=== PATIENT | female | born 1940 | race Caucasian/White ===

== ENCOUNTER 2023-11-16 10:59 | Inpatient (IN) | payer MEDICARE, SELFPAY ==
[2023-11-16] VITALS (19 sets, daily range): BP systolic 133–179; BP diastolic 65–97; PULSE 106–125; RESP 16–29; TEMP 36.2–36.6; O2SAT 97–100; BMI 19.8
--- NOTE | ~2023-11-16 | CT_ITS ---
EXAMINATION: CT brain wo con DATE: 11/16/2023 13:44 INDICATION: Altered mental status TECHNIQUE: Computed tomography (CT) of the head was performed without intravenous contrast. The dose- length product was 605.33 mGy-cm. Automated exposure control and iterative reconstruction technique w ere employed. COMPARISON: None FINDINGS: No acute intracranial hemorrhage, infarction, mass or mass effect. Paranasal sinuses and ma stoids are pneumatized. No ventriculomegaly or midline shift. Generalized atrophy. There are scattere d mild periventricular and subcortical white matter changes, most likely related to small vessel isch emic disease (microangiopathy). No depressed skull fractures. Mild intracranial atherosclerosis. IMPRESSION: 1. . No acute intracranial abnormality. Reviewed, dictated and finalized at location B.
--- NOTE | ~2023-11-16 | XR_ITS ---
EXAMINATION: XR chest 1V portable 11/16/2023 11:53 INDICATION: Chest pain and weakness PROCEDURE: AP portable chest COMPARISON: No prior studies for comparison. FINDINGS: The lungs are clear. There is mild cardiomegaly.. There are no pleural effusions. There i s no pneumothorax suspected. Prominent left nipple shadow. IMPRESSION: 1: NO ACUTE CARDIOPULMONARY DISEASE. Reviewed, dictated and finalized at location B.
--- NOTE | ~2023-11-16 | CT_ITS ---
CT chest abdomen pelvis w con Ordering provider: Kostas Rajan MD History: 83 years Female with . Cough congestion abdominal pain . Comparison: None. Technique: CT chest with IV contrast. CT abdomen and pelvis CT abdomen and pelvis with IV and with or al contrast. Radiation reduction technique utilized. The dose-length product was 770.63 mGy-cm. FINDINGS: CHEST: Dilatation of the esophagus is noted with air-fluid level which may indicate reflux or narrowing of t he gastroesophageal junction. Further evaluation advised. --VISUALIZED THORACIC INLET: Normal. --MEDIASTINUM: Aorta/coronary arteries: Mild atheromatous disease. Heart/other: The heart is moderately enlarged. Lymph nodes: No mediastinal or hilar adenopathy. --LUNGS: Atelectasis with minimal effusion seen on the right side. Minimal atelectatic changes in the left side. No pulmonary nodules or masses. No infiltrates. No pneumothorax. --MUSCULOSKELETAL: Soft tissues: The superficial soft tissues are normal. Bones: Moderate degenerative changes of the spine. No suspicious bony lytic or sclerotic lesions. Dex troscoliosis. ABDOMEN/PELVIS: --MUSCULOSKELETAL: Bones: Age appropriate degenerative changes of the spine. No suspicious bony lytic or sclerotic lesio ns. Superficial soft tissues: The superficial soft tissues are normal. --UPPER ABDOMINAL ORGANS: Liver: Normal. Gallbladder: Status post cholecystectomy. Spleen: Normal. Stomach/duodenum: Dilated esophagus with slightly thickened wall of the stomach. Further evaluation a dvised. Pancreas: Normal. Adrenals: Slightly prominent adrenal glands. Kidneys: Possible hypodensity in the left upper pole area. --PELVIC ORGANS: The bladder is normal. No bladder stones. --BOWEL AND MESENTERY: Colon: No evidence of diverticulitis.. Appendix is normal.. Fecal material is impacted in the rectum. Small Bowel: Normal. No obstruction. Peritoneum/mesentery: No free air or free fluid. No mesenteric lymphadenopathy. --RETROPERITONEUM: Mild atheromatous disease of the abdominal aorta. Stents are seen in the common f emoral arteries. No retroperitoneal lymphadenopathy. IMPRESSION: CHEST: 1. Bilateral basal atelectasis with minimal right pleural effusion. 2. Dilated esophagus with air-fluid level and food content. ABDOMEN/PELVIS: 1. No evidence of appendicitis, diverticulitis or intestinal obstruction. 2. Thickened wall of the stomach with Dilated esophagus. Further evaluation advised. 3. Possible hypodensity in the left kidney upper pole. Artifacts are seen in the area. 4. Impacted fecal material in the rectum. Reviewed, dictated and finalized at location A. IMPRESSION: CHEST: 1. Bilateral basal atelectasis with minimal right pleural effusion. 2. Dilated esophagus with air-fluid level and food content. ABDOMEN/PELVIS: 1. No evidence of appendicitis, diverticulitis or intestinal obstruction. 2. Thickened wall of the stomach with Dilated esophagus. Further evaluation ad vised. 3. Possible hypodensity in the left kidney upper pole. Artifacts are seen in t he area. 4. Impacted fecal material in the rectum.
--- NOTE | 2023-11-16 11:16 | ECG_ITS ---
Test Date: 2023-11-16 11:13:08 Measurements Intervals [place] Rate: 117 P: 0 MT: 0 QRS: -74 QRSD: 101 T: 6 QT: 336 QTc: 470 Interpretive Statements ATRIAL FIBRILLATION WITH RAPID VENTRICULAR RESPONSE LOW QRS VOLTAGE IN LIMB LEADS INCOMPLETE RIGHT BUNDLE BRANCH BLOCK LEFT ANTERIOR FASCICULAR BLOCK BASELINE ARTIFACT- I, II, III, AVR, AVL, AVF, V1-V6 ABNORMAL ECG No previous ECG available for comparison Electronically Signed On 11-16-2023 15:40:47 CDT by Chalino Madden D.O.
[2023-11-16 11:31] LABS: Basophils Percent Auto 0.4 % (0.2-1.2); Eosinophils Absolute Auto 0.1 K/mm3 (0-0.3); Eosinophils Percent Auto 0.5 % (0-4.4); Hematocrit 35.2 % (37.0-47.0); Hemoglobin 10.8 g/dL (12.0-15.0); Immature Granulocyte Absolute 0.09 K/mm3 (0.00-0.031); Immature Granulocyte Percent A 0.8 % (0-0.5); Lymphocytes Absolute Auto 0.93 K/mm3 (0.9-3.2); Lymphocytes Percent Auto 8.2 % (18.3-44.2); Mean Corpuscular HGB Conc 30.7 g/dl (32-36); Mean Corpuscular Hemoglobin 27.1 pg (26-34); Mean Corpuscular Volume 88.4 fl (80-100); Monocytes Absolute Auto 1.1 K/mm3 (0.1-0.6); Monocytes Percent Auto 10.1 % (2.6-8.5); Platelet Count Result 457 k/mm3 (150-375); Red Blood Count 3.98 M/mm3 (4.2-5.4); Red Cell Distribution Width 22.6 % (11.5-14.5); White Blood Count 11.3 K/mm3 (4.5-10.0)
[2023-11-16] MEDS: ONDANSETRON INJ 4 MG/2 ML VIAL IV PUSH (11:38)
[2023-11-16] MEDS: SODIUM CHLORIDE 0.9% IV 1,000 ML 999 ML IV CONT (11:38)
[2023-11-16] MEDS: FAMOTIDINE 20 MG/2 ML VIAL IV PUSH (11:38)
[2023-11-16] MEDS: PANTOPRAZOLE SODIUM IV 40 MG VIAL IV PUSH (11:39)
[2023-11-16 11:43] LABS: INR 2.3; Prothrombin Time 25.6 Seconds (11.1-14.7)
[2023-11-16 11:44] LABS: Partial Thromboplastin Time 31.7 Seconds (22.3-36.8)
[2023-11-16 11:55] LABS: Hypochromasia 1+; Platelet Estimate Adequate (Adequate); Schistocytes None Seen
[2023-11-16 11:56] LABS: Add Urine Microscopic? YES; Appearance Urine Cloudy (Clear); Bacteria Urine None Seen /hpf; Bilirubin Urine Negative (Negative); Blood Urine Negative (Negative); Color Urine Yellow (Yellow); Glucose Urine UA Negative (Negative); Ketones Urine Negative (Negative); Leukocyte Esterase Ur Negative LEU/UL (Negative); Nitrate Urine Negative (Negative); Non Pathogenic Casts 0-2; Protein Urine 1+ mg/dL (Negative); RBC Urine 0-2 /hpf (0-2); Specific Grav Ur 1.016 (1.001-1.035); Squamous Epithelial Cell Urine None Seen /hpf (Few); WBC Urine 0-5 /hpf (0-3); pH Urine 7.5 (5.0-9.0)
[2023-11-16 11:57] LABS: Anisocytosis 1+; Crenated RBC 1+
[2023-11-16 13:14] LABS: Alanine Aminotransferase 12 U/L (6-35); Albumin Level 3.6 g/dL (3.5-5.1); Alkaline Phosphatase 80 U/L (38-126); Anion Gap 7 mmol/L (4-12); Aspartate Amino Transferase 19 U/L (14-36); Bilirubin,Total 1.1 mg/dL (0.2-1.3); Blood Urea Nitrogen 14 mg/dL (7-17); Calcium 8.5 mg/dL (8.4-10.2); Carbon Dioxide 22 mmol/L (22-30); Chloride 109 mmol/L (98-107); Estimated CRCL calculation 59 ml/min; Estimated Glomerular Filt Rate > 60; Glucose 98 mg/dL (65-110); Sodium 138 mmol/L (137-145)
[2023-11-16 13:21] LABS: Troponin I < 0.012 ng/mL (0.000-0.034)
--- NOTE | 2023-11-16 13:31 | ED_ITS ---
HPI - Altered Mental Status General Chief Complaint: Altered Mental Status Stated Complaint: mult complaints Time Seen by Provider: 11/16/23 11:14 History of Present Illness HPI narrative: 83-year-old female presented to the emergency department for evaluation for increased generalized weakness, increased congestion with increased nausea and vomiting. Patient is currently residing in [facility] due to increased generalized weakness. Does have a chronic wound on her left lower extremity that is improving per family and is being followed by wound care. Family feels the patient has been having cognitive decline over the last few days. Related Data Home Medications Medication Instructions Recorded Confirmed multivitamin 1 tablet PO DAILY 02/05/19 11/03/23 Allergies Allergy/AdvReac Type Severity Reaction Status Date / Time Sulfa (Sulfonamide Allergy Itching Verified 02/05/19 21:38 Antibiotics) Review of Systems Review of Systems: All systems reviewed & are unremarkable except as noted in HPI and below PMFSH Past Medical History Medical History (Updated 11/16/23 @ 19:52 by Kostas Rajan MD) Atrial fibrillation Dyslipidemia Glaucoma Hypertension Parkinsonian syndrome Patient's son states they were told she did not have this. Peripheral arterial disease Surgical History Surgical History (Updated 11/16/23 @ 18:13 by Leidy oRse PA-C) History of cardiac catheterization History of cataract extraction History of cholecystectomy History of lumbar laminectomy Family History Family History Father Acute myocardial infarction Cerebrovascular accident Other Hypertension Social History Social History (Updated 11/16/23 @ 18:43 by Leidy Rose PA-C) Social History: Surrogate medical decision maker: Jaime Meier, son. Code status: Full code. Smoking packs per day: 0.5 Smoking cigarettes per day: 10.0 Years smoked: 20 Smoking pack-years: 10.00 Smoking status: Former smoker Tobacco type: cigarettes Second hand tobacco smoke exposure: Yes Alcohol intake: former Substance use: never Do You Feel Safe in your Home?: Yes Lack of Transportation: No Lack of Food: Never True Current Housing: I Have Housing Concerned About Future Housing: No Difficulty Paying Gas/Electric Bills: No Difficulty Paying for Meds: No Currently Unemployed: No Education: High School Diploma/GED Difficulty w/ Childcare or Family Care: No Spiritual care concerns: No Agree to blood products: Yes Exam Narrative: APPEARANCE: Ill-appearing HEAD: normocephalic, atraumatic. EYES: PERRLA/EOMI, conjunctivae clear. NOSE: Normal no drainage EARS:TMS clear with good light reflex. THROAT: Pharynx clear, no exudate. NECK: Supple. No adenopathy, no masses. RESPIRATORY: Rhonchi bilaterally CARDIOVASCULAR: Regular rate and rhythm without murmurs rubs or gallops. ABDOMINAL: Soft, nontender, nondistended, normal bowel sounds MUSCULOSKELETAL: Moves all extremities. Strength/ROM intact, No edema, No calf tenderness. NEURO: Alert. Cranial nerves II through XII intact. Grossly intact SKIN: Warm, dry. Normal Color Course Course Emergency Course: Patient was admitted for AFib with RVR and further evaluation for suspected aspi ration Vital Signs Vital signs: Vital Signs Temperature 97.1 F L 11/16/23 11:08 Pulse Rate 119 H 11/16/23 11:08 Respiratory Rate 22 H 11/16/23 11:08 Blood Pressure 164/87 H 11/16/23 11:08 Pulse Oximetry 100 11/16/23 11:08 Oxygen Delivery Room Air 11/16/23 11:08 Temperature 97.2 F L 11/16/23 19:14 Pulse Rate 117 H 11/16/23 19:14 Respiratory Rate 16 11/16/23 19:14 Blood Pressure 133/77 11/16/23 19:14 Pulse Oximetry 98 11/16/23 19:14 Oxygen Delivery Room Air 11/16/23 11:08 MDM - Altered Mental Status MDM Narrative Medical decision making narrative: 83-year-old female presenting to the emergency department for evaluation for cognitive decline increased congestion with associated nausea vomiting. Patient was afebrile but does have a leukocytosis of 11.3 patient's hemoglobin is 10.8 which is similar to her baseline. Elevated INR at 2.3. Patient's CMP is similar to her baseline. UA was negative for infection. Chest x-ray showed no acute cardiopulmonary abnormality. Head CT was ordered due to the patient's co gnitive decline to evaluate for CVA, subdural hematoma or subarachnoid hemorrhage and no acute abnormalities were identified. CT chest abdomen pelvis was ordered due to the patient having chest congestion and complaining of intermittent abdominal discomfort with associated nausea and vomiting. CT did show dilated esophagus with air-fluid level. No evidence of pneumonia. Patient does have history of atrial fibrillation and is on Cardizem. Patient has been unable to tolerate her p.o. medications. Patient was started on Cardizem bolus and infusion patient's heart rate was improved. I discussed the case with the hospitalist patient was accepted for admission to IMU for rate control and GI was consulted. Patient and family were comfortable the plan for admission. All questions concerns were addressed. Differential Diagnosis Differential diagnosis: Likely altered mental status, delirium, dementia and subarachnoid hemorrhage Lab Data Attestation: I reviewed the patient's lab results. 11/16/23 11:21 11/16/23 12:47 Labs: Lab Results 11/16/23 11/16/23 11/16/23 Range/Units 11:21 11:41 12:47 WBC 11.3 H (4.5-10.0) K/mm3 RBC 3.98 L (4.2-5.4) M/mm3 Hgb 10.8 L (12.0-15.0) g/dL Hct 35.2 L (37.0-47.0) % MCV 88.4 (80-100) fl MCH 27.1 (26-34) pg MCHC 30.7 L (32-36) g/dl RDW 22.6 H (11.5-14.5) % Plt Count 457 H (150-375) k/mm3 MPV 9.0 (7.4-10.4) fl Immature Gran % (Auto) 0.8 H (0-0.5) % Neut % (Auto) 80.0 H (45.5-73.1) % Lymph % (Auto) 8.2 L (18.3-44.2) % [place] % (Auto) 10.1 H (2.6-8.5) % Eos % (Auto) 0.5 (0-4.4) % Baso % (Auto) 0.4 (0.2-1.2) % Lymph # (Auto) 0.93 (0.9-3.2) K/mm3 [place] # (Auto) 1.1 H (0.1-0.6) K/mm3 Eos # (Auto) 0.1 (0-0.3) K/mm3 Baso # (Auto) 0.0 (0.0-0.1) K/mm3 Abs Immat Gran (auto) 0.09 H (0.00-0.031) K/mm3 Absolute Neuts (auto) 9.0 H (1.3-6.7) K/mm3 Absolute Nucleated RBC 0.000 (0.0-0.012) K/mm3 Nucleated RBC % 0.0 (0.0-0.2) % Platelet Estimate Adequate (Adequate) Hypochromasia 1+ Anisocytosis 1+ Crenated Cell 1+ Schistocytes None seen PT 25.6 H (11.1-14.7) Seconds INR 2.3 APTT 31.7 (22.3-36.8) Seconds Sodium Cancelled Potassium Chloride Carbon Dioxide Anion Gap BUN Creatinine Estim Creat Clear Calc Estimated GFR Glucose Calcium Total Bilirubin AST ALT Alkaline Phosphatase Troponin I (0.000-0.034) ng/mL Total Protein Albumin Urine Color Yellow (Yellow) Urine Appearance Cloudy H (Clear) Urine pH 7.5 (5.0-9.0) Ur Specific [place] 1.016 (1.001-1.035) Urine Protein 1+ H (Negative) mg/dL Urine Glucose (UA) Negative (Negative) mg/dL Urine Ketones Negative (Negative) mg/dL Ur Blood (Man) Negative (Negative) Urine Nitrate Negative (Negative) Urine Bilirubin Negative (Negative) Urine Urobilinogen 1.0 (<2.0) mg/dL Leukocyte Esterase Rfl Negative (Negative) JORGE LUIS/UL Urine RBC 0-2 (0-2) /hpf Urine WBC 0-5 (0-3) /hpf Ur Squamous Epith Cells None seen (Few) /hpf Urine Bacteria None seen /hpf Urine Casts 0-2 11/16/23 11/16/23 11/16/23 Range/Units 12:47 12:47 12:47 WBC (4.5-10.0) K/mm3 RBC (4.2-5.4) M/mm3 Hgb (12.0-15.0) g/dL Hct (37.0-47.0) % MCV (80-100) fl MCH (26-34) pg MCHC (32-36) g/dl RDW (11.5-14.5) % Plt Count (150-375) k/mm3 MPV (7.4-10.4) fl Immature Gran % (Auto) (0-0.5) % Neut % (Auto) (45.5-73.1) % Lymph % (Auto) (18.3-44.2) % [place] % (Auto) (2.6-8.5) % Eos % (Auto) (0-4.4) % Baso % (Auto) (0.2-1.2) % Lymph # (Auto) (0.9-3.2) K/mm3 [place] # (Auto) (0.1-0.6) K/mm3 Eos # (Auto) (0-0.3) K/mm3 Baso # (Auto) (0.0-0.1) K/mm3 Abs Immat Gran (auto) (0.00-0.031) K/mm3 Absolute Neuts (auto) (1.3-6.7) K/mm3 Absolute Nucleated RBC (0.0-0.012) K/mm3 Nucleated RBC % (0.0-0.2) % Platelet Estimate (Adequate) Hypochromasia Anisocytosis Crenated Cell Schistocytes PT (11.1-14.7) Seconds INR APTT (22.3-36.8) Seconds Sodium 138 Potassium Cancelled 4.0 Chloride Cancelled 109 H Carbon Dioxide Cancelled Anion Gap BUN Creatinine Estim Creat Clear Calc Estimated GFR Glucose Calcium Total Bilirubin AST ALT Alkaline Phosphatase Troponin I (0.000-0.034) ng/mL Total Protein Albumin Urine Color (Yellow) Urine Appearance (Clear) Urine pH (5.0-9.0) Ur Specific [place] (1.001-1.035) Urine Protein (Negative) mg/dL Urine Glucose (UA) (Negative) mg/dL Urine Ketones (Negative) mg/dL Ur Blood (Man) (Negative) Urine Nitrate (Negative) Urine Bilirubin (Negative) Urine Urobilinogen (<2.0) mg/dL Leukocyte Esterase Rfl (Negative) JORGE LUIS/UL Urine RBC (0-2) /hpf Urine WBC (0-3) /hpf Ur Squamous Epith Cells (Few) /hpf Urine Bacteria /hpf Urine Casts 11/16/23 11/16/23 11/16/23 Range/Units 12:47 12:47 12:47 WBC (4.5-10.0) K/mm3 RBC (4.2-5.4) M/mm3 Hgb (12.0-15.0) g/dL Hct (37.0-47.0) % MCV (80-100) fl MCH (26-34) pg MCHC (32-36) g/dl RDW (11.5-14.5) % Plt Count (150-375) k/mm3 MPV (7.4-10.4) fl Immature Gran % (Auto) (0-0.5) % Neut % (Auto) (45.5-73.1) % Lymph % (Auto) (18.3-44.2) % [place] % (Auto) (2.6-8.5) % Eos % (Auto) (0-4.4) % Baso % (Auto) (0.2-1.2) % Lymph # (Auto) (0.9-3.2) K/mm3 [place] # (Auto) (0.1-0.6) K/mm3 Eos # (Auto) (0-0.3) K/mm3 Baso # (Auto) (0.0-0.1) K/mm3 Abs Immat Gran (auto) (0.00-0.031) K/mm3 Absolute Neuts (auto) (1.3-6.7) K/mm3 Absolute Nucleated RBC (0.0-0.012) K/mm3 Nucleated RBC % (0.0-0.2) % Platelet Estimate (Adequate) Hypochromasia Anisocytosis Crenated Cell Schistocytes PT (11.1-14.7) Seconds INR APTT (22.3-36.8) Seconds Sodium Potassium Chloride Carbon Dioxide 22 Anion Gap Cancelled 7 BUN Cancelled 14 Creatinine Cancelled Estim Creat Clear Calc Estimated GFR Glucose Calcium Total Bilirubin AST ALT Alkaline Phosphatase Troponin I (0.000-0.034) ng/mL Total Protein Albumin Urine Color (Yellow) Urine Appearance (Clear) Urine pH (5.0-9.0) Ur Specific [place] (1.001-1.035) Urine Protein (Negative) mg/dL Urine Glucose (UA) (Negative) mg/dL Urine Ketones (Negative) mg/dL Ur Blood (Man) (Negative) Urine Nitrate (Negative) Urine Bilirubin (Negative) Urine Urobilinogen (<2.0) mg/dL Leukocyte Esterase Rfl (Negative) JORGE LUIS/UL Urine RBC (0-2) /hpf Urine WBC (0-3) /hpf Ur Squamous Epith Cells (Few) /hpf Urine Bacteria /hpf Urine Casts 11/16/23 11/16/23 11/16/23 Range/Units 12:47 12:47 12:47 WBC (4.5-10.0) K/mm3 RBC (4.2-5.4) M/mm3 Hgb (12.0-15.0) g/dL Hct (37.0-47.0) % MCV (80-100) fl MCH (26-34) pg MCHC (32-36) g/dl RDW (11.5-14.5) % Plt Count (150-375) k/mm3 MPV (7.4-10.4) fl Immature Gran % (Auto) (0-0.5) % Neut % (Auto) (45.5-73.1) % Lymph % (Auto) (18.3-44.2) % [place] % (Auto) (2.6-8.5) % Eos % (Auto) (0-4.4) % Baso % (Auto) (0.2-1.2) % Lymph # (Auto) (0.9-3.2) K/mm3 [place] # (Auto) (0.1-0.6) K/mm3 Eos # (Auto) (0-0.3) K/mm3 Baso # (Auto) (0.0-0.1) K/mm3 Abs Immat Gran (auto) (0.00-0.031) K/mm3 Absolute Neuts (auto) (1.3-6.7) K/mm3 Absolute Nucleated RBC (0.0-0.012) K/mm3 Nucleated RBC % (0.0-0.2) % Platelet Estimate (Adequate) Hypochromasia Anisocytosis Crenated Cell Schistocytes PT (11.1-14.7) Seconds INR APTT (22.3-36.8) Seconds Sodium Potassium Chloride Carbon Dioxide Anion Gap BUN Creatinine 0.60 L Estim Creat Clear Calc Cancelled 59 Estimated GFR Cancelled > 60 Glucose Cancelled Calcium Total Bilirubin AST ALT Alkaline Phosphatase Troponin I (0.000-0.034) ng/mL Total Protein Albumin Urine Color (Yellow) Urine Appearance (Clear) Urine pH (5.0-9.0) Ur Specific [place] (1.001-1.035) Urine Protein (Negative) mg/dL Urine Glucose (UA) (Negative) mg/dL Urine Ketones (Negative) mg/dL Ur Blood (Man) (Negative) Urine Nitrate (Negative) Urine Bilirubin (Negative) Urine Urobilinogen (<2.0) mg/dL Leukocyte Esterase Rfl (Negative) JORGE LUIS/UL Urine RBC (0-2) /hpf Urine WBC (0-3) /hpf Ur Squamous Epith Cells (Few) /hpf Urine Bacteria /hpf Urine Casts 11/16/23 11/16/23 11/16/23 Range/Units 12:47 12:47 12:47 WBC (4.5-10.0) K/mm3 RBC (4.2-5.4) M/mm3 Hgb (12.0-15.0) g/dL Hct (37.0-47.0) % MCV (80-100) fl MCH (26-34) pg MCHC (32-36) g/dl RDW (11.5-14.5) % Plt Count (150-375) k/mm3 MPV (7.4-10.4) fl Immature Gran % (Auto) (0-0.5) % Neut % (Auto) (45.5-73.1) % Lymph % (Auto) (18.3-44.2) % [place] % (Auto) (2.6-8.5) % Eos % (Auto) (0-4.4) % Baso % (Auto) (0.2-1.2) % Lymph # (Auto) (0.9-3.2) K/mm3 [place] # (Auto) (0.1-0.6) K/mm3 Eos # (Auto) (0-0.3) K/mm3 Baso # (Auto) (0.0-0.1) K/mm3 Abs Immat Gran (auto) (0.00-0.031) K/mm3 Absolute Neuts (auto) (1.3-6.7) K/mm3 Absolute Nucleated RBC (0.0-0.012) K/mm3 Nucleated RBC % (0.0-0.2) % Platelet Estimate (Adequate) Hypochromasia Anisocytosis Crenated Cell Schistocytes PT (11.1-14.7) Seconds INR APTT (22.3-36.8) Seconds Sodium Potassium Chloride Carbon Dioxide Anion Gap BUN Creatinine Estim Creat Clear Calc Estimated GFR Glucose 98 Calcium Cancelled 8.5 Total Bilirubin Cancelled 1.1 AST Cancelled ALT Alkaline Phosphatase Troponin I (0.000-0.034) ng/mL Total Protein Albumin Urine Color (Yellow) Urine Appearance (Clear) Urine pH (5.0-9.0) Ur Specific [place] (1.001-1.035) Urine Protein (Negative) mg/dL Urine Glucose (UA) (Negative) mg/dL Urine Ketones (Negative) mg/dL Ur Blood (Man) (Negative) Urine Nitrate (Negative) Urine Bilirubin (Negative) Urine Urobilinogen (<2.0) mg/dL Leukocyte Esterase Rfl (Negative) JORGE LUIS/UL Urine RBC (0-2) /hpf Urine WBC (0-3) /hpf Ur Squamous Epith Cells (Few) /hpf Urine Bacteria /hpf Urine Casts 11/16/23 11/16/23 11/16/23 Range/Units 12:47 12:47 12:47 WBC (4.5-10.0) K/mm3 RBC (4.2-5.4) M/mm3 Hgb (12.0-15.0) g/dL Hct (37.0-47.0) % MCV (80-100) fl MCH (26-34) pg MCHC (32-36) g/dl RDW (11.5-14.5) % Plt Count (150-375) k/mm3 MPV (7.4-10.4) fl Immature Gran % (Auto) (0-0.5) % Neut % (Auto) (45.5-73.1) % Lymph % (Auto) (18.3-44.2) % [place] % (Auto) (2.6-8.5) % Eos % (Auto) (0-4.4) % Baso % (Auto) (0.2-1.2) % Lymph # (Auto) (0.9-3.2) K/mm3 [place] # (Auto) (0.1-0.6) K/mm3 Eos # (Auto) (0-0.3) K/mm3 Baso # (Auto) (0.0-0.1) K/mm3 Abs Immat Gran (auto) (0.00-0.031) K/mm3 Absolute Neuts (auto) (1.3-6.7) K/mm3 Absolute Nucleated RBC (0.0-0.012) K/mm3 Nucleated RBC % (0.0-0.2) % Platelet Estimate (Adequate) Hypochromasia Anisocytosis Crenated Cell Schistocytes PT (11.1-14.7) Seconds INR APTT (22.3-36.8) Seconds Sodium Potassium Chloride Carbon Dioxide Anion Gap BUN Creatinine Estim Creat Clear Calc Estimated GFR Glucose Calcium Total Bilirubin AST 19 ALT Cancelled 12 Alkaline Phosphatase Cancelled 80 Troponin I < 0.012 (0.000-0.034) ng/mL Total Protein Cancelled Albumin Urine Color (Yellow) Urine Appearance (Clear) Urine pH (5.0-9.0) Ur Specific [place] (1.001-1.035) Urine Protein (Negative) mg/dL Urine Glucose (UA) (Negative) mg/dL Urine Ketones (Negative) mg/dL Ur Blood (Man) (Negative) Urine Nitrate (Negative) Urine Bilirubin (Negative) Urine Urobilinogen (<2.0) mg/dL Leukocyte Esterase Rfl (Negative) JORGE LUIS/UL Urine RBC (0-2) /hpf Urine WBC (0-3) /hpf Ur Squamous Epith Cells (Few) /hpf Urine Bacteria /hpf Urine Casts 11/16/23 11/16/23 11/16/23 Range/Units 12:47 12:47 13:59 WBC (4.5-10.0) K/mm3 RBC (4.2-5.4) M/mm3 Hgb (12.0-15.0) g/dL Hct (37.0-47.0) % MCV (80-100) fl MCH (26-34) pg MCHC (32-36) g/dl RDW (11.5-14.5) % Plt Count (150-375) k/mm3 MPV (7.4-10.4) fl Immature Gran % (Auto) (0-0.5) % Neut % (Auto) (45.5-73.1) % Lymph % (Auto) (18.3-44.2) % [place] % (Auto) (2.6-8.5) % Eos % (Auto) (0-4.4) % Baso % (Auto) (0.2-1.2) % Lymph # (Auto) (0.9-3.2) K/mm3 [place] # (Auto) (0.1-0.6) K/mm3 Eos # (Auto) (0-0.3) K/mm3 Baso # (Auto) (0.0-0.1) K/mm3 Abs Immat Gran (auto) (0.00-0.031) K/mm3 Absolute Neuts (auto) (1.3-6.7) K/mm3 Absolute Nucleated RBC (0.0-0.012) K/mm3 Nucleated RBC % (0.0-0.2) % Platelet Estimate (Adequate) Hypochromasia Anisocytosis Crenated Cell Schistocytes PT (11.1-14.7) Seconds INR APTT (22.3-36.8) Seconds Sodium Potassium Chloride Carbon Dioxide Anion Gap BUN Creatinine Estim Creat Clear Calc Estimated GFR Glucose Calcium Total Bilirubin AST ALT Alkaline Phosphatase Troponin I < 0.012 (0.000-0.034) ng/mL Total Protein 7.0 Albumin Cancelled 3.6 Urine Color (Yellow) Urine Appearance (Clear) Urine pH (5.0-9.0) Ur Specific [place] (1.001-1.035) Urine Protein (Negative) mg/dL Urine Glucose (UA) (Negative) mg/dL Urine Ketones (Negative) mg/dL Ur Blood (Man) (Negative) Urine Nitrate (Negative) Urine Bilirubin (Negative) Urine Urobilinogen (<2.0) mg/dL Leukocyte Esterase Rfl (Negative) JORGE LUIS/UL Urine RBC (0-2) /hpf Urine WBC (0-3) /hpf Ur Squamous Epith Cells (Few) /hpf Urine Bacteria /hpf Urine Casts Imaging Data Radiologist's impression: Impressions Chest X-Ray 11/16/23 12:03 IMPRESSION: 1: NO ACUTE CARDIOPULMONARY DISEASE. Head CT 11/16/23 13:52 IMPRESSION: 1. . No acute intracranial abnormality. Chest/Abdomen/Pelvis CT 11/16/23 14:17 IMPRESSION: CHEST: 1. Bilateral basal atelectasis with minimal right pleural effusion. 2. Dilated esophagus with air-fluid level and food content. ABDOMEN/PELVIS: 1. No evidence of appendicitis, diverticulitis or intestinal obstruction. 2. Thickened wall of the stomach with Dilated esophagus. Further evaluation advised. 3. Possible hypodensity in the left kidney upper pole. Artifacts are seen in the area. 4. Impacted fecal material in the rectum. Critical Care Time Critical Care Time Critical Care Time: Yes Total Critical Care Time: 35 Discharge Plan Discharge Clinical Impression: Atrial fibrillation with rapid ventricular response, AMS (altered mental status), Dilatation of esophagus Patient Disposition: Still a Patient Condition: Stable
[2023-11-16] MEDS: dilTIAZem HCl INJ 25 MG/5 ML VIAL 10 MG IV PUSH (14:24)
[2023-11-16] MEDS: dilTIAZem 100 MG/100 ML 100 MG/100 ML BAG IV CONT (14:24)
[2023-11-16 14:25] LABS: Troponin I < 0.012 ng/mL (0.000-0.034)
--- NOTE | 2023-11-16 15:20 | PM.IMHP ---
H&P: HPI History of Present Illness Date/Time: 11/16/23 17:00 Chief Complaint: Confusion, vomiting, and weakness. Narrative: This is an 83-year-old female with history of atrial fibrillation on chronic anticoagulation, peripheral vascular disease status post carotid endarterectomy and bilateral lower extremity angioplasty and stents, hypertension, dyslipidemia, gastroesophageal reflux disease, anemia, and spinal stenosis who presented to the emergency department via [facility] for evaluation of confusion, vomiting, and weakness. The patient can not provide some history however her son Jaime provides the majority of the following. The patient has had multiple surgeries this year including carotid endarterectomy, bilateral lower extremity PTCA, and EGD for evaluation of dark stools found to have benign gastric polyp. Over the last couple of months family members have noticed that she has been getting confused and that has worsened quite dramatically since she was admitted to [facility] 3 weeks ago for rehab. She has become increasingly weak and is now to the point where she is being transferred with a lift. Family members had dinner with her last night and she seemed to be doing okay. This morning they received a phone call that the patient seemed to be more confused and was actively vomiting. She told her son that she was having some pain in her back as well. There are no reports of fever, cold or flu symptoms, falls, hematemesis, or diarrhea. At the time my evaluation she does not have active complaints and denies chest pain, shortness of breath, abdominal pain, and nausea. She has chronic lower extremity wound which always causes her a bit of pain but not more so than usual at this time. In the ED: Vital signs on arrival include a temperature of 97.1?, blood pressure 164/87, pulse 119, respiratory rate 22, SpO2 100% on room air. EKG showed atrial fibrillation with rapid ventricular response, incomplete right bundle-branch block, low QRS voltage in limb leads, left anterior fascicular block. Labs were significant for WBC count of 11.3, hemoglobin 10.8, INR 2.3, troponin < 0.012. Head CT and chest x-ray were without acute findings. CT of the chest, abdomen, and pelvis showed dilated esophagus with air-fluid level in food content and thickened wall of the stomach as well as impacted fecal material in the rectum. She has been started on a diltiazem drip and she is being admitted in this setting for further treatment and evaluation including GI consultation. Review of Systems Review of Systems: 12 systems were reviewed and are negative except for as per HPI. [facility] Past Medical History Medical History (Updated 11/16/23 @ 22:21 by Leidy Rose PA-C) Atrial fibrillation Chronic anticoagulation Dyslipidemia Glaucoma Hypertension Parkinsonian syndrome Patient has tremors of the arms and jaw but has not had a diagnosis of Parkinson's. Peripheral vascular disease Surgical History Surgical History (Updated 11/16/23 @ 22:15 by Leidy Rose PA-C) History of angioplasty of peripheral vessel Bilateral lower extremity angioplasty and stents. History of cardiac catheterization History of carotid endarterectomy History of cataract extraction History of cholecystectomy History of lumbar laminectomy Family History Family History Father Acute myocardial infarction Cerebrovascular accident Other Hypertension Social History Social History (Updated 11/16/23 @ 22:24 by Leidy Rose PA-C) Social History: Healthcare power of sports attorney: Jaime Meier, shira ([phone]). Code status: Full code. Smoking packs per day: 0.5 Smoking cigarettes per day: 10.0 Years smoked: 20 Smoking pack-years: 10.00 Smoking status: Former smoker Tobacco type: cigarettes Second hand tobacco smoke exposure: Yes Alcohol intake: former Substance use: never Do You Feel Safe in your Home?: Yes Lack of Transportation: No Lack of Food: Never True Current Housing: I Have Housing Concerned About Future Housing: No Difficulty Paying Gas/Electric Bills: No Difficulty Paying for Meds: No Currently Unemployed: No Education: High School Diploma/GED Difficulty w/ Childcare or Family Care: No Spiritual care concerns: No Agree to blood products: Yes Meds Home Medications and Allergies Home Medications Medication Instructions Recorded Confirmed Type multivitamin 1 tablet PO DAILY 02/05/19 11/16/23 History brimonidine 0.2 % eye drops 1 drp LEFT EYE BID #1 mL 02/19/19 11/16/23 Rx brinzolamide 1 %-brimonidine 0.2 % 1 drp ophthalmic (eye) BID #1 mL 02/19/19 11/16/23 Rx eye drops,suspension (Simbrinza) candesartan 32 1 tablet PO DAILY #30 tabs 02/19/19 11/16/23 Rx mg-hydrochlorothiazide 12.5 mg tablet diltiazem HCl 360 mg capsule,24 360 mg PO DAILY #30 caps 02/19/19 11/16/23 Rx hr,extended release gabapentin 300 mg capsule 300 mg PO BID #60 caps 02/19/19 11/16/23 Rx garlic 1,000 mg capsule 1,000 mg PO DAILY #30 caps 02/19/19 11/16/23 Rx latanoprost 0.005 % eye drops 1 drp ophthalmic (eye) HS #1 mL 02/19/19 11/16/23 Rx omeprazole magnesium 20 mg 20 mg PO DAILY #30 caps 02/19/19 11/16/23 Rx capsule,delayed release (Acid Revenue [employer]ant (omeprazole)) potassium chloride 20 mEq 20 meq PO DAILY@0800 #30 tabs 02/19/19 11/16/23 Rx tablet,extended release (K-Tab) pravastatin 20 mg tablet 20 mg PO HS #30 tabs 02/19/19 11/16/23 Rx propranolol 60 mg tablet 60 mg PO Q12H #60 tabs 02/19/19 11/16/23 Rx tizanidine 4 mg tablet 4 mg PO Q8H PRN Muscle Spasm #90 02/19/19 11/16/23 Rx tabs Allergies Allergy/AdvReac Type Severity Reaction Status Date / Time Sulfa (Sulfonamide Allergy Itching Verified 02/05/19 21:38 Antibiotics) Vital Signs Vital Signs - 24 hr 11/16/23 11:08 11/16/23 11:16 11/16/23 11:40 Temperature 97.1 F L Pulse Rate 119 H 123 H 117 H Respiratory Rate 22 H 29 H Blood Pressure 164/87 H Pulse Oximetry 100 100 Oxygen Delivery Room Air 11/16/23 11:46 11/16/23 12:45 11/16/23 14:24 Temperature Pulse Rate 119 H 124 H 115 H Respiratory Rate 26 H 18 Blood Pressure 176/96 H 179/95 H 153/97 H Pulse Oximetry 98 100 Oxygen Delivery 11/16/23 14:27 11/16/23 15:07 11/16/23 15:08 Temperature Pulse Rate 109 H 116 H 115 H Respiratory Rate 20 21 H Blood Pressure 153/97 H 156/77 H 156/77 H Pulse Oximetry 100 100 Oxygen Delivery Exam Narrative: General: Chronically ill, frail elderly female in the semi-Salvador position in bed. Weight: 57.4 kg. BMI: 19.8. HEENT: PERRL, EOMI. Sclera anicteric. Tacky mucous membranes. Neck: Supple. No JVD. Respiratory: Respirations are nonlabored. Lungs are clear a little coarse at the bases but otherwise clear to auscultation. Cardiovascular: Irregularly irregular rate and rhythm. Gastrointestinal: Abdomen is soft, nontender, and nondistended with positive bowel sounds. Occasional belching. Skin: Warm and dry. Feet are cool. Chronic hyperpigmentation of both lower legs consistent with vascular disease. There are scattered ulcerated areas on the toes on both feet. There is an irregularly-shaped ulcer on the left anterior king with pink wound bed and scattered sloughing without evidence of nonviable tissue. A similar smaller ulcer is noted on the right anterior king. Extremities: No cyanosis or clubbing. Chronic [place] edema of the lower legs. Neurological: Alert and oriented x2. Cranial nerves 2-12 are grossly intact. Speech is clear. Generalized weakness without obvious focal deficits. Psychiatric: Pleasantly confused and cooperative. Appropriate mood and flat affect. Repetitive. H&P: Results Labs Labs: Short CBC 11/16/23 Range/Units 11:21 WBC 11.3 H (4.5-10.0) K/mm3 Hgb 10.8 L (12.0-15.0) g/dL Hct 35.2 L (37.0-47.0) % Plt Count 457 H (150-375) k/mm3 BMP 11/16/23 11/16/23 11/16/23 12:47 12:47 12:47 Sodium Cancelled 138 Potassium Cancelled 4.0 Chloride Cancelled Carbon Dioxide BUN Creatinine Glucose Calcium 11/16/23 11/16/23 11/16/23 12:47 12:47 12:47 Sodium Potassium Chloride 109 H Carbon Dioxide Cancelled 22 BUN Cancelled 14 Creatinine Cancelled Glucose Calcium 11/16/23 11/16/23 11/16/23 12:47 12:47 12:47 Sodium Potassium Chloride Carbon Dioxide BUN Creatinine 0.60 L Glucose Cancelled 98 Calcium Cancelled 8.5 Cardiac Enzymes 11/16/23 11/16/23 Range/Units 12:47 13:59 Troponin I < 0.012 < 0.012 (0.000-0.034) ng/mL Liver Function 11/16/23 11/16/23 11/16/23 Range/Units 12:47 12:47 12:47 Total Bilirubin Cancelled 1.1 AST Cancelled 19 ALT Cancelled Alkaline Phosphatase Albumin 11/16/23 11/16/23 11/16/23 Range/Units 12:47 12:47 12:47 Total Bilirubin AST ALT 12 Alkaline Phosphatase Cancelled 80 Albumin Cancelled 3.6 Urine 11/16/23 Range/Units 11:41 Urine Color Yellow (Yellow) Urine Appearance Cloudy H (Clear) Urine pH 7.5 (5.0-9.0) Ur Specific [place] 1.016 (1.001-1.035) Urine Protein 1+ H (Negative) mg/dL Urine Glucose (UA) Negative (Negative) mg/dL Impressions Chest X-Ray 11/16/23 12:03 IMPRESSION: 1: NO ACUTE CARDIOPULMONARY DISEASE. Head CT 11/16/23 13:52 IMPRESSION: 1. .No acute intracranial abnormality. Chest/Abdomen/Pelvis CT 11/16/23 14:17 IMPRESSION: CHEST: 1. Bilateral basal atelectasis with minimal right pleural effusion. 2. Dilated esophagus with air-fluid level and food content. ABDOMEN/PELVIS: 1. No evidence of appendicitis, diverticulitis or intestinal obstruction. 2. Thickened wall of the stomach with Dilated esophagus. Further evaluation advised. 3. Possible hypodensity in the left kidney upper pole. Artifacts are seen in the area. 4. Impacted fecal material in the rectum. 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 Labs, imaging, EKG, and all reports were personally reviewed. The confusion seems to have been developing over last couple of months though has been worse over the last 3 weeks. She has had numerous procedures, hospitalizations, and same-day surgery this year and now she is at [facility] for rehab and the changes in environments are probably a contributing factor. I will ask the nurses to promote a good sleep-wake cycle and minimize interruptions. She is in rapid atrial fibrillation, likely due to the fact that she has not been able to hold down her diltiazem. Continue diltiazem drip at 15 mg/hr which is her typical daily dose. CT scan shows a dilated esophagus with food particles and thickening of the stomach for which Dr. Herman has been consulted. Xarelto is on hold as she may need EGD tomorrow. If she is NPO for longer than 24 hours a heparin drip may be appropriate. Fecal impaction was also noted on CT scan and can be addressed once she is able to lie flat. Chronic anemia stable on review of previous labs. Her chronic wounds look better according to the son. Wound nurse has been consulted. Her home medications will be reviewed and transitioned to IV form if appropriate. Findings and treatment plan were discussed with the patient. Questions were solicited and answered to satisfaction. The patient's medical management will be taken over by the hospitalist team in a.m. Quality VTE Prophylaxis VTE prophylaxis: mechanical ordered If No VTE Prophylaxis Answer both mechanical and pharmacologic: Reason no pharmacologic proph: medical contraindication (possible procedure tomorrow) The patient has been admitted under observation status. Hospitalist MIPS Advance Care Plan I have confirmed that the patient's Advanced Care Plan is present, code status is documented, or surrogate decision maker is listed in patient medical record.: Yes Medication Reconciliation I have utilized all available resources to obtain, update and review the patients current medications (includes all prescriptions, OTC, herbals, cannabis, and nutritional supplements).: Yes
[2023-11-16] MEDS: METOPROLOL TARTRATE INJ 5 MG/5 ML VIAL IV PUSH (18:40)
[2023-11-16] MEDS: LATANOPROST 0.005% OP SOLN 2.5 ML BTL 1 DROP EACH EYE (21:26)
[2023-11-16] MEDS: dilTIAZem 100 MG/100 ML 100 MG/100 ML BAG 15 MG IV CONT (22:59)
[2023-11-17] VITALS (32 sets, daily range): BP systolic 119–150; BP diastolic 68–104; PULSE 82–139; RESP 16–20; TEMP 36.2–37.1; O2SAT 96–100
[2023-11-17 00:27] LABS: Folic Acid 8.8 ng/mL (2.76->20)
[2023-11-17 05:01] LABS: Hematocrit 34.1 % (37.0-47.0); Hemoglobin 10.4 g/dL (12.0-15.0); Mean Corpuscular HGB Conc 30.5 g/dl (32-36); Mean Corpuscular Hemoglobin 26.5 pg (26-34); Mean Corpuscular Volume 86.8 fl (80-100); Mean Platelet Volume 8.9 fl (7.4-10.4); Platelet Count Result 422 k/mm3 (150-375); Red Blood Count 3.93 M/mm3 (4.2-5.4); Red Cell Distribution Width 21.9 % (11.5-14.5); White Blood Count 9.5 K/mm3 (4.5-10.0)
[2023-11-17 05:18] LABS: Anion Gap 12 mmol/L (4-12); Blood Urea Nitrogen 10 mg/dL (7-17); Calcium 8.8 mg/dL (8.4-10.2); Carbon Dioxide 17 mmol/L (22-30); Chloride 108 mmol/L (98-107); Estimated CRCL calculation 55 ml/min; Estimated Glomerular Filt Rate > 60; Glucose 90 mg/dL (65-110); Potassium 3.8 mmol/L (3.4-5.0); Sodium 137 mmol/L (137-145)
[2023-11-17] MEDS: dilTIAZem 100 MG/100 ML 100 MG/100 ML BAG 15 MG IV CONT ×2 (05:35→12:41)
[2023-11-17] MEDS: BRIMONIDINE TARTRATE 0.2% OP SOLN 5 ML BTL 1 DROP LEFT EYE ×2 (09:13→18:34)
[2023-11-17] MEDS: BRINZOLAMIDE 1% OPHTH SUSP 10 ML 1 DROP LEFT EYE ×2 (09:14→18:34)
[2023-11-17] MEDS: PANTOPRAZOLE SODIUM IV 40 MG VIAL IV PUSH ×2 (09:15→20:45)
[2023-11-17] MEDS: ONDANSETRON INJ 4 MG/2 ML VIAL IV PUSH (13:42)
--- NOTE | 2023-11-17 14:22 | P.CONGI_ITS ---
I, Nehemias Tolentino MD, have provided a substantive portion of the care of this patient and discussed the patient with my Nurse Practitioner. I have reviewed any new relevant radiographic and laboratory results including medications. I agree with her documentation as noted below.?I personally performed the medical decision making and much of the history and exam for this encounter. Assessment and Plan Assessment and plan (1) Dilatation of esophagus: Code(s): K22.89 - Other specified disease of esophagus Status: Acute Assessment and Plan: Patient had one vomiting episode after breakfast day of admission 11/16/23. CT chest /abd/pelvis noted dilation of the esophagus with air-fluid levels which may indicate reflux or narrowing at the gastroesophageal junction and slightly thickened wall the stomach. Chronic GERD history and has been maintained on Omeprazole 20 mg daily. She is not on NSAIDs but is on alendronate which can cause esophagitis. She could have underlying stricture at GE junction vs. esophagitis vs. malignancy although less likely or underlying achalasia, although less likely as this is not chronic problem with vomiting or even trouble swallowing. Had EGD 12/2022 due to GI bleed secondary to bleeding gastric polyp on anticoagulation at [facility]. -Will give her clear liquids and advance as tolerated, NPO at midnight for possible EGD tomorrow with Dr. Torrez. She will need to be cleared by cardiology and HR will be need to be better controlled although. -Last dose of Xarelto 11/15/23 evening. Continue to hold for anticipatory EGD tomorrow if cleared by cardiology. -Increase pantoprazole 40 mg IV BID -Monitor for vomiting. (2) Gastric wall thickening: Code(s): K31.89 - Other diseases of stomach and duodenum Status: Acute Assessment and Plan: EGD to be arranged (3) Atrial fibrillation with rapid ventricular response: Code(s): I48.91 - Unspecified atrial fibrillation Status: Acute Assessment and Plan: On cardizem drip HR 130s Cardiology consult pending, appreciate recs. Will need clearance for EGD once stable (4) GERD (gastroesophageal reflux disease): Code(s): K21.9 - Gastro-esophageal reflux disease without esophagitis Status: Acute (5) Hypertension: Code(s): I10 - Essential (primary) hypertension Status: Acute (6) Chronic anemia: Code(s): D64.9 - Anemia, unspecified Status: Acute Assessment and Plan: Stable (7) Chronic anticoagulation: Code(s): Z79.01 - alf (current) use of anticoagulants Status: Acute (8) Peripheral vascular disease: Code(s): I73.9 - Peripheral vascular disease, unspecified Status: Acute GI Consult Note Consult date/time: 11/17/23 14:00 Reason for consult: Reflux HPI: Farnaz Meier is a 83 year old female asked to be seen for request of the hospitalist for reflux. She has a past medical history of AFib on chronic anticoagulation (Eliquis-last dose friday), GI bleed (bleeding gastric polyp 12/2022), peripheral vascular disease status post carotid endarterectomy and bilateral lower extremity angioplasty and stents, hypertension, dyslipidemia, GERD, anemia, and spinal stenosis who presented to the emergency department via EMS from [facility] for evaluation of confusion, vomiting, and weakness. She resides at [facility] for rehab where she has been becoming more confused. Two family members at bedside. Most of history obtained from family at bedside. Family reports that they got a call yesterday morning as patient shortly after breakfast vomited up her food a nd her medications. They were unable to get any further medications or food. She was not having issues with vomiting the night prior with dinner per family. Patient denies any nausea, vomiting, dysphagia odynophagia leading up to yesterday morning she denies any postprandial epigastric pain, constipation, diarrhea, melena or hematochezia. She has been on omeprazole 20 mg daily for many years per family. Patient states that she would occasionally have reflux despite Omeprazole 20 mg daily. Her family states since she has been here in the hospital she has had increased belching and a cough. No known family history of any GI malignancies. Her appetite has been somewhat diminished at her new facility. Denies any NSAIDs. She is on alendronate. Last dose of Elqiuis Friday evening. Today, she has no GI complaints. She is currently NPO. She does state she does not feel well but can't tell me why. She is irregular and tachycardiac on exam. Currently on Cardizem drip and HR 130s on monitor. CT Chest/Abd/Pelvis with Contrast: FINDINGS: CHEST: Dilatation of the esophagus is noted with air-fluid level which may indicate reflux or narrowing of the gastroesophageal junction. Further evaluation advised. --VISUALIZED THORACIC INLET: Normal. --MEDIASTINUM: Aorta/coronary arteries: Mild atheromatous disease. Heart/other: The heart is moderately enlarged. Lymph nodes: No mediastinal or hilar adenopathy. --LUNGS: Atelectasis with minimal effusion seen on the right side. Minimal atelectatic changes in the left side. No pulmonary nodules or masses. No infiltrates. No pneumothorax. --MUSCULOSKELETAL: Soft tissues: The superficial soft tissues are normal. Bones: Moderate degenerative changes of the spine. No suspicious bony lytic or sclerotic lesions. Dextroscoliosis. ABDOMEN/PELVIS: --MUSCULOSKELETAL: Bones: Age appropriate degenerative changes of the spine. No suspicious bony lytic or sclerotic lesions. Superficial soft tissues: The superficial soft tissues are normal. --UPPER ABDOMINAL ORGANS: Liver: Normal. Gallbladder: Status post cholecystectomy. Spleen: Normal. Stomach/duodenum: Dilated esophagus with slightly thickened wall of the stomach. Further evaluation advised. Pancreas: Normal. Adrenals: Slightly prominent adrenal glands. Kidneys: Possible hypodensity in the left upper pole area. --PELVIC ORGANS: The bladder is normal. No bladder stones. --BOWEL AND MESENTERY: Colon: No evidence of diverticulitis.. Appendix is normal.. Fecal material is impacted in the rectum. Small Bowel: Normal. No obstruction. Peritoneum/mesentery: No free air or free fluid. No mesenteric lymphadenopathy. --RETROPERITONEUM: Mild atheromatous disease of the abdominal aorta. Stents are seen in the common femoral arteries. No retroperitoneal lymphadenopathy. IMPRESSION: CHEST: 1. Bilateral basal atelectasis with minimal right pleural effusion. 2. Dilated esophagus with air-fluid level and food content. ABDOMEN/PELVIS: 1. No evidence of appendicitis, diverticulitis or intestinal obstruction. 2. Thickened wall of the stomach with Dilated esophagus. Further evaluation advised. 3. Possible hypodensity in the left kidney upper pole. Artifacts are seen in the area. 4. Impacted fecal material in the rectum. [facility] Past Medical History Medical History (Updated 11/17/23 @ 14:36 by Alice Hernandez APRN) Atrial fibrillation Chronic anticoagulation Dyslipidemia Glaucoma Hypertension Parkinsonian syndrome Patient has tremors of the arms and jaw but has not had a diagnosis of Parkinson's. Peripheral vascular disease Surgical History Surgical History (Updated 11/16/23 @ 22:15 by Leidy Rose PA-C) History of angioplasty of peripheral vessel Bilateral lower extremity angioplasty and stents. History of cardiac catheterization History of carotid endarterectomy History of cataract extraction History of cholecystectomy History of lumbar laminectomy Family History Family History Father Acute myocardial infarction Cerebrovascular accident Other Hypertension Social History Social History (Updated 11/16/23 @ 22:24 by Leidy Rose PA-C) Social History: Healthcare power of estate attorney: Jaime Meier, shira ([phone]). Code status: Full code. Smoking packs per day: 0.5 Smoking cigarettes per day: 10.0 Years smoked: 20 Smoking pack-years: 10.00 Smoking status: Former smoker Tobacco type: cigarettes Second hand tobacco smoke exposure: Yes Alcohol intake: former Substance use: never Do You Feel Safe in your Home?: Yes Lack of Transportation: No Lack of Food: Never True Current Housing: I Have Housing Concerned About Future Housing: No Difficulty Paying Gas/Electric Bills: No Difficulty Paying for Meds: No Currently Unemployed: No Education: High School Diploma/GED Difficulty w/ Childcare or Family Care: No Spiritual care concerns: No Agree to blood products: Yes Meds Home Medications and Allergies Home Medications Medication Instructions Recorded Confirmed Type multivitamin 1 tablet PO DAILY 02/05/19 11/16/23 History brinzolamide 1 %-brimonidine 0.2 % 1 drp ophthalmic (eye) BID #1 mL 02/19/19 11/16/23 Rx eye drops,suspension (Simbrinza) candesartan 32 1 tablet PO DAILY #30 tabs 02/19/19 11/16/23 Rx mg-hydrochlorothiazide 12.5 mg tablet diltiazem HCl 360 mg capsule,24 360 mg PO DAILY #30 caps 02/19/19 11/16/23 Rx hr,extended release latanoprost 0.005 % eye drops 1 drp ophthalmic (eye) HS #1 mL 02/19/19 11/16/23 Rx omeprazole magnesium 20 mg 20 mg PO DAILY #30 caps 02/19/19 11/16/23 Rx capsule,delayed release (Acid [employer] (omeprazole)) potassium chloride 20 mEq 20 meq PO DAILY@0800 #30 tabs 02/19/19 11/16/23 Rx tablet,extended release (K-Tab) pravastatin 20 mg tablet 20 mg PO HS #30 tabs 02/19/19 11/16/23 Rx propranolol 60 mg tablet 60 mg PO Q12H #60 tabs 02/19/19 11/16/23 Rx alendronate 70 mg tablet 70 mg PO WEEKLY 11/17/23 11/17/23 History aspirin 81 mg chewable tablet 81 mg PO QPM 11/17/23 11/17/23 History calcium carbonate 600 mg-vitamin 1 tablet PO QPM 11/17/23 11/17/23 History D3 10 mcg (400 unit) tablet (Calcium with Vitamin D) cyanocobalamin (vitamin B-12) 1,000 mcg IM [id number] 11/17/23 11/17/23 History 1,000 mcg/mL injection solution docusate sodium 100 mg capsule 100 mg PO BID PRN Constipation 11/17/23 11/17/23 History gabapentin 100 mg capsule 100 mg PO TID 11/17/23 11/17/23 History iron,carbonyl 30 mg-vitamin C 10 1 tablet PO BID 11/17/23 11/17/23 History mg-FOS 25 mg chewable tablet light mineral oil 1 %-mineral oil 1 drp ophthalmic (eye) TID PRN Dry 11/17/23 11/17/23 History 4.5 % eye drops (Soothe XP) Eyes megestrol 625 mg/5 mL (125 mg/mL) 5 ml PO DAILY 11/17/23 11/17/23 History oral suspension rivaroxaban 20 mg tablet (Xarelto) 20 mg PO QPM 11/17/23 11/17/23 History sodium chloride 1,000 mg soluble 1,000 mg PO BID 11/17/23 11/17/23 History tablet timolol 0.5 % eye drops 1 drp EACH EYE DAILY 11/17/23 11/17/23 History urea 20 % topical cream 1 applic topical DAILY 11/17/23 11/17/23 History (Ureacin-20) Allergies Allergy/AdvReac Type Severity Reaction Status Date / Time Sulfa (Sulfonamide Allergy Itching Verified 02/05/19 21:38 Antibiotics) Vital Signs Vital Signs - 24 hr 11/16/23 14:24 11/16/23 14:27 11/16/23 15:07 Temperature Pulse Rate 115 H 109 H 116 H Respiratory Rate 20 Blood Pressure 153/97 H 153/97 H 156/77 H Pulse Oximetry 100 Oxygen Delivery 11/16/23 15:08 11/16/23 16:31 11/16/23 17:48 Temperature 97.8 F 97.7 F Pulse Rate 115 H 108 H 125 H Respiratory Rate 21 H 19 16 Blood Pressure 156/77 H 149/70 H 151/81 H Pulse Oximetry 100 97 100 Oxygen Delivery 11/16/23 18:40 11/16/23 19:14 11/16/23 18:00 Temperature 97.2 F L Pulse Rate 123 H 117 H 113 H Respiratory Rate 16 Blood Pressure 133/77 Pulse Oximetry 98 Oxygen Delivery 11/16/23 20:00 11/16/23 22:04 11/16/23 22:00 Temperature Pulse Rate 117 H 117 H 106 H Respiratory Rate Blood Pressure 133/77 147/65 H Pulse Oximetry Oxygen Delivery 11/16/23 20:00 11/16/23 22:00 11/16/23 20:00 Temperature Pulse Rate 115 H 115 H Respiratory Rate Blood Pressure Pulse Oximetry Oxygen Delivery Room Air 11/16/23 22:59 11/16/23 22:58 11/17/23 00:00 Temperature 97.1 F L Pulse Rate 118 H 118 H 119 H Respiratory Rate 16 Blood Pressure 140/92 H Pulse Oximetry 98 Oxygen Delivery 11/17/23 00:00 11/17/23 00:00 11/17/23 00:00 Temperature Pulse Rate 113 H 113 H Respiratory Rate Blood Pressure Pulse Oximetry Oxygen Delivery Room Air 11/17/23 01:49 11/17/23 02:00 11/17/23 04:00 Temperature 97.8 F Pulse Rate 120 H 96 137 H Respiratory Rate 16 Blood Pressure 149/78 H 150/70 H Pulse Oximetry 98 Oxygen Delivery 11/17/23 04:00 11/17/23 04:00 11/17/23 04:00 Temperature Pulse Rate 121 H 121 H Respiratory Rate Blood Pressure Pulse Oximetry Oxygen Delivery Room Air 11/17/23 05:35 11/17/23 05:35 11/17/23 06:00 Temperature Pulse Rate 120 H 120 H 82 Respiratory Rate Blood Pressure 149/78 H Pulse Oximetry Oxygen Delivery 11/17/23 06:00 11/17/23 07:47 11/17/23 10:00 Temperature 98.8 F 97.6 F Pulse Rate 82 127 H 115 H Respiratory Rate 20 20 Blood Pressure 142/78 H 131/71 Pulse Oximetry 99 100 Oxygen Delivery 11/17/23 11:50 11/17/23 12:15 11/17/23 12:41 Temperature 98.0 F Pulse Rate 120 H 118 H 118 H Respiratory Rate 18 Blood Pressure 126/68 126/68 126/68 Pulse Oximetry 99 Oxygen Delivery 11/17/23 08:00 11/17/23 10:00 11/17/23 14:21 Temperature 98.1 F Pulse Rate 115 H 127 H 115 H Respiratory Rate 20 Blood Pressure 131/78 142/78 H 119/69 Pulse Oximetry 100 Oxygen Delivery 11/17/23 12:18 Temperature 98.0 F Pulse Rate 120 H Respiratory Rate 18 Blood Pressure 126/68 Pulse Oximetry 99 Oxygen Delivery Exam Resp: Auscultation: clear to auscultation bilaterally Cardio: Rate: tachycardic Rhythm: abnormal rhythm GI: GI Palp: Yes Soft to palpation, No Tenderness to palpation present (GI) and No Guarding due to palpation present (GI) Auscultation: normal bowel sounds Skin: General skin exam: normal color Neuro: Speech: normal speech Other: tremors noted to upper extremities Results Labs 11/17/23 04:30 11/17/23 04:30 Labs: Short CBC 11/17/23 Range/Units 04:30 WBC 9.5 (4.5-10.0) K/mm3 Hgb 10.4 L (12.0-15.0) g/dL Hct 34.1 L (37.0-47.0) % Plt Count 422 H (150-375) k/mm3 BMP 11/17/23 04:30 Sodium 137 Potassium 3.8 Chloride 108 H Carbon Dioxide 17 L BUN 10 Creatinine 0.60 L Glucose 90 Calcium 8.8 Cardiac Enzymes 11/16/23 Range/Units 13:59 Troponin I < 0.012 (0.000-0.034) ng/mL
--- NOTE | 2023-11-17 14:54 | PM.IMPN ---
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(s): Z79.01 - correction (current) use of anticoagulants Status: Acute (8) Peripheral vascular disease: Code(s): I73.9 - Peripheral vascular disease, unspecified Status: Acute (9) Confusion: Code(s): R41.0 - Disorientation, unspecified Status: Acute Plan The patient presented to the emergency department for evaluation of weakness, increasing confusion, and vomiting as detailed in HPI. Labs, imaging, EKG, and all reports were personally reviewed. The confusion seems to have been developing over last couple of months though has been worse over the last 3 weeks. She has had numerous procedures, hospitalizations, and same-day surgery this year and now she is at [facility] for rehab and the changes in environments are probably a contributing factor. I will ask the nurses to promote a good sleep-wake cycle and minimize interruptions. She is in rapid atrial fibrillation, likely due to the fact that she has not been able to hold down her diltiazem. Continue diltiazem drip at 15 mg/hr which is her typical daily dose. CT scan shows a dilated esophagus with food particles and thickening of the stomach for which Dr. Herman has been consulted. Xarelto is on hold as she may need EGD tomorrow. If she is NPO for longer than 24 hours a heparin drip may be appropriate. Fecal impaction was also noted on CT scan and can be addressed once she is able to lie flat. Chronic anemia stable on review of previous labs. Her chronic wounds look better according to the son. Wound nurse has been consulted. Her home medications will be reviewed and transitioned to IV form if appropriate. 11/16 : Continue cardizem drip Cardiology consulted NPO at midnight for possible EGD tomorrow to assess dilated esophagus with food particles and thickening of the stomach Neurology evaluated agrees with Parkinson's disease Subjective Date/time seen: 11/17/23 14:54 Interval history: Patient was evaluated at the bedside along with her son who is the POA. As mentioned in the HPI patient has multiple comorbid conditions. Patient heart rate has been in 120's in spite of Cardizem drip and it ahs increased from 10-15. Cardiology has been consulted . Currently she lives in [facility] but she has been deteriorating past 1 week rapidly. Lately she has some episodes of vomiting and back pain at the care home. Patient does also have evidence of pill rolling tremor evidence of Parkinson disease and the family wanted Neurology to be evaluated. During the conversation patient is an does not want any aggressive measures and wanted DNR. Review of Systems Review of Systems: 12 systems were reviewed and are negative except for as per HPI. Exam Narrative: General: Chronically ill, frail elderly female in the semi-Salvador position in bed. Weight: 57.4 kg. BMI: 19.8. HEENT: PERRL, EOMI. Sclera anicteric. Tacky mucous membranes. Neck: Supple. No JVD. Respiratory: Respirations are nonlabored. Lungs are clear a little coarse at the bases but otherwise clear to auscultation. Cardiovascular: Irregularly irregular rate and rhythm. Gastrointestinal: Abdomen is soft, nontender, and nondistended with positive bowel sounds. Occasional belching. Skin: Warm and dry. Feet are cool. Chronic hyperpigmentation of both lower legs consistent with vascular disease. There are scattered ulcerated areas on the toes on both feet. There is an irregularly-shaped ulcer on the left anterior king with pink wound bed and scattered sloughing without evidence of nonviable tissue. A similar smaller ulcer is noted on the right anterior king. Extremities: No cyanosis or clubbing. Chronic [place] edema of the lower legs. Neurological: Alert and oriented x2. Cranial nerves 2-12 are grossly intact. Speech is clear. Generalized weakness without obvious focal deficits. Psychiatric: Pleasantly confused and cooperative. Appropriate mood and flat affect. Repetitive. Objective Data Vital Signs Vital Signs: Vital Signs - 24 hr 11/16/23 15:07 11/16/23 15:08 11/16/23 16:31 Temperature 97.8 F Pulse Rate 116 H 115 H 108 H Respiratory Rate 21 H 19 Blood Pressure 156/77 H 156/77 H 149/70 H Pulse Oximetry 100 97 Oxygen Delivery 11/16/23 17:48 11/16/23 18:40 11/16/23 19:14 Temperature 97.7 F 97.2 F L Pulse Rate 125 H 123 H 117 H Respiratory Rate 16 16 Blood Pressure 151/81 H 133/77 Pulse Oximetry 100 98 Oxygen Delivery 11/16/23 18:00 11/16/23 20:00 11/16/23 22:04 Temperature Pulse Rate 113 H 117 H 117 H Respiratory Rate Blood Pressure 133/77 Pulse Oximetry Oxygen Delivery 11/16/23 22:00 11/16/23 20:00 11/16/23 22:00 Temperature Pulse Rate 106 H 115 H 115 H Respiratory Rate Blood Pressure 147/65 H Pulse Oximetry Oxygen Delivery 11/16/23 20:00 11/16/23 22:59 11/16/23 22:58 Temperature Pulse Rate 118 H 118 H Respiratory Rate Blood Pressure Pulse Oximetry Oxygen Delivery Room Air 11/17/23 00:00 11/17/23 00:00 11/17/23 00:00 Temperature 97.1 F L Pulse Rate 119 H 113 H Respiratory Rate 16 Blood Pressure 140/92 H Pulse Oximetry 98 Oxygen Delivery Room Air 11/17/23 00:00 11/17/23 01:49 11/17/23 02:00 Temperature Pulse Rate 113 H 120 H 96 Respiratory Rate Blood Pressure 149/78 H Pulse Oximetry Oxygen Delivery 11/17/23 04:00 11/17/23 04:00 11/17/23 04:00 Temperature 97.8 F Pulse Rate 137 H 121 H Respiratory Rate 16 Blood Pressure 150/70 H Pulse Oximetry 98 Oxygen Delivery Room Air 11/17/23 04:00 11/17/23 05:35 11/17/23 05:35 Temperature Pulse Rate 121 H 120 H 120 H Respiratory Rate Blood Pressure 149/78 H Pulse Oximetry Oxygen Delivery 11/17/23 06:00 11/17/23 06:00 11/17/23 07:47 Temperature 98.8 F Pulse Rate 82 82 127 H Respiratory Rate 20 Blood Pressure 142/78 H Pulse Oximetry 99 Oxygen Delivery 11/17/23 10:00 11/17/23 11:50 11/17/23 12:15 Temperature 97.6 F 98.0 F Pulse Rate 115 H 120 H 118 H Respiratory Rate 20 18 Blood Pressure 131/71 126/68 126/68 Pulse Oximetry 100 99 Oxygen Delivery 11/17/23 12:41 11/17/23 08:00 11/17/23 10:00 Temperature Pulse Rate 118 H 115 H 127 H Respiratory Rate Blood Pressure 126/68 131/78 142/78 H Pulse Oximetry Oxygen Delivery 11/17/23 14:21 11/17/23 12:18 Temperature 98.1 F 98.0 F Pulse Rate 115 H 120 H Respiratory Rate 20 18 Blood Pressure 119/69 126/68 Pulse Oximetry 100 99 Oxygen Delivery Intake/Output Intake/Output: Intake & Output 11/14/23 11/15/23 11/16/23 11/17/23 23:59 23:59 23:59 23:59 Intake Total 1100.0 199.0 Balance 1100.0 199.0 Meds/Results Medications: Active Medications Generic Name Dose Route Start Last Admin Trade Name Freq PRN Reason Stop Dose Admin Brimonidine Tartrate 1 drop 11/17/23 09:00 11/17/23 09:13 Brimonidine Tartrate 0.2% Op Soln 5 Ml Btl LEFT EYE 1 drop BID RAHEEL Administration Brinzolamide 1 drop 11/17/23 09:00 11/17/23 09:14 Brinzolamide 1% Ophth Susp 10 Ml LEFT EYE 1 drop BID RAHEEL Administration Diltiazem HCl 100 mg in 100 mls @ 15 mls/hr 11/16/23 20:55 11/17/23 12:41 Cardizem 100 Mg/100 Ml IV CONT 15 mg/hr .Q6H40M RAHEEL 15 mls/hr Administration 15 MG/HR Latanoprost 1 drop 11/16/23 21:00 11/16/23 21:26 Latanoprost 0.005% Op Soln 2.5 Ml Btl EACH EYE 1 drop HS RAHEEL Administration Ondansetron HCl 4 mg 11/16/23 15:04 11/17/23 13:42 Ondansetron Inj 4 Mg/2 Ml Vial IV PUSH 4 mg Q4H PRN Administration Nausea Pantoprazole Sodium 40 mg 11/17/23 21:00 Pantoprazole Sodium Iv 40 Mg Vial IV PUSH Q12HR [facility] Radiology Results: ITS Impressions Chest X-Ray 11/16/23 12:03 IMPRESSION: 1: NO ACUTE CARDIOPULMONARY DISEASE. Head CT 11/16/23 13:52 IMPRESSION: 1. . No acute intracranial abnormality. Chest/Abdomen/Pelvis CT 11/16/23 14:17 IMPRESSION: CHEST: 1. Bilateral basal atelectasis with minimal right pleural effusion. 2. Dilated esophagus with air-fluid level and food content. ABDOMEN/PELVIS: 1. No evidence of appendicitis, diverticulitis or intestinal obstruction. 2. Thickened wall of the stomach with Dilated esophagus. Further evaluation advised. 3. Possible hypodensity in the left kidney upper pole. Artifacts are seen in the area. 4. Impacted fecal material in the rectum. Labs Labs: Laboratory Results - last 24 hr 11/16/23 11/17/23 12:47 04:30 WBC 9.5 RBC 3.93 L Hgb 10.4 L Hct 34.1 L MCV 86.8 MCH 26.5 MCHC 30.5 L RDW 21.9 H Plt Count 422 H MPV 8.9 Sodium 137 Potassium 3.8 Chloride 108 H Carbon Dioxide 17 L Anion Gap 12 BUN 10 Creatinine 0.60 L Estim Creat Clear Calc 55 Estimated GFR > 60 Glucose 90 Calcium 8.8 Magnesium 2.0 Vitamin B12 303.0 Folate 8.8 TSH (Reflex) 1.080 Quality VTE Prophylaxis VTE prophylaxis: mechanical ordered Hospitalist MIPS Advance Care Plan I have confirmed that the patient's Advanced Care Plan is present, code status is documented, or surrogate decision maker is listed in patient medical record.: Yes Medication Reconciliation I have utilized all available resources to obtain, update and review the patients current medications (includes all prescriptions, OTC, herbals, cannabis, and nutritional supplements).: Yes
--- NOTE | 2023-11-17 16:48 | P.CONCA_ITS ---
Assessment and Plan Assessment and plan (1) Atrial fibrillation: Code(s): I48.91 - Unspecified atrial fibrillation Status: Acute Assessment and Plan: Chronic. Rapid currently. [id number] 5. On Xarelto which is on hold since cannot take PO. Increase Diltiazem drip 20 mg/hr and start Metoprolol tartate 5 mg IV every 2 hours prn for tachycardia with parameters. Once able to take PO meds then will resume Diltiazem PO and she is on Propranolol. Hopefully will be able to get HR under control by morning so she may proceed to EGD safely. (2) Peripheral vascular disease: Code(s): I73.9 - Peripheral vascular disease, unspecified Status: Acute Assessment and Plan: On aspirin and Xarelto normally. (3) Hypertension: Code(s): I10 - Essential (primary) hypertension Status: Acute Assessment and Plan: High. Monitor as HR is being controlled. (4) Dyslipidemia: Code(s): E78.5 - Hyperlipidemia, unspecified Status: Acute Assessment and Plan: On Pravastatin. History of Present Illness History of Present Illness Consult date/time: 11/17/23 16:48 Reason For Visit: Nausea/Vomiting/Afib with RVR Narrative: 83 yr old woman admitted for weakness, confusion, vomiting. She has a history of chronic atrial fibrillation, hypertension, dyslipidemia, PAD with PTCA and stents to bilateral legs in September 2023, right CEA in Mar 2023. Her regular remodeler is Dr. Avendano at [place]. Her son is at bedside. Due to vomiting she has not been absorbing her medication she is taking. She is now NPO for plans to do EGD tomorrow if her HR is controlled. She is currently placed on Diltiazem drip. She reports feeling weak. Normally she cannot walk due to progressive weakness of legs which could be due to PAD. Denies chest pain, sob, orthopnea, PND, edema, dizziness. Review of Systems Review of Systems: All systems reviewed & are unremarkable except as noted in HPI and below Constitutional: Constitutional: Reports as per HPI, Denies chills, Reports fatigue, Denies fever(s) and Reports lethargy Cardiovascular: Cardiovascular: Reports as per HPI and Denies chest pain Respiratory: Respiratory: Reports as per HPI and Denies dyspnea Gastrointestinal: Gastrointestinal: Reports as per HPI and Reports vomiting Genitourinary: Genitourinary: Reports as per HPI and Denies dysuria Musculoskeletal: Musculoskeletal: Reports as per HPI Neurologic: Reports as per HPI, Denies dizziness and Denies syncope [facility] Past Medical History Medical History (Updated 11/17/23 @ 17:04 by Chalino Madden DO) Atrial fibrillation Chronic anticoagulation Dyslipidemia Glaucoma Hypertension Parkinsonian syndrome Patient has tremors of the arms and jaw but has not had a diagnosis of Parkinson's. Peripheral vascular disease Surgical History Surgical History (Updated 11/16/23 @ 22:15 by Leidy Rose PA-C) History of angioplasty of peripheral vessel Bilateral lower extremity angioplasty and stents. History of cardiac catheterization History of carotid endarterectomy History of cataract extraction History of cholecystectomy History of lumbar laminectomy Family History Family History Father Acute myocardial infarction Cerebrovascular accident Other Hypertension Social History Social History (Updated 11/16/23 @ 22:24 by Leidy Rose PA-C) Social History: Healthcare power of admitted attorneys: Jaime Meier, son ([phone]). Code status: Full code. Smoking packs per day: 0.5 Smoking cigarettes per day: 10.0 Years smoked: 20 Smoking pack-years: 10.00 Smoking status: Former smoker Tobacco type: cigarettes Second hand tobacco smoke exposure: Yes Alcohol intake: former Substance use: never Do You Feel Safe in your Home?: Yes Lack of Transportation: No Lack of Food: Never True Current Housing: I Have Housing Concerned About Future Housing: No Difficulty Paying Gas/Electric Bills: No Difficulty Paying for Meds: No Currently Unemployed: No Education: High School Diploma/GED Difficulty w/ Childcare or Family Care: No Spiritual care concerns: No Agree to blood products: Yes Meds Home Medications and Allergies Home Medications Medication Instructions Recorded Confirmed Type multivitamin 1 tablet PO DAILY 02/05/19 11/16/23 History brinzolamide 1 %-brimonidine 0.2 % 1 drp ophthalmic (eye) BID #1 mL 02/19/19 11/16/23 Rx eye drops,suspension (Simbrinza) candesartan 32 1 tablet PO DAILY #30 tabs 02/19/19 11/16/23 Rx mg-hydrochlorothiazide 12.5 mg tablet diltiazem HCl 360 mg capsule,24 360 mg PO DAILY #30 caps 02/19/19 11/16/23 Rx hr,extended release latanoprost 0.005 % eye drops 1 drp ophthalmic (eye) HS #1 mL 02/19/19 11/16/23 Rx omeprazole magnesium 20 mg 20 mg PO DAILY #30 caps 02/19/19 11/16/23 Rx capsule,delayed release (Acid Research Nurse Practitioner (omeprazole)) potassium chloride 20 mEq 20 meq PO DAILY@0800 #30 tabs 02/19/19 11/16/23 Rx tablet,extended release (K-Tab) pravastatin 20 mg tablet 20 mg PO HS #30 tabs 02/19/19 11/16/23 Rx propranolol 60 mg tablet 60 mg PO Q12H #60 tabs 02/19/19 11/16/23 Rx alendronate 70 mg tablet 70 mg PO WEEKLY 11/17/23 11/17/23 History aspirin 81 mg chewable tablet 81 mg PO QPM 11/17/23 11/17/23 History calcium 600 mg (as 1 tablet PO QPM 11/17/23 11/17/23 History carbonate)-vitamin D3 10 mcg (400 unit) tablet (Calcium with Vitamin D) cyanocobalamin (vitamin B-12) 1,000 mcg IM [id number] 11/17/23 11/17/23 History 1,000 mcg/mL injection solution docusate sodium 100 mg capsule 100 mg PO BID PRN Constipation 11/17/23 11/17/23 History gabapentin 100 mg capsule 100 mg PO TID 11/17/23 11/17/23 History iron,carbonyl 30 mg-vitamin C 10 1 tablet PO BID 11/17/23 11/17/23 History mg-FOS 25 mg chewable tablet light mineral oil 1 %-mineral oil 1 drp ophthalmic (eye) TID PRN Dry 11/17/23 11/17/23 History 4.5 % eye drops (Soothe XP) Eyes megestrol 625 mg/5 mL (125 mg/mL) 5 ml PO DAILY 11/17/23 11/17/23 History oral suspension rivaroxaban 20 mg tablet (Xarelto) 20 mg PO QPM 11/17/23 11/17/23 History sodium chloride 1,000 mg soluble 1,000 mg PO BID 11/17/23 11/17/23 History tablet timolol 0.5 % eye drops 1 drp EACH EYE DAILY 11/17/23 11/17/23 History urea 20 % topical cream 1 applic topical DAILY 11/17/23 11/17/23 History (Ureacin-20) Allergies Allergy/AdvReac Type Severity Reaction Status Date / Time Sulfa (Sulfonamide Allergy Itching Verified 02/05/19 21:38 Antibiotics) Vital Signs Vital Signs - 24 hr 11/16/23 17:48 11/16/23 18:40 11/16/23 19:14 Temperature 97.7 F 97.2 F L Pulse Rate 125 H 123 H 117 H Respiratory Rate 16 16 Blood Pressure 151/81 H 133/77 Pulse Oximetry 100 98 Oxygen Delivery 11/16/23 18:00 11/16/23 20:00 11/16/23 22:04 Temperature Pulse Rate 113 H 117 H 117 H Respiratory Rate Blood Pressure 133/77 Pulse Oximetry Oxygen Delivery 11/16/23 22:00 11/16/23 20:00 11/16/23 22:00 Temperature Pulse Rate 106 H 115 H 115 H Respiratory Rate Blood Pressure 147/65 H Pulse Oximetry Oxygen Delivery 11/16/23 20:00 11/16/23 22:59 11/16/23 22:58 Temperature Pulse Rate 118 H 118 H Respiratory Rate Blood Pressure Pulse Oximetry Oxygen Delivery Room Air 11/17/23 00:00 11/17/23 00:00 11/17/23 00:00 Temperature 97.1 F L Pulse Rate 119 H 113 H Respiratory Rate 16 Blood Pressure 140/92 H Pulse Oximetry 98 Oxygen Delivery Room Air 11/17/23 00:00 11/17/23 01:49 11/17/23 02:00 Temperature Pulse Rate 113 H 120 H 96 Respiratory Rate Blood Pressure 149/78 H Pulse Oximetry Oxygen Delivery 11/17/23 04:00 11/17/23 04:00 11/17/23 04:00 Temperature 97.8 F Pulse Rate 137 H 121 H Respiratory Rate 16 Blood Pressure 150/70 H Pulse Oximetry 98 Oxygen Delivery Room Air 11/17/23 04:00 11/17/23 05:35 11/17/23 05:35 Temperature Pulse Rate 121 H 120 H 120 H Respiratory Rate Blood Pressure 149/78 H Pulse Oximetry Oxygen Delivery 11/17/23 06:00 11/17/23 06:00 11/17/23 07:47 Temperature 98.8 F Pulse Rate 82 82 127 H Respiratory Rate 20 Blood Pressure 142/78 H Pulse Oximetry 99 Oxygen Delivery 11/17/23 10:00 11/17/23 11:50 11/17/23 12:15 Temperature 97.6 F 98.0 F Pulse Rate 115 H 120 H 118 H Respiratory Rate 20 18 Blood Pressure 131/71 126/68 126/68 Pulse Oximetry 100 99 Oxygen Delivery 11/17/23 12:41 11/17/23 08:00 11/17/23 10:00 Temperature Pulse Rate 118 H 115 H 127 H Respiratory Rate Blood Pressure 126/68 131/78 142/78 H Pulse Oximetry Oxygen Delivery 11/17/23 14:21 11/17/23 16:00 11/17/23 16:22 Temperature 98.1 F 98.3 F Pulse Rate 115 H 136 H Respiratory Rate 20 20 Blood Pressure 119/69 143/104 H 133/79 Pulse Oximetry 100 100 Oxygen Delivery 11/17/23 12:18 Temperature 98.0 F Pulse Rate 120 H Respiratory Rate 18 Blood Pressure 126/68 Pulse Oximetry 99 Oxygen Delivery Exam Const: General: cooperative, healthy appearing and comfortable Resp: Auscultation: clear to auscultation bilaterally, no crackles, no rales, no rhonchi and no wheezes Cardio: Rate: tachycardic Rhythm: abnormal rhythm Heart sounds: no murmurs Peripheral pulses: dorsalis pedis present GI: GI Palp: No abdominal tenderness and Yes Soft to palpation Neuro: General: oriented to person, oriented to place and oriented to time Extrem: Right lower extremity: no edema Left lower extremity: no edema Results Labs and Meds 11/17/23 04:30 11/17/23 04:30 Lab results: CBC 11/17/23 Range/Units 04:30 WBC 9.5 (4.5-10.0) K/mm3 RBC 3.93 L (4.2-5.4) M/mm3 Hgb 10.4 L (12.0-15.0) g/dL Hct 34.1 L (37.0-47.0) % Plt Count 422 H (150-375) k/mm3 Comprehensive Metabolic Panel 11/17/23 Range/Units 04:30 Sodium 137 (137-145) mmol/L Potassium 3.8 (3.4-5.0) mmol/L Chloride 108 H (98-107) mmol/L Carbon Dioxide 17 L (22-30) mmol/L BUN 10 (7-17) mg/dL Creatinine 0.60 L (0.7-1.0) mg/dL Glucose 90 (65-110) mg/dL Calcium 8.8 (8.4-10.2) mg/dL Intake and Output 11/17/23 11/17/23 11/17/23 07:59 15:59 23:59 Intake Total 105.3 93.7 Balance 105.3 93.7 Intake: IV 105.3 93.7 dilTIAZem 100 MG/100 ML 100 mg 105.3 93.7 In 100 ml @ 15 MG/HR 15 mls/hr IV CONT .[id number] [facility] Rx#: [id number] Other: # Urine Diapers 2 3 Patient Weight 11/17/23 23:59 Weight 57.5 kg
[2023-11-17] MEDS: METOPROLOL TARTRATE INJ 5 MG/5 ML VIAL IV PUSH ×2 (17:23→21:29)
[2023-11-17] MEDS: dilTIAZem 100 MG/100 ML 100 MG/100 ML BAG 20 MG IV CONT ×2 (17:32→19:31)
--- NOTE | 2023-11-17 18:04 | WPDNEURCNPN ---
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 Treatment of these may be beneficial however it may take some time. I spoke to her son about this in detail and he voices understanding. We can start on Sinemet 25/100.5 tablet 3 times a day and Aricept 5 mg a day the dose of these will be increased gradually while watching for side effect. After 3-7 days you may increase the dose of Sinemet to 1 tablet 3 times a day and continue the Aricept at 5 mg for now. Evaluation in 6-8 weeks time in the office would be helpful to make further continue adjustment from Neurology point of view. Consult date: 11/17/23 HPI: Farnaz Meier is a 83 year old female seen for initial evaluation. Patient has been noted to have tremulousness and some question regarding underlying memory problems. Patient's son was present the time of the evaluation in fact he had another son on phone throughout the evaluation. Patient has been noted to be tremulous for some time. She has difficulty with ambulation. She also tends to forgetful. She has been now in assisted living and thereafter in [facility] for rehab more recently. Two sons who are close to her and help her. Her memory has declined in the last few months. She also has lost about 10 15 lb of weight in the last 2 months. No history of passing out spell or stroke. No family history of tremor. Patient denies any pain issues. Review of Systems Review of Systems: All systems reviewed & are unremarkable except as noted in HPI and below PMFSH Past Medical History Medical History (Updated 11/17/23 @ 18:07 by Mateo Goff MD) Atrial fibrillation Chronic anticoagulation Dementia Dyslipidemia Glaucoma Hypertension Parkinsonian syndrome Patient has tremors of the arms and jaw but has not had a diagnosis of Parkinson's. Parkinsons disease Peripheral vascular disease Surgical History Surgical History History of angioplasty of peripheral vessel Bilateral lower extremity angioplasty and stents. History of cardiac catheterization History of carotid endarterectomy History of cataract extraction History of cholecystectomy History of lumbar laminectomy Family History Family History Father Acute myocardial infarction Cerebrovascular accident Other Hypertension Social History Social History Social History: Healthcare power of real estate attorney: Jaime Meier, son ([phone]). Code status: Full code. Smoking packs per day: 0.5 Smoking cigarettes per day: 10.0 Years smoked: 20 Smoking pack-years: 10.00 Smoking status: Former smoker Tobacco type: cigarettes Second hand tobacco smoke exposure: Yes Alcohol intake: former Substance use: never Do You Feel Safe in your Home?: Yes Lack of Transportation: No Lack of Food: Never True Current Housing: I Have Housing Concerned About Future Housing: No Difficulty Paying Gas/Electric Bills: No Difficulty Paying for Meds: No Currently Unemployed: No Education: High School Diploma/GED Difficulty w/ Childcare or Family Care: No Spiritual care concerns: No Agree to blood products: Yes Meds Home Medications and Allergies Home Medications Medication Instructions Recorded Confirmed Type multivitamin 1 tablet PO DAILY 02/05/19 11/16/23 History brinzolamide 1 %-brimonidine 0.2 % 1 drp ophthalmic (eye) BID #1 mL 02/19/19 11/16/23 Rx eye drops,suspension (Simbrinza) candesartan 32 1 tablet PO DAILY #30 tabs 02/19/19 11/16/23 Rx mg-hydrochlorothiazide 12.5 mg tablet diltiazem HCl 360 mg capsule,24 360 mg PO DAILY #30 caps 01/03/20 09/29/24 Rx hr,extended release latanoprost 0.005 % eye drops 1 drp ophthalmic (eye) HS #1 mL 02/19/19 11/16/23 Rx omeprazole magnesium 20 mg 20 mg PO DAILY #30 caps 02/19/19 11/16/23 Rx capsule,delayed release (Acid Brush And Broom Clipper (omeprazole)) potassium chloride 20 mEq 20 meq PO DAILY@0800 #30 tabs 02/19/19 11/16/23 Rx tablet,extended release (K-Tab) pravastatin 20 mg tablet 20 mg PO HS #30 tabs 02/19/19 11/16/23 Rx propranolol 60 mg tablet 60 mg PO Q12H #60 tabs 02/19/19 11/16/23 Rx alendronate 70 mg tablet 70 mg PO WEEKLY 11/17/23 11/17/23 History aspirin 81 mg chewable tablet 81 mg PO QPM 11/17/23 11/17/23 History calcium 600 mg (as 1 tablet PO QPM 11/17/23 11/17/23 History carbonate)-vitamin D3 10 mcg (400 unit) tablet (Calcium with Vitamin D) cyanocobalamin (vitamin B-12) 1,000 mcg IM [id number] 11/17/23 11/17/23 History 1,000 mcg/mL injection solution docusate sodium 100 mg capsule 100 mg PO BID PRN Constipation 11/17/23 11/17/23 History gabapentin 100 mg capsule 100 mg PO TID 11/17/23 11/17/23 History iron,carbonyl 30 mg-vitamin C 10 1 tablet PO BID 11/17/23 11/17/23 History mg-FOS 25 mg chewable tablet light mineral oil 1 %-mineral oil 1 drp ophthalmic (eye) TID PRN Dry 11/17/23 11/17/23 History 4.5 % eye drops (Soothe XP) Eyes megestrol 625 mg/5 mL (125 mg/mL) 5 ml PO DAILY 11/17/23 11/17/23 History oral suspension rivaroxaban 20 mg tablet (Xarelto) 20 mg PO QPM 11/17/23 11/17/23 History sodium chloride 1,000 mg soluble 1,000 mg PO BID 11/17/23 11/17/23 History tablet timolol 0.5 % eye drops 1 drp EACH EYE DAILY 11/17/23 11/17/23 History urea 20 % topical cream 1 applic topical DAILY 11/17/23 11/17/23 History (Ureacin-20) Allergies Allergy/AdvReac Type Severity Reaction Status Date / Time Sulfa (Sulfonamide Allergy Itching Verified 02/05/19 21:38 Antibiotics) Vital Signs Vital Signs - 24 hr 11/16/23 18:40 11/16/23 19:14 11/16/23 20:00 Temperature 97.2 F L Pulse Rate 123 H 117 H 117 H Respiratory Rate 16 Blood Pressure 133/77 133/77 Pulse Oximetry 98 Oxygen Delivery 11/16/23 22:04 11/16/23 22:00 11/16/23 20:00 Temperature Pulse Rate 117 H 106 H 115 H Respiratory Rate Blood Pressure 147/65 H Pulse Oximetry Oxygen Delivery 11/16/23 22:00 11/16/23 20:00 11/16/23 22:59 Temperature Pulse Rate 115 H 118 H Respiratory Rate Blood Pressure Pulse Oximetry Oxygen Delivery Room Air 11/16/23 22:58 11/17/23 00:00 11/17/23 00:00 Temperature 97.1 F L Pulse Rate 118 H 119 H 113 H Respiratory Rate 16 Blood Pressure 140/92 H Pulse Oximetry 98 Oxygen Delivery 11/17/23 00:00 11/17/23 00:00 11/17/23 01:49 Temperature Pulse Rate 113 H 120 H Respiratory Rate Blood Pressure 149/78 H Pulse Oximetry Oxygen Delivery Room Air 11/17/23 02:00 11/17/23 04:00 11/17/23 04:00 Temperature 97.8 F Pulse Rate 96 137 H 121 H Respiratory Rate 16 Blood Pressure 150/70 H Pulse Oximetry 98 Oxygen Delivery 11/17/23 04:00 11/17/23 04:00 11/17/23 05:35 Temperature Pulse Rate 121 H 120 H Respiratory Rate Blood Pressure Pulse Oximetry Oxygen Delivery Room Air 11/17/23 05:35 11/17/23 06:00 11/17/23 06:00 Temperature Pulse Rate 120 H 82 82 Respiratory Rate Blood Pressure 149/78 H Pulse Oximetry Oxygen Delivery 11/17/23 07:47 11/17/23 10:00 11/17/23 11:50 Temperature 98.8 F 97.6 F 98.0 F Pulse Rate 127 H 115 H 120 H Respiratory Rate 20 20 18 Blood Pressure 142/78 H 131/71 126/68 Pulse Oximetry 99 100 99 Oxygen Delivery 11/17/23 12:15 11/17/23 12:41 11/17/23 08:00 Temperature Pulse Rate 118 H 118 H 115 H Respiratory Rate Blood Pressure 126/68 126/68 131/78 Pulse Oximetry Oxygen Delivery 11/17/23 10:00 11/17/23 14:21 11/17/23 16:00 Temperature 98.1 F 98.3 F Pulse Rate 127 H 115 H 136 H Respiratory Rate 20 20 Blood Pressure 142/78 H 119/69 143/104 H Pulse Oximetry 100 100 Oxygen Delivery 11/17/23 16:22 11/17/23 17:23 11/17/23 17:30 Temperature Pulse Rate 139 H 138 H Respiratory Rate Blood Pressure 133/79 137/74 Pulse Oximetry Oxygen Delivery 11/17/23 17:32 11/17/23 12:18 Temperature 98.0 F Pulse Rate 138 H 120 H Respiratory Rate 18 Blood Pressure 137/74 126/68 Pulse Oximetry 99 Oxygen Delivery Exam Narrative: Fully conscious alert, no aphasia or dysarthria. Three of the recall was 1/3. She was able to name 2/5 colors she is able to name 3/5 foods. Exam head and neck shows no evidence of external injuries. No nuchal rigidity. Cranial nerves show no facial asymmetry. Pupils are equal reacting. Visual fraire by confrontation are normal. There is no tongue deviation. Face sensation intact. Other cranial nerves within normal limits. Motor system normal power in both upper and lower limbs with exception of left footdrop. There is also discoloration of the toes on both sides.. deep tendon reflexes were absent at both ankles 1. She does have resting pill-rolling type of tremor of both hands right more than left and mild cogwheeling. No dystonic posturing. Since he was in grossly intact. Gait could not be tested at this time. his left footdrop Results Labs 11/17/23 04:30 11/17/23 04:30 Labs: Short CBC 11/17/23 Range/Units 04:30 WBC 9.5 (4.5-10.0) K/mm3 Hgb 10.4 L (12.0-15.0) g/dL Hct 34.1 L (37.0-47.0) % Plt Count 422 H (150-375) k/mm3 [facility] 11/17/23 04:30 Sodium 137 Potassium 3.8 Chloride 108 H Carbon Dioxide 17 L BUN 10 Creatinine 0.60 L Glucose 90 Calcium 8.8
[2023-11-17] MEDS: LATANOPROST 0.005% OP SOLN 2.5 ML BTL 1 DROP EACH EYE (20:45)
[2023-11-17] MEDS: DIGOXIN INJ 250 MCG/ML 2 ML AMP (*BKC) 125 MCG IV PUSH (20:45)
--- NOTE | 2023-11-17 20:48 | PC.NURSE ---
1600- Dr. Madden into see pt-aware of HR /rhythmn- new orders to be ordered by
[2023-11-17 22:40] LABS: Vitamin D 25 Hydroxy 39.2 ng/mL
[2023-11-17] MEDS: CARBIDOPA/LEVODOPA 12.5/50 MG TABLET 1 TABLET PO (22:53)
[2023-11-18] VITALS (32 sets, daily range): BP systolic 128–151; BP diastolic 56–87; PULSE 63–133; RESP 16–20; TEMP 36.4–36.6; O2SAT 96–100; BMI 19.3
[2023-11-18] MEDS: MELATONIN 5 MG TABLET PO (00:28)
[2023-11-18] MEDS: dilTIAZem 100 MG/100 ML 100 MG/100 ML BAG 20 MG IV CONT ×5 (00:31→20:20)
[2023-11-18] MEDS: METOPROLOL TARTRATE INJ 5 MG/5 ML VIAL IV PUSH ×3 (03:38→21:37)
[2023-11-18 05:32] LABS: Mean Corpuscular HGB Conc 30.6 g/dl (32-36); Mean Corpuscular Hemoglobin 26.6 pg (26-34); Mean Platelet Volume 8.7 fl (7.4-10.4); Platelet Count Result 415 k/mm3 (150-375); Red Blood Count 4.14 M/mm3 (4.2-5.4); Red Cell Distribution Width 21.6 % (11.5-14.5); White Blood Count 8.9 K/mm3 (4.5-10.0)
[2023-11-18 05:47] LABS: Anion Gap 12 mmol/L (4-12); Bilirubin,Total 1.3 mg/dL (0.2-1.3); Blood Urea Nitrogen 10 mg/dL (7-17); Calcium 8.7 mg/dL (8.4-10.2); Carbon Dioxide 17 mmol/L (22-30); Chloride 109 mmol/L (98-107); Estimated CRCL calculation 53 ml/min; Estimated Glomerular Filt Rate > 60; Glucose 91 mg/dL (65-110); Potassium 3.8 mmol/L (3.4-5.0); Sodium 138 mmol/L (137-145)
[2023-11-18 05:48] LABS: Alanine Aminotransferase 6 U/L (6-35); Albumin Level 3.9 g/dL (3.5-5.1); Alkaline Phosphatase 84 U/L (38-126); Aspartate Amino Transferase 23 U/L (14-36)
[2023-11-18] MEDS: CARBIDOPA/LEVODOPA 12.5/50 MG TABLET 1 TABLET PO (06:17)
--- NOTE | 2023-11-18 08:09 | PM.PNCARD ---
Progress Note: A&P Assessment and Plan (1) Atrial fibrillation: Code(s): I48.91 - Unspecified atrial fibrillation Status: Acute Assessment and Plan: Chronic. HR fairly well controlled. [id number] 5. On Xarelto which is on hold since cannot take PO. On Diltiazem drip 20 mg/hr and Digoxin 125 mcg IV BID and on Metoprolol tartate 5 mg IV every 2 hours prn for tachycardia with parameters. Once able to take PO meds then will resume Diltiazem PO and she is on Propranolol. Will be giving her 2nd dose of Digoxin this morning. If HR stable may proceed to EGD. (2) Peripheral vascular disease: Code(s): I73.9 - Peripheral vascular disease, unspecified Status: Acute Assessment and Plan: On aspirin and Xarelto normally. (3) Hypertension: Code(s): I10 - Essential (primary) hypertension Status: Acute Assessment and Plan: Stable. Monitor as HR is being controlled. (4) Dyslipidemia: Code(s): E78.5 - Hyperlipidemia, unspecified Status: Acute Assessment and Plan: On Pravastatin. Subjective Date/time seen: 11/18/23 08:09 Interval history: States feels weak. No chest pain or sob. Exam Const: General: cooperative, healthy appearing and comfortable Orientation/consciousness: oriented to person, oriented to place and oriented to time Resp: Auscultation: clear to auscultation bilaterally, no crackles, no rales, no rhonchi and no wheezes Cardio: Rate: regular rate Rhythm: abnormal rhythm Heart sounds: no murmurs Peripheral pulses: dorsalis pedis present Neuro: General: oriented to person, oriented to place and oriented to time Extrem: Right lower extremity: no edema Left lower extremity: no edema Objective Data Vital Signs Vital Signs: Vital Signs - 24 hr 11/17/23 10:00 11/17/23 11:50 11/17/23 12:15 Temperature 97.6 F 98.0 F Pulse Rate 115 H 120 H 118 H Respiratory Rate 20 18 Blood Pressure 131/71 126/68 126/68 Pulse Oximetry 100 99 Oxygen Delivery 11/17/23 12:41 11/17/23 10:00 11/17/23 14:21 Temperature 98.1 F Pulse Rate 118 H 127 H 115 H Respiratory Rate 20 Blood Pressure 126/68 142/78 H 119/69 Pulse Oximetry 100 Oxygen Delivery 11/17/23 16:00 11/17/23 16:22 11/17/23 17:23 Temperature 98.3 F Pulse Rate 136 H 139 H Respiratory Rate 20 Blood Pressure 143/104 H 133/79 Pulse Oximetry 100 Oxygen Delivery 11/17/23 17:30 11/17/23 17:32 11/17/23 18:00 Temperature 98 F Pulse Rate 138 H 138 H 126 H Respiratory Rate 20 Blood Pressure 137/74 137/74 132/78 Pulse Oximetry 100 Oxygen Delivery 11/17/23 19:31 11/17/23 19:31 11/17/23 20:13 Temperature 98.7 F Pulse Rate 110 H 110 H 124 H Respiratory Rate 20 Blood Pressure 132/68 132/68 129/69 Pulse Oximetry 100 Oxygen Delivery 11/17/23 10:00 11/17/23 12:00 11/17/23 14:00 Temperature Pulse Rate 127 H 126 H 115 H Respiratory Rate Blood Pressure Pulse Oximetry Oxygen Delivery 11/17/23 16:00 11/17/23 18:00 11/17/23 14:15 Temperature Pulse Rate 138 H 119 H 115 H Respiratory Rate Blood Pressure 119/69 Pulse Oximetry Oxygen Delivery 11/17/23 16:10 11/17/23 18:10 11/17/23 20:45 Temperature Pulse Rate 135 H 126 H 125 H Respiratory Rate Blood Pressure 133/79 132/78 Pulse Oximetry Oxygen Delivery 11/17/23 21:29 11/17/23 22:00 11/17/23 20:00 Temperature Pulse Rate 133 H 112 H Respiratory Rate Blood Pressure 132/76 Pulse Oximetry Oxygen Delivery 11/17/23 20:00 11/17/23 22:00 11/17/23 20:00 Temperature Pulse Rate 111 H 133 H Respiratory Rate Blood Pressure Pulse Oximetry Oxygen Delivery Room Air 11/17/23 22:00 11/17/23 23:46 11/18/23 00:00 Temperature 98.7 F Pulse Rate 111 H 119 H 102 H Respiratory Rate 20 Blood Pressure 143/99 H Pulse Oximetry 96 Oxygen Delivery 11/18/23 00:27 11/18/23 02:04 11/18/23 00:00 Temperature Pulse Rate 123 H 104 H Respiratory Rate Blood Pressure 130/87 Pulse Oximetry Oxygen Delivery 11/18/23 00:00 11/18/23 02:00 11/18/23 00:31 Temperature Pulse Rate 121 H 123 H Respiratory Rate Blood Pressure Pulse Oximetry Oxygen Delivery Room Air 11/18/23 00:31 11/18/23 03:38 11/18/23 04:00 Temperature 97.6 F Pulse Rate 123 H 123 H 124 H Respiratory Rate 20 Blood Pressure 141/63 H Pulse Oximetry 96 Oxygen Delivery 11/18/23 05:19 11/18/23 05:20 11/18/23 04:00 Temperature Pulse Rate 111 H 110 H 92 Respiratory Rate Blood Pressure Pulse Oximetry Oxygen Delivery 11/18/23 04:00 11/18/23 06:00 11/18/23 06:00 Temperature Pulse Rate 98 Respiratory Rate Blood Pressure 128/85 Pulse Oximetry Oxygen Delivery Room Air 11/18/23 06:00 11/18/23 02:00 11/18/23 04:00 Temperature Pulse Rate 98 123 H 133 H Respiratory Rate Blood Pressure Pulse Oximetry Oxygen Delivery 11/18/23 08:00 11/17/23 12:18 Temperature 98 F 98.0 F Pulse Rate 63 120 H Respiratory Rate 20 18 Blood Pressure 140/60 126/68 Pulse Oximetry 100 99 Oxygen Delivery Intake/Output Intake/Output: Intake & Output 11/15/23 11/16/23 11/17/23 11/18/23 23:59 23:59 23:59 23:59 Intake Total 1100.0 480.7 159.6 Balance 1100.0 480.7 159.6 Meds/Results Medications: Active Medications Generic Name Dose Route Start Last Admin Trade Name Freq PRN Reason Stop Dose Admin Brimonidine Tartrate 1 drop 11/18/23 09:00 Brimonidine Tartrate 0.2% Op Soln 5 Ml Btl EACH EYE BID RAHEEL Brinzolamide 1 drop 11/18/23 09:00 Brinzolamide 1% Ophth Susp 10 Ml EACH EYE BID RAHEEL Carbidopa/Levodopa 1 tablet 11/24/23 22:00 Carbidopa/Levodopa 25/100 Mg Tablet PO Q8HR RAHEEL Carbidopa/Levodopa 1 tablet 11/17/23 22:00 11/18/23 06:17 Carbidopa/Levodopa 12.5/50 Mg Tablet PO 11/24/23 14:01 1 tablet Q8HR RAHEEL Administration Digoxin 125 mcg 11/17/23 20:25 11/17/23 20:45 Digoxin Inj 250 Mcg/Ml 2 Ml Amp (*Bkc) IV PUSH 125 mcg Q12HR RAHEEL Administration Donepezil HCl 5 mg 11/18/23 09:00 Donepezil Hcl 5 Mg Tablet PO QAM RAHEEL Diltiazem HCl 100 mg in 100 mls @ 20 mls/hr 11/16/23 20:55 11/18/23 06:00 Cardizem 100 Mg/100 Ml IV CONT 20 mg/hr .Q5H RAHEEL 20 mls/hr Infusion 20 MG/HR Latanoprost 1 drop 11/16/23 21:00 11/17/23 20:45 Latanoprost 0.005% Op Soln 2.5 Ml Btl EACH EYE 1 drop HS RAHEEL Administration Melatonin 5 mg 11/17/23 23:33 11/18/23 00:28 Melatonin 5 Mg Tablet PO 5 mg HS PRN Administration Sleep Metoprolol Tartrate 5 mg 11/17/23 16:46 11/18/23 03:38 Metoprolol Tartrate Inj 5 Mg/5 Ml Vial IV PUSH 5 mg Q2HR PRN Administration Tachycardia Ondansetron HCl 4 mg 11/16/23 15:04 11/17/23 13:42 Ondansetron Inj 4 Mg/2 Ml Vial IV PUSH 4 mg Q4H PRN Administration Nausea Pantoprazole Sodium 40 mg 11/17/23 21:00 11/17/23 20:45 Pantoprazole Sodium Iv 40 Mg Vial IV PUSH 40 mg Q12HR RAHEEL Administration Radiology Results: ITS Impressions Chest X-Ray 11/16/23 12:03 IMPRESSION: 1: NO ACUTE CARDIOPULMONARY DISEASE. Head CT 11/16/23 13:52 IMPRESSION: 1. . No acute intracranial abnormality. Chest/Abdomen/Pelvis CT 11/16/23 14:17 IMPRESSION: CHEST: 1. Bilateral basal atelectasis with minimal right pleural effusion. 2. Dilated esophagus with air-fluid level and food content. ABDOMEN/PELVIS: 1. No evidence of appendicitis, diverticulitis or intestinal obstruction. 2. Thickened wall of the stomach with Dilated esophagus. Further evaluation advised. 3. Possible hypodensity in the left kidney upper pole. Artifacts are seen in the area. 4. Impacted fecal material in the rectum. Labs Labs: Laboratory Results - last 24 hr 11/17/23 11/18/23 21:36 05:04 WBC 8.9 RBC 4.14 L Hgb 11.0 L Hct 36.0 L MCV 87.0 MCH 26.6 MCHC 30.6 L RDW 21.6 H Plt Count 415 H MPV 8.7 Sodium 138 Potassium 3.8 Chloride 109 H Carbon Dioxide 17 L Anion Gap 12 BUN 10 Creatinine 0.60 L Estim Creat Clear Calc 53 Estimated GFR > 60 Glucose 91 Calcium 8.7 Total Bilirubin 1.3 AST 23 ALT 6 Alkaline Phosphatase 84 Total Protein 8.0 Albumin 3.9 Vitamin D 25-Hydroxy 39.2
[2023-11-18] MEDS: DIGOXIN INJ 250 MCG/ML 2 ML AMP (*BKC) 125 MCG IV PUSH ×2 (08:14→20:10)
[2023-11-18] MEDS: PANTOPRAZOLE SODIUM IV 40 MG VIAL IV PUSH ×2 (08:14→20:10)
[2023-11-18] MEDS: BRINZOLAMIDE 1% OPHTH SUSP 10 ML 1 DROP EACH EYE ×2 (08:18→17:00)
[2023-11-18] MEDS: BRIMONIDINE TARTRATE 0.2% OP SOLN 5 ML BTL 1 DROP EACH EYE ×2 (08:18→17:01)
[2023-11-18] MEDS: SODIUM CHLORIDE 0.9% IV 250 ML IV CONT (10:29)
[2023-11-18] MEDS: SODIUM CHLORIDE 0.9% IV 1,000 ML 75 ML IV CONT (11:33)
--- NOTE | 2023-11-18 13:27 | P.CDI_ITS ---
CDI Query Clarification Request BMI: 19.3 Nutritional Diagnostic Statement: Please refer to the comprehensive nutrition assessment for further information. If you agree with diagnosis of Moderate protein calorie malnutrition related to inadequate energy intake as evidenced by family report of reduced po intake greater than 1 month, a reported -10% wt loss x 3 months, and NFPE findings for moderate subcutaneous fat loss (cheeks) and moderate muscle wasting (confucianism, clavicle). Please specify severity if known: * Mild * Moderate * Severe * Other/Unknown <Marielena Saeed RN - Last Filed: 11/18/23 13:27> Provider Comments * Moderate protein energy malnurition <Gabriel Ahmadi MD - Last Filed: 11/18/23 15:08>
--- NOTE | 2023-11-18 17:07 | P.PNGI_ITS ---
Progress Note: A&P Assessment and Plan (1) GERD (gastroesophageal reflux disease): Code(s): K21.9 - Gastro-esophageal reflux disease without esophagitis Status: Acute (2) Dilatation of esophagus: Code(s): K22.89 - Other specified disease of esophagus Status: Acute Assessment and Plan: noted by CT scan, here with nausea and vomiting, burping had EGD last year when had episode of gib, told that had gastric polyp and bleeding in setting of plavix (3) Nausea and vomiting in adult: Code(s): R11.2 - Nausea with vomiting, unspecified Status: Acute Assessment and Plan: liquid diet, egd tomorrow if afib better (4) Parkinsons disease: Code(s): G20.A1 - Parkinson's disease without dyskinesia, without mention of fluctuations Status: Acute (5) Dementia: Code(s): F03.90 - Unspecified dementia, unspecified severity, without behavioral d isturbance, psychotic disturbance, mood disturbance, and anxiety Status: Acute (6) Atrial fibrillation with rapid ventricular response: Code(s): I48.91 - Unspecified atrial fibrillation Status: Acute Assessment and Plan: egd postponed because afib wiht rvr, on diltiazem gtt Subjective Date/time seen: 11/18/23 17:07 Interval history: she is in afib with RVR, only liquid diet for now, still some nausea family at bedside Review of Systems Review of Systems: All systems reviewed & are unremarkable except as noted in HPI and below Exam Const: General: comfortable HENMT: Face/Nose/Sinus: Normal nares present Eyes: Sclera: sclerae normal Neck: Neck: supple Resp: Auscultation: clear to auscultation bilaterally Cardio: Rate: tachycardic Rhythm: abnormal rhythm GI: GI Palp: Yes Soft to palpation, No Tenderness to palpation present (GI) and No Guarding due to palpation present (GI) Auscultation: normal bowel sounds Skin: General skin exam: normal color Neuro: Speech: normal speech Other: tremors Extrem: General: normal to inspection Psych: Attitude: not belligerent Objective Data Vital Signs Vital Signs: Vital Signs - 24 hr 11/17/23 17:23 11/17/23 17:30 11/17/23 17:32 Temperature Pulse Rate 139 H 138 H 138 H Respiratory Rate Blood Pressure 137/74 137/74 Pulse Oximetry Oxygen Delivery Fraction of Inspired Oxygen 11/17/23 18:00 11/17/23 19:31 11/17/23 19:31 Temperature 98 F Pulse Rate 126 H 110 H 110 H Respiratory Rate 20 Blood Pressure 132/78 132/68 132/68 Pulse Oximetry 100 Oxygen Delivery Fraction of Inspired Oxygen 11/17/23 20:13 11/17/23 18:00 11/17/23 18:10 Temperature 98.7 F Pulse Rate 124 H 119 H 126 H Respiratory Rate 20 Blood Pressure 129/69 132/78 Pulse Oximetry 100 Oxygen Delivery Fraction of Inspired Oxygen 11/17/23 20:45 11/17/23 21:29 11/17/23 22:00 Temperature Pulse Rate 125 H 133 H Respiratory Rate Blood Pressure 132/76 Pulse Oximetry Oxygen Delivery Fraction of Inspired Oxygen 11/17/23 20:00 11/17/23 20:00 11/17/23 22:00 Temperature Pulse Rate 112 H 111 H Respiratory Rate Blood Pressure Pulse Oximetry Oxygen Delivery Room Air Fraction of Inspired Oxygen 11/17/23 20:00 11/17/23 22:00 11/17/23 23:46 Temperature 98.7 F Pulse Rate 133 H 111 H 119 H Respiratory Rate 20 Blood Pressure 143/99 H Pulse Oximetry 96 Oxygen Delivery Fraction of Inspired Oxygen 11/18/23 00:00 11/18/23 00:27 11/18/23 02:04 Temperature Pulse Rate 102 H 123 H Respiratory Rate Blood Pressure 130/87 Pulse Oximetry Oxygen Delivery Fraction of Inspired Oxygen 11/18/23 00:00 11/18/23 00:00 11/18/23 02:00 Temperature Pulse Rate 104 H 121 H Respiratory Rate Blood Pressure Pulse Oximetry Oxygen Delivery Room Air Fraction of Inspired Oxygen 11/18/23 00:31 11/18/23 00:31 11/18/23 03:38 Temperature Pulse Rate 123 H 123 H 123 H Respiratory Rate Blood Pressure Pulse Oximetry Oxygen Delivery Fraction of Inspired Oxygen 11/18/23 04:00 11/18/23 05:19 11/18/23 05:20 Temperature 97.6 F Pulse Rate 124 H 111 H 110 H Respiratory Rate 20 Blood Pressure 141/63 H Pulse Oximetry 96 Oxygen Delivery Fraction of Inspired Oxygen 11/18/23 04:00 11/18/23 04:00 11/18/23 06:00 Temperature Pulse Rate 92 Respiratory Rate Blood Pressure 128/85 Pulse Oximetry Oxygen Delivery Room Air Fraction of Inspired Oxygen 11/18/23 06:00 11/18/23 06:00 11/18/23 02:00 Temperature Pulse Rate 98 98 123 H Respiratory Rate Blood Pressure Pulse Oximetry Oxygen Delivery Fraction of Inspired Oxygen 11/18/23 04:00 11/18/23 08:00 11/18/23 08:14 Temperature 98 F Pulse Rate 133 H 63 112 H Respiratory Rate 20 Blood Pressure 140/60 Pulse Oximetry 100 Oxygen Delivery Fraction of Inspired Oxygen 11/18/23 08:25 11/18/23 10:11 11/18/23 10:11 Temperature Pulse Rate 103 H 108 H Respiratory Rate Blood Pressure 128/72 128/72 Pulse Oximetry 96 Oxygen Delivery Room Air Fraction of Inspired Oxygen 21 11/18/23 10:37 11/18/23 10:00 11/18/23 11:58 Temperature 97.9 F Pulse Rate 121 H 84 Respiratory Rate 17 Blood Pressure 128/72 131/60 Pulse Oximetry 100 Oxygen Delivery Fraction of Inspired Oxygen 11/18/23 08:00 11/18/23 10:00 11/18/23 13:58 Temperature Pulse Rate 115 H 101 H 109 H Respiratory Rate Blood Pressure 140/66 Pulse Oximetry Oxygen Delivery Fraction of Inspired Oxygen 11/18/23 13:59 11/18/23 14:00 11/18/23 15:15 Temperature Pulse Rate 109 H 109 H 105 H Respiratory Rate 20 Blood Pressure 140/70 Pulse Oximetry Oxygen Delivery Fraction of Inspired Oxygen 11/18/23 15:15 11/18/23 16:05 Temperature 97.7 F Pulse Rate 105 H 115 H Respiratory Rate 17 Blood Pressure 141/56 H Pulse Oximetry 100 Oxygen Delivery Fraction of Inspired Oxygen Intake/Output Intake/Output: Intake & Output 11/15/23 11/16/23 11/17/23 11/18/23 23:59 23:59 23:59 23:59 Intake Total 1100.0 480.7 343.3 Balance 1100.0 480.7 343.3 Meds/Results Medications: Active Medications Generic Name Dose Route Start Last Admin Trade Name Freq PRN Reason Stop Dose Admin Brimonidine Tartrate 1 drop 11/18/23 09:00 11/18/23 17:01 Brimonidine Tartrate 0.2% Op Soln 5 Ml Btl EACH EYE 1 drop BID RAHEEL Administration Brinzolamide 1 drop 11/18/23 09:00 11/18/23 17:00 Brinzolamide 1% Ophth Susp 10 Ml EACH EYE 1 drop BID RAHEEL Administration Carbidopa/Levodopa 1 tablet 11/24/23 22:00 Carbidopa/Levodopa 25/100 Mg Tablet PO Q8HR RAHEEL Carbidopa/Levodopa 1 tablet 11/17/23 22:00 11/18/23 13:59 Carbidopa/Levodopa 12.5/50 Mg Tablet PO 11/24/23 14:01 Not Given Q8HR RAHEEL Digoxin 125 mcg 11/17/23 20:25 11/18/23 08:14 Digoxin Inj 250 Mcg/Ml 2 Ml Amp (*Bkc) IV PUSH 125 mcg Q12HR RAHEEL Administration Donepezil HCl 5 mg 11/18/23 09:00 11/18/23 10:28 Donepezil Hcl 5 Mg Tablet PO Not Given QAM RAHEEL Diltiazem HCl 100 mg in 100 mls @ 20 mls/hr 11/16/23 20:55 11/18/23 15:15 Cardizem 100 Mg/100 Ml IV CONT 20 mg/hr .Q5H RAHEEL 20 mls/hr Administration 20 MG/HR Sodium Chloride 1,000 mls @ 75 mls/hr 11/18/23 11:20 11/18/23 11:33 Normal Saline Iv IV CONT 75 mls/hr .[id number] RAHEEL Administration Latanoprost 1 drop 11/16/23 21:00 11/17/23 20:45 Latanoprost 0.005% Op Soln 2.5 Ml Btl EACH EYE 1 drop HS RAHEEL Administration Melatonin 5 mg 11/17/23 23:33 11/18/23 00:28 Melatonin 5 Mg Tablet PO 5 mg HS PRN Administration Sleep Metoprolol Tartrate 5 mg 11/17/23 16:46 11/18/23 10:37 Metoprolol Tartrate Inj 5 Mg/5 Ml Vial IV PUSH 5 mg Q2HR PRN Administration Tachycardia Ondansetron HCl 4 mg 11/16/23 15:04 11/17/23 13:42 Ondansetron Inj 4 Mg/2 Ml Vial IV PUSH 4 mg Q4H PRN Administration Nausea Pantoprazole Sodium 40 mg 11/17/23 21:00 11/18/23 08:14 Pantoprazole Sodium Iv 40 Mg Vial IV PUSH 40 mg Q12HR RAHEEL Administration Radiology Results: ITS Impressions Chest X-Ray 11/16/23 12:03 IMPRESSION: 1: NO ACUTE CARDIOPULMONARY DISEASE. Head CT 11/16/23 13:52 IMPRESSION: 1. . No acute intracranial abnormality. Chest/Abdomen/Pelvis CT 11/16/23 14:17 IMPRESSION: CHEST: 1. Bilateral basal atelectasis with minimal right pleural effusion. 2. Dilated esophagus with air-fluid level and food content. ABDOMEN/PELVIS: 1. No evidence of appendicitis, diverticulitis or intestinal obstruction. 2. Thickened wall of the stomach with Dilated esophagus. Further evaluation advised. 3. Possible hypodensity in the left kidney upper pole. Artifacts are seen in the area. 4. Impacted fecal material in the rectum. Labs Labs: Laboratory Results - last 24 hr 11/17/23 11/18/23 21:36 05:04 WBC 8.9 RBC 4.14 L Hgb 11.0 L Hct 36.0 L MCV 87.0 MCH 26.6 MCHC 30.6 L RDW 21.6 H Plt Count 415 H MPV 8.7 Sodium 138 Potassium 3.8 Chloride 109 H Carbon Dioxide 17 L Anion Gap 12 BUN 10 Creatinine 0.60 L Estim Creat Clear Calc 53 Estimated GFR > 60 Glucose 91 Calcium 8.7 Total Bilirubin 1.3 AST 23 ALT 6 Alkaline Phosphatase 84 Total Protein 8.0 Albumin 3.9 Vitamin D 25-Hydroxy 39.2
--- NOTE | 2023-11-18 18:00 | P.PNIM_ITS ---
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(s): Z79.01 - care home (current) use of anticoagulants Status: Acute (8) Peripheral vascular disease: Code(s): I73.9 - Peripheral vascular disease, unspecified Status: Acute (9) Confusion: Code(s): R41.0 - Disorientation, unspecified Status: Acute Plan Patient unable to do EGD due to atrial fibrillation or ventricular response Continue Cardizem infusion, restart home Cardizem 360 mg daily and to continue propranolol. Cardiology evaluation noted. Monitor very closely. Cardiology and GI following NPO at midnight for possible EGD tomorrow to assess dilated esophagus with food particles and thickening of the stomach Neurology evaluated agrees with Parkinson's disease DVT prophylaxis hold anticoagulation until after EGD. Subjective Date/time seen: 11/18/23 18:00 Interval history: Unable to do EGD due to atrial fibrillation with rapid ventricular response. Restart home Cardizem p.o. and propranolol Review of Systems Review of Systems: 12 systems were reviewed and are negativ e except for as per HPI. Exam Narrative: General: Chronically ill, frail elderly female in the semi-Salvador position in bed. Weight: 57.4 kg. BMI: 19.8. HEENT: PERRL, EOMI. Sclera anicteric. Tacky mucous membranes. Neck: Supple. No JVD. Respiratory: Respirations are nonlabored. Lungs are clear a little coarse at the bases but otherwise clear to auscultation. Cardiovascular: Irregularly irregular rate and rhythm. Gastrointestinal: Abdomen is soft, nontender, and nondistended with positive bowel sounds. Occasional belching. Skin: Warm and dry. Feet are cool. Chronic hyperpigmentation of both lower legs consistent with vascular disease. There are scattered ulcerated areas on the toes on both feet. There is an irregularly-shaped ulcer on the left anterior king with pink wound bed and scattered sloughing without evidence of nonviable tissue. A similar smaller ulcer is noted on the right anterior king. Extremities: No cyanosis or clubbing. Chronic Dowell edema of the lower legs. Neurological: Alert and oriented x2. Cranial nerves 2-12 are grossly intact. Speech is clear. Generalized weakness without obvious focal deficits. Psychiatric: Pleasantly confused and cooperative. Appropriate mood and flat affect. Repetitive. Objective Data Vital Signs Vital Signs: Vital Signs - 24 hr 11/17/23 19:31 11/17/23 19:31 11/17/23 20:13 Temperature 98.7 F Pulse Rate 110 H 110 H 124 H Respiratory Rate 20 Blood Pressure 132/68 132/68 129/69 Pulse Oximetry 100 Oxygen Delivery Fraction of Inspired Oxygen 11/17/23 18:10 11/17/23 20:45 11/17/23 21:29 Temperature Pulse Rate 126 H 125 H 133 H Respiratory Rate Blood Pressure 132/78 Pulse Oximetry Oxygen Delivery Fraction of Inspired Oxygen 11/17/23 22:00 11/17/23 20:00 11/17/23 20:00 Temperature Pulse Rate 112 H Respiratory Rate Blood Pressure 132/76 Pulse Oximetry Oxygen Delivery Room Air Fraction of Inspired Oxygen 11/17/23 22:00 11/17/23 20:00 11/17/23 22:00 Temperature Pulse Rate 111 H 133 H 111 H Respiratory Rate Blood Pressure Pulse Oximetry Oxygen Delivery Fraction of Inspired Oxygen 11/17/23 23:46 11/18/23 00:00 11/18/23 00:27 Temperature 98.7 F Pulse Rate 119 H 102 H 123 H Respiratory Rate 20 Blood Pressure 143/99 H Pulse Oximetry 96 Oxygen Delivery Fraction of Inspired Oxygen 11/18/23 02:04 11/18/23 00:00 11/18/23 00:00 Temperature Pulse Rate 104 H Respiratory Rate Blood Pressure 130/87 Pulse Oximetry Oxygen Delivery Room Air Fraction of Inspired Oxygen 11/18/23 02:00 11/18/23 00:31 11/18/23 00:31 Temperature Pulse Rate 121 H 123 H 123 H Respiratory Rate Blood Pressure Pulse Oximetry Oxygen Delivery Fraction of Inspired Oxygen 11/18/23 03:38 11/18/23 04:00 11/18/23 05:19 Temperature 97.6 F Pulse Rate 123 H 124 H 111 H Respiratory Rate 20 Blood Pressure 141/63 H Pulse Oximetry 96 Oxygen Delivery Fraction of Inspired Oxygen 11/18/23 05:20 11/18/23 04:00 11/18/23 04:00 Temperature Pulse Rate 110 H 92 Respiratory Rate Blood Pressure Pulse Oximetry Oxygen Delivery Room Air Fraction of Inspired Oxygen 11/18/23 06:00 11/18/23 06:00 11/18/23 06:00 Temperature Pulse Rate 98 98 Respiratory Rate Blood Pressure 128/85 Pulse Oximetry Oxygen Delivery Fraction of Inspired Oxygen 11/18/23 02:00 11/18/23 04:00 11/18/23 08:00 Temperature 98 F Pulse Rate 123 H 133 H 63 Respiratory Rate 20 Blood Pressure 140/60 Pulse Oximetry 100 Oxygen Delivery Fraction of Inspired Oxygen 11/18/23 08:14 11/18/23 08:25 11/18/23 10:11 Temperature Pulse Rate 112 H 103 H Respiratory Rate Blood Pressure 128/72 Pulse Oximetry 96 Oxygen Delivery Room Air Fraction of Inspired Oxygen 21 11/18/23 10:11 11/18/23 10:37 11/18/23 10:00 Temperature Pulse Rate 108 H 121 H Respiratory Rate Blood Pressure 128/72 128/72 Pulse Oximetry Oxygen Delivery Fraction of Inspired Oxygen 11/18/23 11:58 11/18/23 08:00 11/18/23 10:00 Temperature 97.9 F Pulse Rate 84 115 H 101 H Respiratory Rate 17 Blood Pressure 131/60 Pulse Oximetry 100 Oxygen Delivery Fraction of Inspired Oxygen 11/18/23 13:58 11/18/23 13:59 11/18/23 14:00 Temperature Pulse Rate 109 H 109 H 109 H Respiratory Rate 20 Blood Pressure 140/66 140/70 Pulse Oximetry Oxygen Delivery Fraction of Inspired Oxygen 11/18/23 15:15 11/18/23 15:15 11/18/23 16:05 Temperature 97.7 F Pulse Rate 105 H 105 H 115 H Respiratory Rate 17 Blood Pressure 141/56 H Pulse Oximetry 100 Oxygen Delivery Fraction of Inspired Oxygen 11/18/23 16:15 Temperature Pulse Rate 115 H Respiratory Rate Blood Pressure Pulse Oximetry Oxygen Delivery Fraction of Inspired Oxygen Intake/Output Intake/Output: Intake & Output 11/15/23 11/16/23 11/17/23 11/18/23 23:59 23:59 23:59 23:59 Intake Total 1100.0 480.7 343.3 Balance 1100.0 480.7 343.3 Meds/Results Medications: Active Medications Generic Name Dose Route Start Last Admin Trade Name Emanuel PRN Reason Stop Dose Admin Brimonidine Tartrate 1 drop 11/18/23 09:00 11/18/23 17:01 Brimonidine Tartrate 0.2% Op Soln 5 Ml Btl EACH EYE 1 drop BID RAHEEL Administration Brinzolamide 1 drop 11/18/23 09:00 11/18/23 17:00 Brinzolamide 1% Ophth Susp 10 Ml EACH EYE 1 drop BID RAHEEL Administration Carbidopa/Levodopa 1 tablet 11/24/23 22:00 Carbidopa/Levodopa 25/100 Mg Tablet PO Q8HR RAHEEL Carbidopa/Levodopa 1 tablet 11/17/23 22:00 11/18/23 13:59 Carbidopa/Levodopa 12.5/50 Mg Tablet PO 11/24/23 14:01 Not Given Q8HR RAHEEL Digoxin 125 mcg 11/17/23 20:25 11/18/23 08:14 Digoxin Inj 250 Mcg/Ml 2 Ml Amp (*Bkc) IV PUSH 125 mcg Q12HR RAHEEL Administration Donepezil HCl 5 mg 11/18/23 09:00 11/18/23 10:28 Donepezil Hcl 5 Mg Tablet PO Not Given QAM RAHEEL Diltiazem HCl 100 mg in 100 mls @ 20 mls/hr 11/16/23 20:55 11/18/23 15:15 Cardizem 100 Mg/100 Ml IV CONT 20 mg/hr .Q5H RAHEEL 20 mls/hr Administration 20 MG/HR Sodium Chloride 1,000 mls @ 75 mls/hr 11/18/23 11:20 11/18/23 11:33 Normal Saline Iv IV CONT 75 mls/hr .[id number] RAHEEL Administration Latanoprost 1 drop 11/16/23 21:00 11/17/23 20:45 Latanoprost 0.005% Op Soln 2.5 Ml Btl EACH EYE 1 drop HS RAHEEL Administration Melatonin 5 mg 11/17/23 23:33 11/18/23 00:28 Melatonin 5 Mg Tablet PO 5 mg HS PRN Administration Sleep Metoprolol Tartrate 5 mg 11/17/23 16:46 11/18/23 10:37 Metoprolol Tartrate Inj 5 Mg/5 Ml Vial IV PUSH 5 mg Q2HR PRN Administration Tachycardia Ondansetron HCl 4 mg 11/16/23 15:04 11/17/23 13:42 Ondansetron Inj 4 Mg/2 Ml Vial IV PUSH 4 mg Q4H PRN Administration Nausea Pantoprazole Sodium 40 mg 11/17/23 21:00 11/18/23 08:14 Pantoprazole Sodium Iv 40 Mg Vial IV PUSH 40 mg Q12HR RAHEEL Administration Radiology Results: ITS Impressions Chest X-Ray 11/16/23 12:03 IMPRESSION: 1: NO ACUTE CARDIOPULMONARY DISEASE. Head CT 11/16/23 13:52 IMPRESSION: 1. . No acute intracranial abnormality. Chest/Abdomen/Pelvis CT 11/16/23 14:17 IMPRESSION: CHEST: 1. Bilateral basal atelectasis with minimal right pleural effusion. 2. Dilated esophagus with air-fluid level and food content. ABDOMEN/PELVIS: 1. No evidence of appendicitis, diverticulitis or intestinal obstruction. 2. Thickened wall of the stomach with Dilated esophagus. Further evaluation advised. 3. Possible hypodensity in the left kidney upper pole. Artifacts are seen in the area. 4. Impacted fecal material in the rectum. Labs Labs: Laboratory Results - last 24 hr 11/17/23 11/18/23 21:36 05:04 WBC 8.9 RBC 4.14 L Hgb 11.0 L Hct 36.0 L MCV 87.0 MCH 26.6 MCHC 30.6 L RDW 21.6 H Plt Count 415 H MPV 8.7 Sodium 138 Potassium 3.8 Chloride 109 H Carbon Dioxide 17 L Anion Gap 12 BUN 10 Creatinine 0.60 L Estim Creat Clear Calc 53 Estimated GFR > 60 Glucose 91 Calcium 8.7 Total Bilirubin 1.3 AST 23 ALT 6 Alkaline Phosphatase 84 Total Protein 8.0 Albumin 3.9 Vitamin D 25-Hydroxy 39.2 Quality VTE Prophylaxis VTE prophylaxis: mechanical ordered
--- NOTE | 2023-11-18 18:06 | PM.IMHP ---
H&P: HPI History of Present Illness Date/Time: 11/18/23 18:06 [facility] Past Medical History Medical History (Updated 11/18/23 @ 17:15 by Nehemias Tolentino MD) Atrial fibrillation Chronic anticoagulation Dementia Dyslipidemia Glaucoma Hypertension Nausea and vomiting in adult Parkinsonian syndrome Patient has tremors of the arms and jaw but has not had a diagnosis of Parkinson's. Parkinsons disease Peripheral vascular disease Surgical History Surgical History History of angioplasty of peripheral vessel Bilateral lower extremity angioplasty and stents. 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 Code status: Full code. Smoking packs per day: 0.5 Smoking cigarettes per day: 10.0 Years smoked: 20 Smoking pack-years: 10.00 Smoking status: Former smoker Tobacco type: cigarettes Second hand tobacco smoke exposure: Yes Alcohol intake: former Substance use: never Do You Feel Safe in your Home?: Yes Lack of Transportation: No Lack of Food: Never True Current Housing: I Have Housing Concerned About Future Housing: No Difficulty Paying Gas/Electric Bills: No Difficulty Paying for Meds: No Currently Unemployed: No Education: High School Diploma/GED Difficulty w/ Childcare or Family Care: No Spiritual care concerns: No Agree to blood products: Yes Meds Home Medications and Allergies Home Medications Medication Instructions Recorded Confirmed Type multivitamin 1 tablet PO DAILY 02/05/19 11/16/23 History brinzolamide 1 %-brimonidine 0.2 % 1 drp ophthalmic (eye) BID #1 mL 02/19/19 11/16/23 Rx eye drops,suspension (Simbrinza) candesartan 32 1 tablet PO DAILY #30 tabs 02/19/19 11/16/23 Rx mg-hydrochlorothiazide 12.5 mg tablet diltiazem HCl 360 mg capsule,24 360 mg PO DAILY #30 caps 02/19/19 11/16/23 Rx hr,extended release latanoprost 0.005 % eye drops 1 drp ophthalmic (eye) HS #1 mL 02/19/19 11/16/23 Rx omeprazole magnesium 20 mg 20 mg PO DAILY #30 caps 02/19/19 11/16/23 Rx capsule,delayed release (Acid Manager Of Housekeeping (omeprazole)) potassium chloride 20 mEq 20 meq PO DAILY@0800 #30 tabs 02/19/19 11/16/23 Rx tablet,extended release (K-Tab) pravastatin 20 mg tablet 20 mg PO HS #30 tabs 02/19/19 11/16/23 Rx propranolol 60 mg tablet 60 mg PO Q12H #60 tabs 02/19/19 11/16/23 Rx alendronate 70 mg tablet 70 mg PO WEEKLY 11/17/23 11/17/23 History aspirin 81 mg chewable tablet 81 mg PO QPM 11/17/23 11/17/23 History calcium 600 mg (as 1 tablet PO QPM 11/17/23 11/17/23 History carbonate)-vitamin D3 10 mcg (400 unit) tablet (Calcium with Vitamin D) cyanocobalamin (vitamin B-12) 1,000 mcg IM [id number] 11/17/23 11/17/23 History 1,000 mcg/mL injection solution docusate sodium 100 mg capsule 100 mg PO BID PRN Constipation 11/17/23 11/17/23 History gabapentin 100 mg capsule 100 mg PO TID 11/17/23 11/17/23 History iron,carbonyl 30 mg-vitamin C 10 1 tablet PO BID 11/17/23 11/17/23 History mg-FOS 25 mg chewable tablet light mineral oil 1 %-mineral oil 1 drp ophthalmic (eye) TID PRN Dry 11/17/23 11/17/23 History 4.5 % eye drops (Soothe XP) Eyes megestrol 625 mg/5 mL (125 mg/mL) 5 ml PO DAILY 11/17/23 11/17/23 History oral suspension rivaroxaban 20 mg tablet (Xarelto) 20 mg PO QPM 11/17/23 11/17/23 History sodium chloride 1,000 mg soluble 1,000 mg PO BID 11/17/23 11/17/23 History tablet timolol 0.5 % eye drops 1 drp EACH EYE DAILY 11/17/23 11/17/23 History urea 20 % topical cream 1 applic topical DAILY 11/17/23 11/17/23 History (Ureacin-20) Allergies Allergy/AdvReac Type Severity Reaction Status Date / Time Sulfa (Sulfonamide Allergy Itching Verified 02/05/19 21:38 Antibiotics) Vital Signs Vital Signs - 24 hr 11/17/23 19:31 11/17/23 19:31 11/17/23 20:13 Temperature 98.7 F Pulse Rate 110 H 110 H 124 H Respiratory Rate 20 Blood Pressure 132/68 132/68 129/69 Pulse Oximetry 100 Oxygen Delivery Fraction of Inspired Oxygen 11/17/23 18:10 11/17/23 20:45 11/17/23 21:29 Temperature Pulse Rate 126 H 125 H 133 H Respiratory Rate Blood Pressure 132/78 Pulse Oximetry Oxygen Delivery Fraction of Inspired Oxygen 11/17/23 22:00 11/17/23 20:00 11/17/23 20:00 Temperature Pulse Rate 112 H Respiratory Rate Blood Pressure 132/76 Pulse Oximetry Oxygen Delivery Room Air Fraction of Inspired Oxygen 11/17/23 22:00 11/17/23 20:00 11/17/23 22:00 Temperature Pulse Rate 111 H 133 H 111 H Respiratory Rate Blood Pressure Pulse Oximetry Oxygen Delivery Fraction of Inspired Oxygen 11/17/23 23:46 11/18/23 00:00 11/18/23 00:27 Temperature 98.7 F Pulse Rate 119 H 102 H 123 H Respiratory Rate 20 Blood Pressure 143/99 H Pulse Oximetry 96 Oxygen Delivery Fraction of Inspired Oxygen 11/18/23 02:04 11/18/23 00:00 11/18/23 00:00 Temperature Pulse Rate 104 H Respiratory Rate Blood Pressure 130/87 Pulse Oximetry Oxygen Delivery Room Air Fraction of Inspired Oxygen 11/18/23 02:00 11/18/23 00:31 11/18/23 00:31 Temperature Pulse Rate 121 H 123 H 123 H Respiratory Rate Blood Pressure Pulse Oximetry Oxygen Delivery Fraction of Inspired Oxygen 11/18/23 03:38 11/18/23 04:00 11/18/23 05:19 Temperature 97.6 F Pulse Rate 123 H 124 H 111 H Respiratory Rate 20 Blood Pressure 141/63 H Pulse Oximetry 96 Oxygen Delivery Fraction of Inspired Oxygen 11/18/23 05:20 11/18/23 04:00 11/18/23 04:00 Temperature Pulse Rate 110 H 92 Respiratory Rate Blood Pressure Pulse Oximetry Oxygen Delivery Room Air Fraction of Inspired Oxygen 11/18/23 06:00 11/18/23 06:00 11/18/23 06:00 Temperature Pulse Rate 98 98 Respiratory Rate Blood Pressure 128/85 Pulse Oximetry Oxygen Delivery Fraction of Inspired Oxygen 11/18/23 02:00 11/18/23 04:00 11/18/23 08:00 Temperature 98 F Pulse Rate 123 H 133 H 63 Respiratory Rate 20 Blood Pressure 140/60 Pulse Oximetry 100 Oxygen Delivery Fraction of Inspired Oxygen 11/18/23 08:14 11/18/23 08:25 11/18/23 10:11 Temperature Pulse Rate 112 H 103 H Respiratory Rate Blood Pressure 128/72 Pulse Oximetry 96 Oxygen Delivery Room Air Fraction of Inspired Oxygen 21 11/18/23 10:11 11/18/23 10:37 11/18/23 10:00 Temperature Pulse Rate 108 H 121 H Respiratory Rate Blood Pressure 128/72 128/72 Pulse Oximetry Oxygen Delivery Fraction of Inspired Oxygen 11/18/23 11:58 11/18/23 08:00 11/18/23 10:00 Temperature 97.9 F Pulse Rate 84 115 H 101 H Respiratory Rate 17 Blood Pressure 131/60 Pulse Oximetry 100 Oxygen Delivery Fraction of Inspired Oxygen 11/18/23 13:58 11/18/23 13:59 11/18/23 14:00 Temperature Pulse Rate 109 H 109 H 109 H Respiratory Rate 20 Blood Pressure 140/66 140/70 Pulse Oximetry Oxygen Delivery Fraction of Inspired Oxygen 11/18/23 15:15 11/18/23 15:15 11/18/23 16:05 Temperature 97.7 F Pulse Rate 105 H 105 H 115 H Respiratory Rate 17 Blood Pressure 141/56 H Pulse Oximetry 100 Oxygen Delivery Fraction of Inspired Oxygen 11/18/23 16:15 11/18/23 18:00 11/18/23 18:00 Temperature Pulse Rate 115 H 98 98 Respiratory Rate Blood Pressure 150/58 H Pulse Oximetry Oxygen Delivery Fraction of Inspired Oxygen H&P: Results Labs Labs: Short CBC 11/18/23 Range/Units 05:04 WBC 8.9 (4.5-10.0) K/mm3 Hgb 11.0 L (12.0-15.0) g/dL Hct 36.0 L (37.0-47.0) % Plt Count 415 H (150-375) k/mm3 BMP 11/18/23 05:04 Sodium 138 Potassium 3.8 Chloride 109 H Carbon Dioxide 17 L BUN 10 Creatinine 0.60 L Glucose 91 Calcium 8.7 Liver Function 11/18/23 Range/Units 05:04 Total Bilirubin 1.3 (0.2-1.3) mg/dL AST 23 (14-36) U/L ALT 6 (6-35) U/L Alkaline Phosphatase 84 (38-126) U/L Albumin 3.9 (3.5-5.1) g/dL Hospitalist MIPS Advance Care Plan I have confirmed that the patient's Advanced Care Plan is present, code status is documented, or surrogate decision maker is listed in patient medical record.: Yes Medication Reconciliation I have utilized all available resources to obtain, update and review the patients current medications (includes all prescriptions, OTC, herbals, cannabis, and nutritional supplements).: Yes
[2023-11-18] MEDS: LATANOPROST 0.005% OP SOLN 2.5 ML BTL 1 DROP EACH EYE (20:01)
[2023-11-19] VITALS (36 sets, daily range): BP systolic 107–147; BP diastolic 50–98; PULSE 79–133; RESP 18–32; TEMP 36.1–36.8; O2SAT 94–100
[2023-11-19] MEDS: SODIUM CHLORIDE 0.9% IV 1,000 ML 75 ML IV CONT ×2 (00:58→16:04)
[2023-11-19] MEDS: dilTIAZem 100 MG/100 ML 100 MG/100 ML BAG 20 MG IV CONT ×5 (01:17→20:38)
[2023-11-19] MEDS: METOPROLOL TARTRATE INJ 5 MG/5 ML VIAL IV PUSH ×2 (02:23→17:40)
[2023-11-19 05:05] LABS: Basophils Percent Auto 0.4 % (0.2-1.2); Eosinophils Absolute Auto 0.1 K/mm3 (0-0.3); Eosinophils Percent Auto 0.6 % (0-4.4); Hematocrit 37.9 % (37.0-47.0); Hemoglobin 11.8 g/dL (12.0-15.0); Immature Granulocyte Absolute 0.11 K/mm3 (0.00-0.031); Lymphocytes Absolute Auto 0.99 K/mm3 (0.9-3.2); Mean Corpuscular HGB Conc 31.1 g/dl (32-36); Mean Corpuscular Hemoglobin 27.3 pg (26-34); Mean Corpuscular Volume 87.7 fl (80-100); Mean Platelet Volume 8.7 fl (7.4-10.4); Monocytes Absolute Auto 1.1 K/mm3 (0.1-0.6); Monocytes Percent Auto 10.1 % (2.6-8.5); Neutrophils Absolute Auto 8.7 K/mm3 (1.3-6.7); Neutrophils Percent Auto 78.9 % (45.5-73.1); Platelet Count Result 425 k/mm3 (150-375); Red Blood Count 4.32 M/mm3 (4.2-5.4)
[2023-11-19 05:15] LABS: Alanine Aminotransferase 13 U/L (6-35); Albumin Level 3.8 g/dL (3.5-5.1); Alkaline Phosphatase 94 U/L (38-126); Anion Gap 13 mmol/L (4-12); Aspartate Amino Transferase 25 U/L (14-36); Bilirubin,Total 1.2 mg/dL (0.2-1.3); Blood Urea Nitrogen 9 mg/dL (7-17); Calcium 8.7 mg/dL (8.4-10.2); Carbon Dioxide 15 mmol/L (22-30); Chloride 110 mmol/L (98-107); Estimated CRCL calculation 53 ml/min; Estimated Glomerular Filt Rate > 60; Glucose 81 mg/dL (65-110); Lactic Acid Reflex 1.5 mmol/L (0.7-2.0); Magnesium 2.1 mg/dL (1.6-2.3); Sodium 138 mmol/L (137-145)
--- NOTE | 2023-11-19 08:12 | PM.PNCARD ---
Progress Note: A&P Assessment and Plan (1) Atrial fibrillation: Code(s): I48.91 - Unspecified atrial fibrillation Status: Acute Assessment and Plan: Chronic. HR fairly well controlled. [id number] 5. On Xarelto which is on hold since cannot take PO. On Diltiazem drip 20 mg/hr and Digoxin 125 mcg IV BID and on Metoprolol tartate 5 mg IV every 2 hours prn for tachycardia with parameters. Once able to take PO meds then will resume Diltiazem PO and she is on Propranolol. HR is stable on above IV medication. May proceed to EGD today from cardiology standpoint. If OK with GI, after EGD would resume Xarelto, PO Diltiazem PO Prapanolol, and stop IV Diltiazem and IV Digoxin. (2) Peripheral vascular disease: Code(s): I73.9 - Peripheral vascular disease, unspecified Status: Acute Assessment and Plan: On aspirin and Xarelto normally. Her regular fine arts model is Dr. Marcano at [place]. (3) Hypertension: Code(s): I10 - Essential (primary) hypertension Status: Acute Assessment and Plan: Stable. Monitor as HR is being controlled. (4) Dyslipidemia: Code(s): E78.5 - Hyperlipidemia, unspecified Status: Acute Assessment and Plan: On Pravastatin. Subjective Date/time seen: 11/19/23 08:12 Interval history: States feels weak. No chest pain or sob. Exam Const: General: cooperative, healthy appearing and comfortable Orientation/consciousness: oriented to person, oriented to place and oriented to time Resp: Auscultation: clear to auscultation bilaterally, no crackles, no rales, no rhonchi and no wheezes Cardio: Rate: regular rate Rhythm: abnormal rhythm Heart sounds: no murmurs Peripheral pulses: dorsalis pedis present Neuro: General: oriented to person, oriented to place and oriented to time Extrem: Right lower extremity: no edema Left lower extremity: no edema Objective Data Vital Signs Vital Signs: Vital Signs - 24 hr 11/18/23 08:14 11/18/23 08:25 11/18/23 10:11 Temperature Pulse Rate 112 H 103 H Respiratory Rate Blood Pressure 128/72 Pulse Oximetry 96 Oxygen Delivery Room Air Fraction of Inspired Oxygen 21 11/18/23 10:11 11/18/23 10:37 11/18/23 10:00 Temperature Pulse Rate 108 H 121 H Respiratory Rate Blood Pressure 128/72 128/72 Pulse Oximetry Oxygen Delivery Fraction of Inspired Oxygen 11/18/23 11:58 11/18/23 10:00 11/18/23 13:58 Temperature 97.9 F Pulse Rate 84 101 H 109 H Respiratory Rate 17 Blood Pressure 131/60 140/66 Pulse Oximetry 100 Oxygen Delivery Fraction of Inspired Oxygen 11/18/23 13:59 11/18/23 14:00 11/18/23 15:15 Temperature Pulse Rate 109 H 109 H 105 H Respiratory Rate 20 Blood Pressure 140/70 Pulse Oximetry Oxygen Delivery Fraction of Inspired Oxygen 11/18/23 15:15 11/18/23 16:05 11/18/23 16:15 Temperature 97.7 F Pulse Rate 105 H 115 H 115 H Respiratory Rate 17 Blood Pressure 141/56 H Pulse Oximetry 100 Oxygen Delivery Fraction of Inspired Oxygen 11/18/23 18:00 11/18/23 18:00 11/18/23 18:05 Temperature Pulse Rate 98 98 100 Respiratory Rate Blood Pressure 150/58 H 151/58 H Pulse Oximetry Oxygen Delivery Fraction of Inspired Oxygen 11/18/23 20:10 11/18/23 20:00 11/18/23 20:00 Temperature 97.6 F Pulse Rate 132 H 113 H 90 Respiratory Rate 16 Blood Pressure 129/62 Pulse Oximetry 98 Oxygen Delivery Fraction of Inspired Oxygen 11/18/23 20:19 11/18/23 20:20 11/18/23 20:00 Temperature Pulse Rate 105 H 111 H 106 H Respiratory Rate Blood Pressure Pulse Oximetry Oxygen Delivery Fraction of Inspired Oxygen 11/18/23 20:00 11/18/23 21:37 11/18/23 22:00 Temperature Pulse Rate 123 H 109 H Respiratory Rate Blood Pressure Pulse Oximetry Oxygen Delivery Room Air Fraction of Inspired Oxygen 11/18/23 22:00 11/18/23 22:00 11/18/23 23:58 Temperature 97.8 F 97.7 F Pulse Rate 101 H 103 H 114 H Respiratory Rate 20 18 Blood Pressure 139/75 134/72 Pulse Oximetry 97 99 Oxygen Delivery Fraction of Inspired Oxygen 11/19/23 00:00 11/19/23 00:00 11/19/23 00:00 Temperature Pulse Rate 123 H 120 H Respiratory Rate Blood Pressure Pulse Oximetry Oxygen Delivery Room Air Fraction of Inspired Oxygen 11/19/23 01:16 11/19/23 01:17 11/19/23 01:47 Temperature 98.2 F Pulse Rate 120 H 120 H 107 H Respiratory Rate 18 Blood Pressure 134/63 Pulse Oximetry 97 Oxygen Delivery Fraction of Inspired Oxygen 11/19/23 02:00 11/19/23 02:16 11/19/23 02:23 Temperature Pulse Rate 112 H 112 H 127 H Respiratory Rate Blood Pressure Pulse Oximetry Oxygen Delivery Fraction of Inspired Oxygen 11/19/23 04:00 11/19/23 04:00 11/19/23 06:00 Temperature 97.7 F Pulse Rate 107 H 111 H 123 H Respiratory Rate 20 Blood Pressure 141/64 H Pulse Oximetry 99 Oxygen Delivery Fraction of Inspired Oxygen 11/19/23 06:06 11/19/23 06:00 11/19/23 04:00 Temperature 98.2 F Pulse Rate 102 H 97 114 H Respiratory Rate 18 Blood Pressure 125/56 L Pulse Oximetry 100 Oxygen Delivery Fraction of Inspired Oxygen 11/19/23 04:00 11/19/23 06:00 Temperature Pulse Rate 94 Respiratory Rate Blood Pressure Pulse Oximetry Oxygen Delivery Room Air Fraction of Inspired Oxygen Intake/Output Intake/Output: Intake & Output 11/16/23 11/17/23 11/18/23 11/19/23 23:59 23:59 23:59 23:59 Intake Total 1100.0 480.7 726.6 1166.7 Balance 1100.0 480.7 726.6 1166.7 Meds/Results Medications: Active Medications Generic Name Dose Route Start Last Admin Trade Name Freq PRN Reason Stop Dose Admin Brimonidine Tartrate 1 drop 11/18/23 09:00 11/18/23 17:01 Brimonidine Tartrate 0.2% Op Soln 5 Ml Btl EACH EYE 1 drop BID RAHEEL Administration Brinzolamide 1 drop 11/18/23 09:00 11/18/23 17:00 Brinzolamide 1% Ophth Susp 10 Ml EACH EYE 1 drop BID RAHEEL Administration Carbidopa/Levodopa 1 tablet 11/24/23 22:00 Carbidopa/Levodopa 25/100 Mg Tablet PO Q8HR RAHEEL Carbidopa/Levodopa 1 tablet 11/17/23 22:00 11/19/23 06:04 Carbidopa/Levodopa 12.5/50 Mg Tablet PO 11/24/23 14:01 Not Given Q8HR RAHEEL Digoxin 125 mcg 11/17/23 20:25 11/18/23 20:10 Digoxin Inj 250 Mcg/Ml 2 Ml Amp (*Bkc) IV PUSH 125 mcg Q12HR RAHEEL Administration Diltiazem HCl 360 mg 11/19/23 09:00 Diltiazem Hcl Cd 180 Mg Cap.24hr PO QAM RAHEEL Donepezil HCl 5 mg 11/18/23 09:00 11/18/23 10:28 Donepezil Hcl 5 Mg Tablet PO Not Given QAM RAHEEL Diltiazem HCl 100 mg in 100 mls @ 20 mls/hr 11/16/23 20:55 11/19/23 06:06 Cardizem 100 Mg/100 Ml IV CONT 20 mg/hr .Q5H RAHEEL 20 mls/hr Administration 20 MG/HR Sodium Chloride 1,000 mls @ 75 mls/hr 11/18/23 11:20 11/19/23 00:58 Normal Saline Iv IV CONT 75 mls/hr .[id number] RAHEEL Administration Latanoprost 1 drop 11/16/23 21:00 11/18/23 20:01 Latanoprost 0.005% Op Soln 2.5 Ml Btl EACH EYE 1 drop HS RAHELE Administration Melatonin 5 mg 11/17/23 23:33 11/18/23 00:28 Melatonin 5 Mg Tablet PO 5 mg HS PRN Administration Sleep Metoprolol Tartrate 5 mg 11/17/23 16:46 11/19/23 02:23 Metoprolol Tartrate Inj 5 Mg/5 Ml Vial IV PUSH 5 mg Q2HR PRN Administration Tachycardia Ondansetron HCl 4 mg 11/16/23 15:04 11/17/23 13:42 Ondansetron Inj 4 Mg/2 Ml Vial IV PUSH 4 mg Q4H PRN Administration Nausea Pantoprazole Sodium 40 mg 11/17/23 21:00 11/18/23 20:10 Pantoprazole Sodium Iv 40 Mg Vial IV PUSH 40 mg Q12HR RAHEEL Administration Propranolol HCl 60 mg 11/18/23 18:00 11/19/23 06:04 Propranolol Hcl 60 Mg Capsule Cr PO Not Given Q12H [facility] Radiology Results: ITS Impressions Chest X-Ray 11/16/23 12:03 IMPRESSION: 1: NO ACUTE CARDIOPULMONARY DISEASE. Head CT 11/16/23 13:52 IMPRESSION: 1. . No acute intracranial abnormality. Chest/Abdomen/Pelvis CT 11/16/23 14:17 IMPRESSION: CHEST: 1. Bilateral basal atelectasis with minimal right pleural effusion. 2. Dilated esophagus with air-fluid level and food content. ABDOMEN/PELVIS: 1. No evidence of appendicitis, diverticulitis or intestinal obstruction. 2. Thickened wall of the stomach with Dilated esophagus. Further evaluation advised. 3. Possible hypodensity in the left kidney upper pole. Artifacts are seen in the area. 4. Impacted fecal material in the rectum. Labs Labs: Laboratory Results - last 24 hr 11/19/23 04:46 WBC 11.0 H RBC 4.32 Hgb 11.8 L Hct 37.9 MCV 87.7 MCH 27.3 MCHC 31.1 L RDW 21.0 H Plt Count 425 H MPV 8.7 Immature Gran % (Auto) 1.0 H Neut % (Auto) 78.9 H Lymph % (Auto) 9.0 L [place] % (Auto) 10.1 H Eos % (Auto) 0.6 Baso % (Auto) 0.4 Lymph # (Auto) 0.99 [place] # (Auto) 1.1 H Eos # (Auto) 0.1 Baso # (Auto) 0.0 Abs Immat Gran (auto) 0.11 H Absolute Neuts (auto) 8.7 H Absolute Nucleated RBC 0.000 Nucleated RBC % 0.0 Sodium 138 Potassium 4.0 Chloride 110 H Carbon Dioxide 15 L Anion Gap 13 H BUN 9 Creatinine 0.60 L Estim Creat Clear Calc 53 Estimated GFR > 60 Glucose 81 Lactic Acid 1.5 Calcium 8.7 Magnesium 2.1 Total Bilirubin 1.2 AST 25 ALT 13 Alkaline Phosphatase 94 Total Protein 8.0 Albumin 3.8
[2023-11-19] MEDS: PANTOPRAZOLE SODIUM IV 40 MG VIAL IV PUSH ×2 (09:33→20:30)
[2023-11-19] MEDS: BRIMONIDINE TARTRATE 0.2% OP SOLN 5 ML BTL 1 DROP EACH EYE ×2 (09:34→17:41)
[2023-11-19] MEDS: DIGOXIN INJ 250 MCG/ML 2 ML AMP (*BKC) 125 MCG IV PUSH ×2 (09:36→20:28)
[2023-11-19] MEDS: BRINZOLAMIDE 1% OPHTH SUSP 10 ML 1 DROP EACH EYE ×2 (09:36→17:41)
--- NOTE | 2023-11-19 13:03 | PC.NURSE ---
To GI Lab per robyn.
[2023-11-19] MEDS: LACTATED RINGERS 1,000 ML 150 ML IV CONT (13:38)
--- NOTE | 2023-11-19 13:48 | WPDANESEPPF ---
Anes - Initial Pre Proc Eval Procedure: Operation Date: 11/19/23 13:00 Proposed Procedures p Esophagogastroduodenoscopy - David Vargas MD Date/Time: 11/19/23 13:48 Surgeon: Armond Alford MD Pre Op Diagnosis: Nausea/Vomiting/Afib with RVR Patient Data Age: 83 Gender: F Height: 1.7 m Weight: 58.6 kg Last Vital Signs Temp 36.5 C 11/19/23 13:33 Pulse 110 H 11/19/23 13:33 Resp 21 H 11/19/23 13:33 BP 146/77 H 11/19/23 13:33 Pulse Ox 100 11/19/23 13:33 O2 Del Method Room Air 11/19/23 13:33 FiO2 21 11/18/23 08:25 Allergies Allergy/AdvReac Type Severity Reaction Status Date / Time Sulfa (Sulfonamide Allergy Itching Verified 02/05/19 21:38 Antibiotics) Home Medications Medication Instructions Recorded Confirmed Type multivitamin 1 tablet PO DAILY 02/05/19 11/16/23 History brinzolamide 1 %-brimonidine 0.2 % 1 drp ophthalmic (eye) BID #1 mL 02/19/19 11/16/23 Rx eye drops,suspension (Simbrinza) candesartan 32 1 tablet PO DAILY #30 tabs 02/19/19 11/16/23 Rx mg-hydrochlorothiazide 12.5 mg tablet diltiazem HCl 360 mg capsule,24 360 mg PO DAILY #30 caps 02/19/19 11/16/23 Rx hr,extended release latanoprost 0.005 % eye drops 1 drp ophthalmic (eye) HS #1 mL 02/19/19 11/16/23 Rx omeprazole magnesium 20 mg 20 mg PO DAILY #30 caps 02/19/19 11/16/23 Rx capsule,delayed release (Acid [employer] (omeprazole)) potassium chloride 20 mEq 20 meq PO DAILY@0800 #30 tabs 02/19/19 11/16/23 Rx tablet,extended release (K-Tab) pravastatin 20 mg tablet 20 mg PO HS #30 tabs 02/19/19 11/16/23 Rx propranolol 60 mg tablet 60 mg PO Q12H #60 tabs 02/19/19 11/16/23 Rx alendronate 70 mg tablet 70 mg PO WEEKLY 11/17/23 11/17/23 History aspirin 81 mg chewable tablet 81 mg PO QPM 11/17/23 11/17/23 History calcium 600 mg (as 1 tablet PO QPM 11/17/23 11/17/23 History carbonate)-vitamin D3 10 mcg (400 unit) tablet (Calcium with Vitamin D) cyanocobalamin (vitamin B-12) 1,000 mcg IM [id number] 11/17/23 11/17/23 History 1,000 mcg/mL injection solution docusate sodium 100 mg capsule 100 mg PO BID PRN Constipation 11/17/23 11/17/23 History gabapentin 100 mg capsule 100 mg PO TID 11/17/23 11/17/23 History iron,carbonyl 30 mg-vitamin C 10 1 tablet PO BID 11/17/23 11/17/23 History mg-FOS 25 mg chewable tablet light mineral oil 1 %-mineral oil 1 drp ophthalmic (eye) TID PRN Dry 11/17/23 11/17/23 History 4.5 % eye drops (Soothe XP) Eyes megestrol 625 mg/5 mL (125 mg/mL) 5 ml PO DAILY 11/17/23 11/17/23 History oral suspension rivaroxaban 20 mg tablet (Xarelto) 20 mg PO QPM 11/17/23 11/17/23 History sodium chloride 1,000 mg soluble 1,000 mg PO BID 11/17/23 11/17/23 History tablet timolol 0.5 % eye drops 1 drp EACH EYE DAILY 11/17/23 11/17/23 History urea 20 % topical cream 1 applic topical DAILY 11/17/23 11/17/23 History (Ureacin-20) Laboratory Tests 11/19/23 04:46 WBC 11.0 H K/mm3 (4.5-10.0) RBC 4.32 M/mm3 (4.2-5.4) Hgb 11.8 L g/dL (12.0-15.0) Hct 37.9 % (37.0-47.0) MCV 87.7 fl (80-100) MCH 27.3 pg (26-34) MCHC 31.1 L g/dl (32-36) RDW 21.0 H % (11.5-14.5) Plt Count 425 H k/mm3 (150-375) MPV 8.7 fl (7.4-10.4) Immature Gran % (Auto) 1.0 H % (0-0.5) Neut % (Auto) 78.9 H % (45.5-73.1) Lymph % (Auto) 9.0 L % (18.3-44.2) [place] % (Auto) 10.1 H % (2.6-8.5) Eos % (Auto) 0.6 % (0-4.4) Baso % (Auto) 0.4 % (0.2-1.2) Lymph # (Auto) 0.99 K/mm3 (0.9-3.2) [place] # (Auto) 1.1 H K/mm3 (0.1-0.6) Eos # (Auto) 0.1 K/mm3 (0-0.3) Baso # (Auto) 0.0 K/mm3 (0.0-0.1) Abs Immat Gran (auto) 0.11 H K/mm3 (0.00-0.031) Absolute Neuts (auto) 8.7 H K/mm3 (1.3-6.7) Absolute Nucleated RBC 0.000 K/mm3 (0.0-0.012) Nucleated RBC % 0.0 % (0.0-0.2) Sodium 138 mmol/L (137-145) Potassium 4.0 mmol/L (3.4-5.0) Chloride 110 H mmol/L (98-107) Carbon Dioxide 15 L mmol/L (22-30) Anion Gap 13 H mmol/L (4-12) BUN 9 mg/dL (7-17) Creatinine 0.60 L mg/dL (0.7-1.0) Estim Creat Clear Calc 53 ml/min Estimated GFR > 60 (59 - ) Glucose 81 mg/dL (65-110) Lactic Acid 1.5 mmol/L (0.7-2.0) Calcium 8.7 mg/dL (8.4-10.2) Magnesium 2.1 mg/dL (1.6-2.3) Total Bilirubin 1.2 mg/dL (0.2-1.3) AST 25 U/L (14-36) ALT 13 U/L (6-35) Alkaline Phosphatase 94 U/L (38-126) Total Protein 8.0 g/dL (6.3-8.2) Albumin 3.8 g/dL (3.5-5.1) Patient hx anesthesia problems: none Family hx anesthesia problems: none Results Review: All pre-operative results and documents have been reviewed as part of the pre-operative evaluation. [facility] Past Medical History Medical History Atrial fibrillation Chronic anticoagulation Dementia Dyslipidemia Glaucoma Hypertension Nausea and vomiting in adult Parkinsonian syndrome Patient has tremors of the arms and jaw but has not had a diagnosis of Parkinson's. Parkinsons disease Peripheral vascular disease Surgical History Surgical History History of angioplasty of peripheral vessel Bilateral lower extremity angioplasty and stents. History of cardiac catheterization History of carotid endarterectomy History of cataract extraction History of cholecystectomy History of lumbar laminectomy Family History Family History Father Acute myocardial infarction Cerebrovascular accident Other Hypertension Social History Social History Social History: Healthcare power of employee benefits attorney: Jaime Meier, son ([phone]). Code status: Full code. Smoking packs per day: 0.5 Smoking cigarettes per day: 10.0 Years smoked: 20 Smoking pack-years: 10.00 Smoking status: Former smoker Tobacco type: cigarettes Second hand tobacco smoke exposure: Yes Alcohol intake: former Substance use: never Do You Feel Safe in your Home?: Yes Lack of Transportation: No Lack of Food: Never True Current Housing: I Have Housing Concerned About Future Housing: No Difficulty Paying Gas/Electric Bills: No Difficulty Paying for Meds: No Currently Unemployed: No Education: High School Diploma/GED Difficulty w/ Childcare or Family Care: No Spiritual care concerns: No Agree to blood products: Yes Anes - Eval Final PreProcedure Day of Procedure 11/19/23 13:48 Patient weight: thin Heart: irregular rhythm (a-fib RVR) and other Lungs: clear to auscultation Airway: Mallampati scale class II Neurological: lethargic and confused Last oral intake: >/= 8 hours ASA classification: IV Emergent: no Anesthetic plan: proceed Anesthesia type and monitoring: general GIVS and ETT Results Review: All pre-operative results and documents have been reviewed as part of the pre-operative evaluation. Informed Consent: The patient's anesthetic plan and its attendant risks and benefits were discussed with the patient/family/POA. Questions were solicited and answers provided to the satisfaction of the patient/family/POA.
--- NOTE | 2023-11-19 14:50 | PM.IMPN ---
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(s): Z79.01 - snf (current) use of anticoagulants Status: Acute (8) Peripheral vascular disease: Code(s): I73.9 - Peripheral vascular disease, unspecified Status: Acute (9) Confusion: Code(s): R41.0 - Disorientation, unspecified Status: Acute Plan For EGD today Continue Cardizem infusion, restart home Cardizem 360 mg daily and Propranolol Titrate home meds with clinical course Cardiology and GI following Neurology evaluated agrees with Parkinson's disease DVT prophylaxis hold anticoagulation until after EGD Dietitian consulted Subjective Date/time seen: 11/19/23 14:50 Interval history: comfortable at bedside, going for EGD today Review of Systems Review of Systems: 12 systems were reviewed and are negative except for as per HPI. Exam Narrative: General: Chronically ill, frail elderly female in the semi-Salvador position in bed. Weight: 57.4 kg. BMI: 19.8. HEENT: PERRL, EOMI. Sclera anicteric. Tacky mucous membranes. Neck: Supple. No JVD. Respiratory: Respirations are nonlabored. Lungs are clear a little coarse at the bases but otherwise clear to auscultation. Cardiovascular: Irregularly irregular rate and rhythm. Gastrointestinal: Abdomen is soft, nontender, and nondistended with positive bowel sounds. Occasional belching. Skin: Warm and dry. Feet are cool. Chronic hyperpigmentation of both lower legs consistent with vascular disease. There are scattered ulcerated areas on the toes on both feet. There is an irregularly-shaped ulcer on the left anterior king with pink wound bed and scattered sloughing without evidence of nonviable tissue. A similar smaller ulcer is noted on the right anterior king. Extremities: No cyanosis or clubbing. Chronic [place] edema of the lower legs. Neurological: Alert and oriented x2. Cranial nerves 2-12 are grossly intact. Speech is clear. Generalized weakness without obvious focal deficits. Psychiatric: Pleasantly confused and cooperative. Appropriate mood and flat affect. Repetitive. Objective Data Vital Signs Vital Signs: Vital Signs - 24 hr 11/18/23 15:15 11/18/23 15:15 11/18/23 16:05 Temperature 97.7 F Pulse Rate 105 H 105 H 115 H Respiratory Rate 17 Blood Pressure 141/56 H Pulse Oximetry 100 Oxygen Delivery Oxygen Flow Rate 11/18/23 16:15 11/18/23 18:00 11/18/23 18:00 Temperature Pulse Rate 115 H 98 98 Respiratory Rate Blood Pressure 150/58 H Pulse Oximetry Oxygen Delivery Oxygen Flow Rate 11/18/23 18:05 11/18/23 20:10 11/18/23 20:00 Temperature Pulse Rate 100 132 H 113 H Respiratory Rate Blood Pressure 151/58 H Pulse Oximetry Oxygen Delivery Oxygen Flow Rate 11/18/23 20:00 11/18/23 20:19 11/18/23 20:20 Temperature 97.6 F Pulse Rate 90 105 H 111 H Respiratory Rate 16 Blood Pressure 129/62 Pulse Oximetry 98 Oxygen Delivery Oxygen Flow Rate 11/18/23 20:00 11/18/23 20:00 11/18/23 21:37 Temperature Pulse Rate 106 H 123 H Respiratory Rate Blood Pressure Pulse Oximetry Oxygen Delivery Room Air Oxygen Flow Rate 11/18/23 22:00 11/18/23 22:00 11/18/23 22:00 Temperature 97.8 F Pulse Rate 109 H 101 H 103 H Respiratory Rate 20 Blood Pressure 139/75 Pulse Oximetry 97 Oxygen Delivery Oxygen Flow Rate 11/18/23 23:58 11/19/23 00:00 11/19/23 00:00 Temperature 97.7 F Pulse Rate 114 H 123 H 120 H Respiratory Rate 18 Blood Pressure 134/72 Pulse Oximetry 99 Oxygen Delivery Oxygen Flow Rate 11/19/23 00:00 11/19/23 01:16 11/19/23 01:17 Temperature Pulse Rate 120 H 120 H Respiratory Rate Blood Pressure Pulse Oximetry Oxygen Delivery Room Air Oxygen Flow Rate 11/19/23 01:47 11/19/23 02:00 11/19/23 02:16 Temperature 98.2 F Pulse Rate 107 H 112 H 112 H Respiratory Rate 18 Blood Pressure 134/63 Pulse Oximetry 97 Oxygen Delivery Oxygen Flow Rate 11/19/23 02:23 11/19/23 04:00 11/19/23 04:00 Temperature 97.7 F Pulse Rate 127 H 107 H 111 H Respiratory Rate 20 Blood Pressure 141/64 H Pulse Oximetry 99 Oxygen Delivery Oxygen Flow Rate 11/19/23 06:00 11/19/23 06:06 11/19/23 06:00 Temperature 98.2 F Pulse Rate 123 H 102 H 97 Respiratory Rate 18 Blood Pressure 125/56 L Pulse Oximetry 100 Oxygen Delivery Oxygen Flow Rate 11/19/23 04:00 11/19/23 04:00 11/19/23 06:00 Temperature Pulse Rate 114 H 94 Respiratory Rate Blood Pressure Pulse Oximetry Oxygen Delivery Room Air Oxygen Flow Rate 11/19/23 08:38 11/19/23 09:36 11/19/23 10:40 Temperature 97.3 F L Pulse Rate 92 99 114 H Respiratory Rate 18 Blood Pressure 142/76 H Pulse Oximetry 97 Oxygen Delivery Oxygen Flow Rate 11/19/23 10:40 11/19/23 10:00 11/19/23 11:51 Temperature 97.8 F Pulse Rate 114 H 99 81 Respiratory Rate 18 Blood Pressure 135/67 147/67 H Pulse Oximetry 100 Oxygen Delivery Oxygen Flow Rate 11/19/23 08:00 11/19/23 10:00 11/19/23 12:00 Temperature Pulse Rate 95 84 113 H Respiratory Rate Blood Pressure Pulse Oximetry Oxygen Delivery Oxygen Flow Rate 11/19/23 08:00 11/19/23 12:00 11/19/23 13:33 Temperature 97.7 F Pulse Rate 110 H Respiratory Rate 21 H Blood Pressure 146/77 H Pulse Oximetry 100 Oxygen Delivery Room Air Room Air Room Air Oxygen Flow Rate 11/19/23 12:00 11/19/23 14:18 11/19/23 14:28 Temperature 97.5 F L 97.2 F L Pulse Rate 110 H 120 H 123 H Respiratory Rate 25 H 32 H Blood Pressure 146/77 H 107/50 L 138/98 H Pulse Oximetry 100 100 Oxygen Delivery Simple Face Mask Simple Face Mask Oxygen Flow Rate 8 8 11/19/23 14:38 11/19/23 14:48 Temperature 97 F L 97 F L Pulse Rate 124 H 133 H Respiratory Rate 24 H 26 H Blood Pressure 130/66 108/67 Pulse Oximetry 95 94 Oxygen Delivery Room Air Room Air Oxygen Flow Rate Intake/Output Intake/Output: Intake & Output 11/16/23 11/17/23 11/18/23 11/19/23 23:59 23:59 23:59 23:59 Intake Total 1100.0 480.7 726.6 1384.7 Balance 1100.0 480.7 726.6 1384.7 Meds/Results Medications: Active Medications Generic Name Dose Route Start Last Admin Trade Name Freq PRN Reason Stop Dose Admin Brimonidine Tartrate 1 drop 11/18/23 09:00 11/19/23 09:34 Brimonidine Tartrate 0.2% Op Soln 5 Ml Btl EACH EYE 1 drop BID RAHEEL Administration Brinzolamide 1 drop 11/18/23 09:00 11/19/23 09:36 Brinzolamide 1% Ophth Susp 10 Ml EACH EYE 1 drop BID RAHEEL Administration Carbidopa/Levodopa 1 tablet 11/24/23 22:00 Carbidopa/Levodopa 25/100 Mg Tablet PO Q8HR RAHEEL Carbidopa/Levodopa 1 tablet 11/17/23 22:00 11/19/23 06:04 Carbidopa/Levodopa 12.5/50 Mg Tablet PO 11/24/23 14:01 Not Given Q8HR RAHEEL Digoxin 125 mcg 11/17/23 20:25 11/19/23 09:36 Digoxin Inj 250 Mcg/Ml 2 Ml Amp (*Bkc) IV PUSH 125 mcg Q12HR RAHEEL Administration Diltiazem HCl 360 mg 11/19/23 09:00 11/19/23 09:39 Diltiazem Hcl Cd 180 Mg Cap.24hr PO Not Given QAM RAHEEL Donepezil HCl 5 mg 11/18/23 09:00 11/19/23 09:39 Donepezil Hcl 5 Mg Tablet PO Not Given QAM RAHEEL Diltiazem HCl 100 mg in 100 mls @ 20 mls/hr 11/16/23 20:55 11/19/23 12:00 Cardizem 100 Mg/100 Ml IV CONT 20 mg/hr .Q5H RAHEEL 20 mls/hr Infusion 20 MG/HR Sodium Chloride 1,000 mls @ 75 mls/hr 11/18/23 11:20 11/19/23 00:58 Normal Saline Iv IV CONT 75 mls/hr .[id number] RAHEEL Administration Lactated Ringer's 1,000 mls @ 150 mls/hr 11/19/23 13:35 11/19/23 14:18 Lr - Lactated Ringers Iv IV CONT 150 mls/hr .[id number] RAHEEL Infusion Latanoprost 1 drop 11/16/23 21:00 11/18/23 20:01 Latanoprost 0.005% Op Soln 2.5 Ml Btl EACH EYE 1 drop HS RAHEEL Administration Melatonin 5 mg 11/17/23 23:33 11/18/23 00:28 Melatonin 5 Mg Tablet PO 5 mg HS PRN Administration Sleep Metoprolol Tartrate 5 mg 11/17/23 16:46 11/19/23 02:23 Metoprolol Tartrate Inj 5 Mg/5 Ml Vial IV PUSH 5 mg Q2HR PRN Administration Tachycardia Ondansetron HCl 4 mg 11/16/23 15:04 11/17/23 13:42 Ondansetron Inj 4 Mg/2 Ml Vial IV PUSH 4 mg Q4H PRN Administration Nausea Pantoprazole Sodium 40 mg 11/17/23 21:00 11/19/23 09:33 Pantoprazole Sodium Iv 40 Mg Vial IV PUSH 40 mg Q12HR RAHEEL Administration Propranolol HCl 60 mg 11/18/23 18:00 11/19/23 06:04 Propranolol Hcl 60 Mg Capsule Cr PO Not Given Q12H [facility] Radiology Results: ITS Impressions Chest X-Ray 11/16/23 12:03 IMPRESSION: 1: NO ACUTE CARDIOPULMONARY DISEASE. Head CT 11/16/23 13:52 IMPRESSION: 1. . No acute intracranial abnormality. Chest/Abdomen/Pelvis CT 11/16/23 14:17 IMPRESSION: CHEST: 1. Bilateral basal atelectasis with minimal right pleural effusion. 2. Dilated esophagus with air-fluid level and food content. ABDOMEN/PELVIS: 1. No evidence of appendicitis, diverticulitis or intestinal obstruction. 2. Thickened wall of the stomach with Dilated esophagus. Further evaluation advised. 3. Possible hypodensity in the left kidney upper pole. Artifacts are seen in the area. 4. Impacted fecal material in the rectum. Labs Labs: Laboratory Results - last 24 hr 11/19/23 04:46 WBC 11.0 H RBC 4.32 Hgb 11.8 L Hct 37.9 MCV 87.7 MCH 27.3 MCHC 31.1 L RDW 21.0 H Plt Count 425 H MPV 8.7 Immature Gran % (Auto) 1.0 H Neut % (Auto) 78.9 H Lymph % (Auto) 9.0 L [place] % (Auto) 10.1 H Eos % (Auto) 0.6 Baso % (Auto) 0.4 Lymph # (Auto) 0.99 [place] # (Auto) 1.1 H Eos # (Auto) 0.1 Baso # (Auto) 0.0 Abs Immat Gran (auto) 0.11 H Absolute Neuts (auto) 8.7 H Absolute Nucleated RBC 0.000 Nucleated RBC % 0.0 Sodium 138 Potassium 4.0 Chloride 110 H Carbon Dioxide 15 L Anion Gap 13 H BUN 9 Creatinine 0.60 L Estim Creat Clear Calc 53 Estimated GFR > 60 Glucose 81 Lactic Acid 1.5 Calcium 8.7 Magnesium 2.1 Total Bilirubin 1.2 AST 25 ALT 13 Alkaline Phosphatase 94 Total Protein 8.0 Albumin 3.8 Quality VTE Prophylaxis VTE prophylaxis: mechanical ordered
--- NOTE | 2023-11-19 15:16 | PC.NURSE ---
Pt returned to floor.
[2023-11-19] MEDS: DOCUSATE SODIUM 400 MG/400 ML ENEMA RECTAL (17:41)
[2023-11-19] MEDS: LATANOPROST 0.005% OP SOLN 2.5 ML BTL 1 DROP EACH EYE (20:12)
[2023-11-19] MEDS: ENOXAPARIN 60 MG/0.6 ML SYRINGE 58.6 MG SUB-Q (20:28)
[2023-11-20] VITALS (22 sets, daily range): BP systolic 112–150; BP diastolic 51–73; PULSE 68–127; RESP 18–24; TEMP 36.4–36.9; O2SAT 96–100
[2023-11-20] MEDS: dilTIAZem 100 MG/100 ML 100 MG/100 ML BAG 20 MG IV CONT ×2 (01:27→06:05)
[2023-11-20] MEDS: SODIUM CHLORIDE 0.9% IV 1,000 ML 75 ML IV CONT ×2 (05:33→17:32)
[2023-11-20 05:35] LABS: Basophils Percent Auto 0.2 % (0.2-1.2); Eosinophils Absolute Auto 0.1 K/mm3 (0-0.3); Eosinophils Percent Auto 0.6 % (0-4.4); Hematocrit 36.8 % (37.0-47.0); Hemoglobin 11.2 g/dL (12.0-15.0); Immature Granulocyte Absolute 0.11 K/mm3 (0.00-0.031); Immature Granulocyte Percent A 0.9 % (0-0.5); Lymphocytes Absolute Auto 1.06 K/mm3 (0.9-3.2); Lymphocytes Percent Auto 8.7 % (18.3-44.2); Mean Corpuscular HGB Conc 30.4 g/dl (32-36); Mean Corpuscular Hemoglobin 26.9 pg (26-34); Mean Corpuscular Volume 88.2 fl (80-100); Mean Platelet Volume 9.2 fl (7.4-10.4); Monocytes Absolute Auto 1.1 K/mm3 (0.1-0.6); Monocytes Percent Auto 8.8 % (2.6-8.5); Neutrophils Absolute Auto 9.9 K/mm3 (1.3-6.7); Neutrophils Percent Auto 80.8 % (45.5-73.1); Platelet Count Result 394 k/mm3 (150-375); Red Blood Count 4.17 M/mm3 (4.2-5.4); Red Cell Distribution Width 20.7 % (11.5-14.5); White Blood Count 12.2 K/mm3 (4.5-10.0)
[2023-11-20 05:53] LABS: Alanine Aminotransferase 12 U/L (6-35); Albumin Level 3.2 g/dL (3.5-5.1); Alkaline Phosphatase 88 U/L (38-126); Anion Gap 14 mmol/L (4-12); Aspartate Amino Transferase 23 U/L (14-36); Bilirubin,Total 1.3 mg/dL (0.2-1.3); Blood Urea Nitrogen 8 mg/dL (7-17); Calcium 8.2 mg/dL (8.4-10.2); Carbon Dioxide 13 mmol/L (22-30); Chloride 111 mmol/L (98-107); Estimated CRCL calculation 52 ml/min; Estimated Glomerular Filt Rate > 60; Glucose 73 mg/dL (65-110); Potassium 3.4 mmol/L (3.4-5.0); Sodium 138 mmol/L (137-145)
--- NOTE | 2023-11-20 07:52 | PM.PNCARD ---
Progress Note: A&P Assessment and Plan (1) Atrial fibrillation: Code(s): I48.91 - Unspecified atrial fibrillation Status: Acute Assessment and Plan: Chronic. HR fairly well controlled. [id number] 5. On Xarelto which is on hold since cannot take PO. On Diltiazem drip 20 mg/hr and Digoxin 125 mcg IV BID and on Metoprolol tartate 5 mg IV every 2 hours prn for tachycardia with parameters. If OK with GI to go back on PO meds, would resume Xarelto, PO Diltiazem PO. And start Metoprolol. (2) Peripheral vascular disease: Code(s): I73.9 - Peripheral vascular disease, unspecified Status: Acute Assessment and Plan: On aspirin and Xarelto normally. Her regular tree doctor is Dr. Marcano at [place]. (3) Hypertension: Code(s): I10 - Essential (primary) hypertension Status: Acute Assessment and Plan: Stable. Monitor as HR is being controlled. (4) Dyslipidemia: Code(s): E78.5 - Hyperlipidemia, unspecified Status: Acute Assessment and Plan: On Pravastatin. Subjective Date/time seen: 11/20/23 07:52 Interval history: States feels weak. No chest pain or sob. Exam Const: General: cooperative, healthy appearing and comfortable Orientation/consciousness: oriented to person, oriented to place and oriented to time Resp: Auscultation: clear to auscultation bilaterally, no crackles, no rales, no rhonchi and no wheezes Cardio: Rate: tachycardic Rhythm: abnormal rhythm Heart sounds: no murmurs Peripheral pulses: dorsalis pedis present Neuro: General: oriented to person, oriented to place and oriented to time Extrem: Right lower extremity: no edema Left lower extremity: no edema Objective Data Vital Signs Vital Signs: Vital Signs - 24 hr 11/19/23 08:38 11/19/23 09:36 11/19/23 10:40 Temperature 97.3 F L Pulse Rate 92 99 114 H Respiratory Rate 18 Blood Pressure 142/76 H Pulse Oximetry 97 Oxygen Delivery Oxygen Flow Rate 11/19/23 10:40 11/19/23 10:00 11/19/23 11:51 Temperature 97.8 F Pulse Rate 114 H 99 81 Respiratory Rate 18 Blood Pressure 135/67 147/67 H Pulse Oximetry 100 Oxygen Delivery Oxygen Flow Rate 11/19/23 08:00 11/19/23 10:00 11/19/23 12:00 Temperature Pulse Rate 95 84 113 H Respiratory Rate Blood Pressure Pulse Oximetry Oxygen Delivery Oxygen Flow Rate 11/19/23 08:00 11/19/23 12:00 11/19/23 13:33 Temperature 97.7 F Pulse Rate 110 H Respiratory Rate 21 H Blood Pressure 146/77 H Pulse Oximetry 100 Oxygen Delivery Room Air Room Air Room Air Oxygen Flow Rate 11/19/23 12:00 11/19/23 14:18 11/19/23 14:28 Temperature 97.5 F L 97.2 F L Pulse Rate 110 H 120 H 123 H Respiratory Rate 25 H 32 H Blood Pressure 146/77 H 107/50 L 138/98 H Pulse Oximetry 100 100 Oxygen Delivery Simple Face Mask Simple Face Mask Oxygen Flow Rate 8 8 11/19/23 14:38 11/19/23 14:48 11/19/23 14:58 Temperature 97 F L 97 F L 97 F L Pulse Rate 124 H 133 H 125 H Respiratory Rate 24 H 26 H 24 H Blood Pressure 130/66 108/67 125/68 Pulse Oximetry 95 94 96 Oxygen Delivery Room Air Room Air Room Air Oxygen Flow Rate 11/19/23 15:08 11/19/23 15:40 11/19/23 16:03 Temperature 97.2 F L Pulse Rate 104 H 115 H 115 H Respiratory Rate 25 H Blood Pressure 129/93 H 129/93 H 129/93 H Pulse Oximetry 96 Oxygen Delivery Room Air Oxygen Flow Rate 11/19/23 16:18 11/19/23 17:40 11/19/23 18:00 Temperature 97.2 F L 97.2 F L Pulse Rate 111 H 119 H 93 Respiratory Rate 18 18 Blood Pressure 137/96 H 130/76 Pulse Oximetry 100 99 Oxygen Delivery Oxygen Flow Rate 11/19/23 16:00 11/19/23 18:00 11/19/23 16:00 Temperature Pulse Rate 113 H 90 Respiratory Rate Blood Pressure Pulse Oximetry Oxygen Delivery Room Air Oxygen Flow Rate 11/19/23 20:00 11/19/23 20:00 11/19/23 20:28 Temperature 97.7 F Pulse Rate 110 H 104 H 112 H Respiratory Rate 18 Blood Pressure 124/56 L Pulse Oximetry 100 Oxygen Delivery Oxygen Flow Rate 11/19/23 20:38 11/19/23 20:39 11/19/23 22:00 Temperature Pulse Rate 112 H 112 H Respiratory Rate Blood Pressure 143/59 H Pulse Oximetry Oxygen Delivery Oxygen Flow Rate 11/19/23 22:00 11/19/23 20:00 11/19/23 20:00 Temperature Pulse Rate 82 119 H Respiratory Rate Blood Pressure Pulse Oximetry Oxygen Delivery Room Air Oxygen Flow Rate 11/19/23 22:00 11/19/23 23:52 11/20/23 00:00 Temperature 97.6 F Pulse Rate 79 105 H 105 H Respiratory Rate 18 Blood Pressure 133/87 Pulse Oximetry 96 Oxygen Delivery Oxygen Flow Rate 11/20/23 00:00 11/20/23 00:00 11/20/23 01:26 Temperature Pulse Rate 102 H 104 H Respiratory Rate Blood Pressure Pulse Oximetry Oxygen Delivery Room Air Oxygen Flow Rate 11/20/23 01:27 11/20/23 04:24 11/20/23 02:00 Temperature 97.8 F Pulse Rate 104 H 124 H 107 H Respiratory Rate 18 Blood Pressure 139/71 Pulse Oximetry 99 Oxygen Delivery Oxygen Flow Rate 11/20/23 02:00 11/20/23 04:00 11/20/23 04:00 Temperature Pulse Rate 111 H 127 H 117 H Respiratory Rate Blood Pressure Pulse Oximetry Oxygen Delivery Oxygen Flow Rate 11/20/23 04:00 11/20/23 06:00 11/20/23 06:04 Temperature Pulse Rate 104 H 104 H Respiratory Rate Blood Pressure Pulse Oximetry Oxygen Delivery Room Air Oxygen Flow Rate 11/20/23 06:05 11/20/23 06:05 11/20/23 06:00 Temperature Pulse Rate 101 H 113 H Respiratory Rate Blood Pressure 148/57 H Pulse Oximetry Oxygen Delivery Oxygen Flow Rate Intake/Output Intake/Output: Intake & Output 11/17/23 11/18/23 11/19/23 11/20/23 23:59 23:59 23:59 23:59 Intake Total 480.7 726.6 2885.3 1172.7 Balance 480.7 726.6 2885.3 1172.7 Meds/Results Medications: Active Medications Generic Name Dose Route Start Last Admin Trade Name Freq PRN Reason Stop Dose Admin Aspirin 81 mg 11/20/23 09:00 Aspirin 81 Mg Enteric Tablet PO QAM RAHEEL Brimonidine Tartrate 1 drop 11/18/23 09:00 11/19/23 17:41 Brimonidine Tartrate 0.2% Op Soln 5 Ml Btl EACH EYE 1 drop BID RAHEEL Administration Brinzolamide 1 drop 11/18/23 09:00 11/19/23 17:41 Brinzolamide 1% Ophth Susp 10 Ml EACH EYE 1 drop BID RAHEEL Administration Carbidopa/Levodopa 1 tablet 11/24/23 22:00 Carbidopa/Levodopa 25/100 Mg Tablet PO Q8HR RAHEEL Carbidopa/Levodopa 1 tablet 11/17/23 22:00 11/20/23 04:57 Carbidopa/Levodopa 12.5/50 Mg Tablet PO 11/24/23 14:01 Not Given Q8HR RAHEEL Digoxin 125 mcg 11/19/23 21:00 11/19/23 20:28 Digoxin Inj 250 Mcg/Ml 2 Ml Amp (*Bkc) IV PUSH 125 mcg Q12HR RAHEEL Administration Diltiazem HCl 360 mg 11/19/23 09:00 11/19/23 09:39 Diltiazem Hcl Cd 180 Mg Cap.24hr PO Not Given QAM RAHEEL Donepezil HCl 5 mg 11/18/23 09:00 11/19/23 09:39 Donepezil Hcl 5 Mg Tablet PO Not Given QAM RAHEEL Sodium Chloride 1,000 mls @ 75 mls/hr 11/18/23 11:20 11/20/23 05:33 Normal Saline Iv IV CONT 75 mls/hr .[id number] RAHEEL Administration Diltiazem HCl 100 mg in 100 mls @ 20 mls/hr 11/19/23 19:29 11/20/23 06:05 Cardizem 100 Mg/100 Ml IV CONT 20 mg/hr .Q5H RAHEEL 20 mls/hr Administration 20 MG/HR Latanoprost 1 drop 11/16/23 21:00 11/19/23 20:12 Latanoprost 0.005% Op Soln 2.5 Ml Btl EACH EYE 1 drop HS RAHEEL Administration Melatonin 5 mg 11/17/23 23:33 11/18/23 00:28 Melatonin 5 Mg Tablet PO 5 mg HS PRN Administration Sleep Metoprolol Tartrate 5 mg 11/17/23 16:46 11/19/23 17:40 Metoprolol Tartrate Inj 5 Mg/5 Ml Vial IV PUSH 5 mg Q2HR PRN Administration Tachycardia Metoprolol Tartrate 100 mg 11/19/23 21:00 11/19/23 20:13 Metoprolol Tartrate 50 Mg Tab PO Not Given Q12HR [facility] Ondansetron HCl 4 mg 11/16/23 15:04 11/17/23 13:42 Ondansetron Inj 4 Mg/2 Ml Vial IV PUSH 4 mg Q4H PRN Administration Nausea Pantoprazole Sodium 40 mg 11/17/23 21:00 11/19/23 20:30 Pantoprazole Sodium Iv 40 Mg Vial IV PUSH 40 mg Q12HR [facility] Administration Pravastatin Sodium 20 mg 11/19/23 21:00 11/19/23 20:13 Pravastatin Sodium 20 Mg Tablet PO Not Given QHS RAHEEL Rivaroxaban 20 mg 11/19/23 17:00 11/19/23 17:41 Rivaroxaban 20 Mg Tablet PO Not Given DAILY@1700 RAHEEL Radiology Results: ITS Impressions Chest X-Ray 11/16/23 12:03 IMPRESSION: 1: NO ACUTE CARDIOPULMONARY DISEASE. Head CT 11/16/23 13:52 IMPRESSION: 1. . No acute intracranial abnormality. Chest/Abdomen/Pelvis CT 11/16/23 14:17 IMPRESSION: CHEST: 1. Bilateral basal atelectasis with minimal right pleural effusion. 2. Dilated esophagus with air-fluid level and food content. ABDOMEN/PELVIS: 1. No evidence of appendicitis, diverticulitis or intestinal obstruction. 2. Thickened wall of the stomach with Dilated esophagus. Further evaluation advised. 3. Possible hypodensity in the left kidney upper pole. Artifacts are seen in the area. 4. Impacted fecal material in the rectum. Labs Labs: Laboratory Results - last 24 hr 11/20/23 05:04 WBC 12.2 H RBC 4.17 L Hgb 11.2 L Hct 36.8 L MCV 88.2 MCH 26.9 MCHC 30.4 L RDW 20.7 H Plt Count 394 H MPV 9.2 Immature Gran % (Auto) 0.9 H Neut % (Auto) 80.8 H Lymph % (Auto) 8.7 L [place] % (Auto) 8.8 H Eos % (Auto) 0.6 Baso % (Auto) 0.2 Lymph # (Auto) 1.06 [place] # (Auto) 1.1 H Eos # (Auto) 0.1 Baso # (Auto) 0.0 Abs Immat Gran (auto) 0.11 H Absolute Neuts (auto) 9.9 H Absolute Nucleated RBC 0.000 Nucleated RBC % 0.0 Sodium 138 Potassium 3.4 Chloride 111 H Carbon Dioxide 13 L Anion Gap 14 H BUN 8 Creatinine 0.60 L Estim Creat Clear Calc 52 Estimated GFR > 60 Glucose 73 Calcium 8.2 L Magnesium 2.0 Total Bilirubin 1.3 AST 23 ALT 12 Alkaline Phosphatase 88 Total Protein 7.0 Albumin 3.2 L
[2023-11-20] MEDS: PANTOPRAZOLE SODIUM IV 40 MG VIAL IV PUSH ×2 (08:12→21:21)
[2023-11-20] MEDS: DIGOXIN INJ 250 MCG/ML 2 ML AMP (*BKC) 125 MCG IV PUSH (08:13)
[2023-11-20] MEDS: BRINZOLAMIDE 1% OPHTH SUSP 10 ML 1 DROP EACH EYE ×2 (08:15→17:32)
[2023-11-20] MEDS: BRIMONIDINE TARTRATE 0.2% OP SOLN 5 ML BTL 1 DROP EACH EYE ×2 (08:16→17:32)
--- NOTE | 2023-11-20 09:33 | PCSTNOTE ---
Please refer to the Bedside Swallow Evaluation in the EMR. Please note, silent aspiration cannot be ruled out at bedside.
[2023-11-20] MEDS: ASPIRIN 81 MG ENTERIC TABLET PO (09:46)
[2023-11-20] MEDS: METOPROLOL TARTRATE 50 MG TAB 100 MG PO ×2 (09:49→21:19)
[2023-11-20] MEDS: DONEPEZIL HCL 5 MG TABLET PO (09:51)
[2023-11-20] MEDS: dilTIAZem HCL CD 180 MG CAP.24HR 360 MG PO (09:52)
[2023-11-20] MEDS: droNABinol (*CRX) 2.5 MG CAPSULE 5 MG PO ×2 (12:11→17:32)
--- NOTE | 2023-11-20 12:11 | WPDGIPROGNO ---
Progress Note: A&P Assessment and Plan (1) Dysphagia: Code(s): R13.10 - Dysphagia, unspecified Status: Acute Plan The patient reports intermittent difficulty swallowing, primarily with solid foods. She does not experience significant issues with liquids. A CT scan revealed air-fluid levels in the esophagus, which likely indicate esophageal dysmotility. Possible causes include achalasia or a nonspecific motility disorder related to her underlying Parkinson's disease. Given her advanced age, dementia, Parkinson's disease, and the challenges associated with esophageal manometry, we may defer this procedure for now. However, if her swallowing difficulties worsen, we may consider manometry in the future to confirm the specific diagnosis Time Spent With Patient Time with patient: 15 - 25 minutes Subjective Date/time seen: 11/20/23 12:11 Interval history: The patient looks much more awake than yesterday during the procedure. Upon further questioning, she states she did not have any difficulty swallowing liquids and occasional dysphagia to solids. She denies abdominal pain, nausea vomiting or regurgitation. Exam Const: Other: Physical exam unchanged from previous. We offered her a sip of water with a straw on a sitting position, and she was able to swallow with no apparent difficulties. Objective Data Vital Signs Vital Signs: Vital Signs - 24 hr 11/19/23 13:33 11/19/23 14:18 11/19/23 14:28 Temperature 97.7 F 97.5 F L 97.2 F L Pulse Rate 110 H 120 H 123 H Respiratory Rate 21 H 25 H 32 H Blood Pressure 146/77 H 107/50 L 138/98 H Pulse Oximetry 100 100 100 Oxygen Delivery Room Air Simple Face Mask Simple Face Mask Oxygen Flow Rate 8 8 11/19/23 14:38 11/19/23 14:48 11/19/23 14:58 Temperature 97 F L 97 F L 97 F L Pulse Rate 124 H 133 H 125 H Respiratory Rate 24 H 26 H 24 H Blood Pressure 130/66 108/67 125/68 Pulse Oximetry 95 94 96 Oxygen Delivery Room Air Room Air Room Air Oxygen Flow Rate 11/19/23 15:08 11/19/23 15:40 11/19/23 16:03 Temperature 97.2 F L Pulse Rate 104 H 115 H 115 H Respiratory Rate 25 H Blood Pressure 129/93 H 129/93 H 129/93 H Pulse Oximetry 96 Oxygen Delivery Room Air Oxygen Flow Rate 11/19/23 16:18 11/19/23 17:40 11/19/23 18:00 Temperature 97.2 F L 97.2 F L Pulse Rate 111 H 119 H 93 Respiratory Rate 18 18 Blood Pressure 137/96 H 130/76 Pulse Oximetry 100 99 Oxygen Delivery Oxygen Flow Rate 11/19/23 16:00 11/19/23 18:00 11/19/23 16:00 Temperature Pulse Rate 113 H 90 Respiratory Rate Blood Pressure Pulse Oximetry Oxygen Delivery Room Air Oxygen Flow Rate 11/19/23 20:00 11/19/23 20:00 11/19/23 20:28 Temperature 97.7 F Pulse Rate 110 H 104 H 112 H Respiratory Rate 18 Blood Pressure 124/56 L Pulse Oximetry 100 Oxygen Delivery Oxygen Flow Rate 11/19/23 20:38 11/19/23 20:39 11/19/23 22:00 Temperature Pulse Rate 112 H 112 H Respiratory Rate Blood Pressure 143/59 H Pulse Oximetry Oxygen Delivery Oxygen Flow Rate 11/19/23 22:00 11/19/23 20:00 11/19/23 20:00 Temperature Pulse Rate 82 119 H Respiratory Rate Blood Pressure Pulse Oximetry Oxygen Delivery Room Air Oxygen Flow Rate 11/19/23 22:00 11/19/23 23:52 11/20/23 00:00 Temperature 97.6 F Pulse Rate 79 105 H 105 H Respiratory Rate 18 Blood Pressure 133/87 Pulse Oximetry 96 Oxygen Delivery Oxygen Flow Rate 11/20/23 00:00 11/20/23 00:00 11/20/23 01:26 Temperature Pulse Rate 102 H 104 H Respiratory Rate Blood Pressure Pulse Oximetry Oxygen Delivery Room Air Oxygen Flow Rate 11/20/23 01:27 11/20/23 04:24 11/20/23 02:00 Temperature 97.8 F Pulse Rate 104 H 124 H 107 H Respiratory Rate 18 Blood Pressure 139/71 Pulse Oximetry 99 Oxygen Delivery Oxygen Flow Rate 11/20/23 02:00 11/20/23 04:00 11/20/23 04:00 Temperature Pulse Rate 111 H 127 H 117 H Respiratory Rate Blood Pressure Pulse Oximetry Oxygen Delivery Oxygen Flow Rate 11/20/23 04:00 11/20/23 06:00 11/20/23 06:04 Temperature Pulse Rate 104 H 104 H Respiratory Rate Blood Pressure Pulse Oximetry Oxygen Delivery Room Air Oxygen Flow Rate 11/20/23 06:05 11/20/23 06:05 11/20/23 06:00 Temperature Pulse Rate 101 H 113 H Respiratory Rate Blood Pressure 148/57 H Pulse Oximetry Oxygen Delivery Oxygen Flow Rate 11/20/23 08:13 11/20/23 08:00 11/20/23 08:00 Temperature 97.6 F Pulse Rate 102 H 81 Respiratory Rate 20 Blood Pressure 134/67 Pulse Oximetry 100 Oxygen Delivery Room Air Oxygen Flow Rate 11/20/23 09:49 11/20/23 08:00 11/20/23 10:00 Temperature Pulse Rate 103 H 111 H 101 H Respiratory Rate Blood Pressure Pulse Oximetry Oxygen Delivery Oxygen Flow Rate Intake/Output Intake/Output: Intake & Output 11/17/23 11/18/23 11/19/23 11/20/23 23:59 23:59 23:59 23:59 Intake Total 480.7 726.6 2885.3 1172.7 Balance 480.7 726.6 2885.3 1172.7 Meds/Results Medications: Active Medications Generic Name Dose Route Start Last Admin Trade Name Freq PRN Reason Stop Dose Admin Aspirin 81 mg 11/20/23 09:00 11/20/23 09:46 Aspirin 81 Mg Enteric Tablet PO 81 mg QAM RAHEEL Administration Brimonidine Tartrate 1 drop 11/18/23 09:00 11/20/23 08:16 Brimonidine Tartrate 0.2% Op Soln 5 Ml Btl EACH EYE 1 drop BID RAHEEL Administration Brinzolamide 1 drop 11/18/23 09:00 11/20/23 08:15 Brinzolamide 1% Ophth Susp 10 Ml EACH EYE 1 drop BID RAHEEL Administration Carbidopa/Levodopa 1 tablet 11/24/23 22:00 Carbidopa/Levodopa 25/100 Mg Tablet PO Q8HR RAHEEL Carbidopa/Levodopa 1 tablet 11/17/23 22:00 11/20/23 04:57 Carbidopa/Levodopa 12.5/50 Mg Tablet PO 11/24/23 14:01 Not Given Q8HR RAHEEL Diltiazem HCl 360 mg 11/19/23 09:00 11/20/23 09:52 Diltiazem Hcl Cd 180 Mg Cap.24hr PO 360 mg QAM RAHEEL Administration Donepezil HCl 5 mg 11/18/23 09:00 11/20/23 09:51 Donepezil Hcl 5 Mg Tablet PO 5 mg QAM RA[facility]EL Administration Dronabinol 5 mg 11/20/23 10:52 Dronabinol (*Crx) 2.5 Mg Capsule PO BID [facility] Sodium Chloride 1,000 mls @ 75 mls/hr 11/18/23 11:20 11/20/23 05:33 Normal Saline Iv IV CONT 75 mls/hr .[id number] RAHEEL Administration Latanoprost 1 drop 11/16/23 21:00 11/19/23 20:12 Latanoprost 0.005% Op Soln 2.5 Ml Btl EACH EYE 1 drop HS RAHEEL Administration Melatonin 5 mg 11/17/23 23:33 11/18/23 00:28 Melatonin 5 Mg Tablet PO 5 mg HS PRN Administration Sleep Metoprolol Tartrate 5 mg 11/17/23 16:46 11/19/23 17:40 Metoprolol Tartrate Inj 5 Mg/5 Ml Vial IV PUSH 5 mg Q2HR PRN Administration Tachycardia Metoprolol Tartrate 100 mg 11/19/23 21:00 11/20/23 09:49 Metoprolol Tartrate 50 Mg Tab PO 100 mg Q12HR RAHEEL Administration Ondansetron HCl 4 mg 11/16/23 15:04 11/17/23 13:42 Ondansetron Inj 4 Mg/2 Ml Vial IV PUSH 4 mg Q4H PRN Administration Nausea Pantoprazole Sodium 40 mg 11/17/23 21:00 11/20/23 08:12 Pantoprazole Sodium Iv 40 Mg Vial IV PUSH 40 mg Q12HR [facility] Administration Pravastatin Sodium 20 mg 11/19/23 21:00 11/19/23 20:13 Pravastatin Sodium 20 Mg Tablet PO Not Given QHS [facility] Rivaroxaban 20 mg 11/19/23 17:00 11/19/23 17:41 Rivaroxaban 20 Mg Tablet PO Not Given DAILY@1700 [facility] Radiology Results: ITS Impressions Chest X-Ray 11/16/23 12:03 IMPRESSION: 1: NO ACUTE CARDIOPULMONARY DISEASE. Head CT 11/16/23 13:52 IMPRESSION: 1. . No acute intracranial abnormality. Chest/Abdomen/Pelvis CT 11/16/23 14:17 IMPRESSION: CHEST: 1. Bilateral basal atelectasis with minimal right pleural effusion. 2. Dilated esophagus with air-fluid level and food content. ABDOMEN/PELVIS: 1. No evidence of appendicitis, diverticulitis or intestinal obstruction. 2. Thickened wall of the stomach with Dilated esophagus. Further evaluation advised. 3. Possible hypodensity in the left kidney upper pole. Artifacts are seen in the area. 4. Impacted fecal material in the rectum. Labs Labs: Laboratory Results - last 24 hr 11/20/23 05:04 WBC 12.2 H RBC 4.17 L Hgb 11.2 L Hct 36.8 L MCV 88.2 MCH 26.9 MCHC 30.4 L RDW 20.7 H Plt Count 394 H MPV 9.2 Immature Gran % (Auto) 0.9 H Neut % (Auto) 80.8 H Lymph % (Auto) 8.7 L Dickenson % (Auto) 8.8 H Eos % (Auto) 0.6 Baso % (Auto) 0.2 Lymph # (Auto) 1.06 Dickenson # (Auto) 1.1 H Eos # (Auto) 0.1 Baso # (Auto) 0.0 Abs Immat Gran (auto) 0.11 H Absolute Neuts (auto) 9.9 H Absolute Nucleated RBC 0.000 Nucleated RBC % 0.0 Sodium 138 Potassium 3.4 Chloride 111 H Carbon Dioxide 13 L Anion Gap 14 H BUN 8 Creatinine 0.60 L Estim Creat Clear Calc 52 Estimated GFR > 60 Glucose 73 Calcium 8.2 L Magnesium 2.0 Total Bilirubin 1.3 AST 23 ALT 12 Alkaline Phosphatase 88 Total Protein 7.0 Albumin 3.2 L
--- NOTE | 2023-11-20 12:35 | PCNFU ---
Nutrition Follow-Up Complete: Moderate protein calorie malnutrition related to inadequate energy intake as evidenced by family report of reduced po intake greater than 1 month, a reported -10% wt loss x 3 months, and NFPE findings for moderate subcutaneous fat loss (cheeks) and moderate muscle wasting (congregation, clavicle). Goal:Diet order PO intake 75% or greater Pt is not meeting either goal. New goals for diet order of soft and bite sized level 6 per speech recommendation PO intake 50% or greater Pt current nutrition is NPO. Nutrition recommendation: Advance diet to soft and bite sized level 6, Add Ensure compact TID with meals Last recorded weight is 55 kg. Bowel Motility:+BM 11/19 Labs Reviewed: Hgb:11.2, HCT:36.8, Cr:0.6 Meds Noted: protonix, zofran Skin: arterial wounds noted Additional Notes: Pt has been NPO now x 4 days. Speech eval this morning with recommendations for a soft and bite sized level 6 diet. pt not interested in eating at this time. Orders put in for an appetite stimulant. Will add Ensure compact TID with meals for supplement. Monitor diet orders, tolerance, intake, wt, labs. Follow up in 3 days.
[2023-11-20] MEDS: CARBIDOPA/LEVODOPA 12.5/50 MG TABLET 1 TABLET PO ×2 (14:52→21:21)
--- NOTE | 2023-11-20 17:06 | PM.IMPN ---
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(s): Z79.01 - long-term (current) use of anticoagulants Status: Acute (8) Peripheral vascular disease: Code(s): I73.9 - Peripheral vascular disease, unspecified Status: Acute (9) Confusion: Code(s): R41.0 - Disorientation, unspecified Status: Acute Plan EGD showed Gastric polyps, GI noted possible manometry for esophageal dysmotility S/p Cardizem infusion, now on Cardizem 360 mg daily and Propranolol Titrate home meds with clinical course Cardiology and GI following Neurology evaluated agrees with Parkinson's disease continue Carbidopa levodopa DVT prophylaxis hold anticoagulation until after EGD Dietitian consulted, Dronabinol 5mg bid monitor and discuss goals of care further with patient and son tomorrow PT/OT consulted Subjective Date/time seen: 11/20/23 17:06 Interval history: Comfortable at bedside however still reports loss of appetite Dietitian consulted and stated on dronabinol Review of Systems Review of Systems: 12 systems were reviewed and are negative except for as per HPI. Exam Narrative: General: Chronically ill, frail elderly female in the semi-Salvador position in bed. Weight: 57.4 kg. BMI: 19.8. HEENT: PERRL, EOMI. Sclera anicteric. Tacky mucous membranes. Neck: Supple. No JVD. Respiratory: Respirations are nonlabored. Lungs are clear a little coarse at the bases but otherwise clear to auscultation. Cardiovascular: Irregularly irregular rate and rhythm. Gastrointestinal: Abdomen is soft, nontender, and nondistended with positive bowel sounds. Occasional belching. Skin: Warm and dry. Feet are cool. Chronic hyperpigmentation of both lower legs consistent with vascular disease. There are scattered ulcerated areas on the toes on both feet. There is an irregularly-shaped ulcer on the left anterior king with pink wound bed and scattered sloughing without evidence of nonviable tissue. A similar smaller ulcer is noted on the right anterior king. Extremities: No cyanosis or clubbing. Chronic [place] edema of the lower legs. Neurological: Alert and oriented x2. Cranial nerves 2-12 are grossly intact. Speech is clear. Generalized weakness without obvious focal deficits. Psychiatric: Pleasantly confused and cooperative. Appropriate mood and flat affect. Repetitive. Objective Data Vital Signs Vital Signs: Vital Signs - 24 hr 11/19/23 17:40 11/19/23 18:00 11/19/23 18:00 Temperature 97.2 F L Pulse Rate 119 H 93 90 Respiratory Rate 18 Blood Pressure 130/76 Pulse Oximetry 99 Oxygen Delivery 11/19/23 20:00 11/19/23 20:00 11/19/23 20:28 Temperature 97.7 F Pulse Rate 110 H 104 H 112 H Respiratory Rate 18 Blood Pressure 124/56 L Pulse Oximetry 100 Oxygen Delivery 11/19/23 20:38 11/19/23 20:39 11/19/23 22:00 Temperature Pulse Rate 112 H 112 H Respiratory Rate Blood Pressure 143/59 H Pulse Oximetry Oxygen Delivery 11/19/23 22:00 11/19/23 20:00 11/19/23 20:00 Temperature Pulse Rate 82 119 H Respiratory Rate Blood Pressure Pulse Oximetry Oxygen Delivery Room Air 11/19/23 22:00 11/19/23 23:52 11/20/23 00:00 Temperature 97.6 F Pulse Rate 79 105 H 105 H Respiratory Rate 18 Blood Pressure 133/87 Pulse Oximetry 96 Oxygen Delivery 11/20/23 00:00 11/20/23 00:00 11/20/23 01:26 Temperature Pulse Rate 102 H 104 H Respiratory Rate Blood Pressure Pulse Oximetry Oxygen Delivery Room Air 11/20/23 01:27 11/20/23 04:24 11/20/23 02:00 Temperature 97.8 F Pulse Rate 104 H 124 H 107 H Respiratory Rate 18 Blood Pressure 139/71 Pulse Oximetry 99 Oxygen Delivery 11/20/23 02:00 11/20/23 04:00 11/20/23 04:00 Temperature Pulse Rate 111 H 127 H 117 H Respiratory Rate Blood Pressure Pulse Oximetry Oxygen Delivery 11/20/23 04:00 11/20/23 06:00 11/20/23 06:04 Temperature Pulse Rate 104 H 104 H Respiratory Rate Blood Pressure Pulse Oximetry Oxygen Delivery Room Air 11/20/23 06:05 11/20/23 06:05 11/20/23 06:00 Temperature Pulse Rate 101 H 113 H Respiratory Rate Blood Pressure 148/57 H Pulse Oximetry Oxygen Delivery 11/20/23 08:13 11/20/23 08:00 11/20/23 08:00 Temperature 97.6 F Pulse Rate 102 H 81 Respiratory Rate 20 Blood Pressure 134/67 Pulse Oximetry 100 Oxygen Delivery Room Air 11/20/23 09:49 11/20/23 08:00 11/20/23 10:00 Temperature Pulse Rate 103 H 111 H 101 H Respiratory Rate Blood Pressure Pulse Oximetry Oxygen Delivery 11/20/23 12:00 11/20/23 10:00 11/20/23 14:00 Temperature 97.9 F 97.7 F 97.5 F L Pulse Rate 68 96 91 Respiratory Rate 20 20 24 H Blood Pressure 138/70 146/58 H 150/73 H Pulse Oximetry 100 100 98 Oxygen Delivery 11/20/23 12:00 11/20/23 14:00 11/20/23 12:00 Temperature Pulse Rate 76 83 Respiratory Rate Blood Pressure Pulse Oximetry Oxygen Delivery Room Air 11/20/23 15:59 11/20/23 16:00 11/20/23 16:00 Temperature 98.4 F Pulse Rate 93 92 Respiratory Rate 20 Blood Pressure 119/72 Pulse Oximetry 99 Oxygen Delivery Room Air Intake/Output Intake/Output: Intake & Output 11/17/23 11/18/23 11/19/23 11/20/23 23:59 23:59 23:59 23:59 Intake Total 480.7 726.6 2885.3 1172.7 Balance 480.7 726.6 2885.3 1172.7 Meds/Results Medications: Active Medications Generic Name Dose Route Start Last Admin Trade Name Freq PRN Reason Stop Dose Admin Aspirin 81 mg 11/20/23 09:00 11/20/23 09:46 Aspirin 81 Mg Enteric Tablet PO 81 mg QAM [facility] Administration Brimonidine Tartrate 1 drop 11/18/23 09:00 11/20/23 08:16 Brimonidine Tartrate 0.2% Op Soln 5 Ml Btl EACH EYE 1 drop BID RAHEEL Administration Brinzolamide 1 drop 11/18/23 09:00 11/20/23 08:15 Brinzolamide 1% Ophth Susp 10 Ml EACH EYE 1 drop BID RAHEEL Administration Carbidopa/Levodopa 1 tablet 11/24/23 22:00 Carbidopa/Levodopa 25/100 Mg Tablet PO Q8HR RAHEEL Carbidopa/Levodopa 1 tablet 11/17/23 22:00 11/20/23 14:52 Carbidopa/Levodopa 12.5/50 Mg Tablet PO 11/24/23 14:01 1 tablet Q8HR RAHEEL Administration Diltiazem HCl 360 mg 11/19/23 09:00 11/20/23 09:52 Diltiazem Hcl Cd 180 Mg Cap.24hr PO 360 mg QAM RAHEEL Administration Donepezil HCl 5 mg 11/18/23 09:00 11/20/23 09:51 Donepezil Hcl 5 Mg Tablet PO 5 mg QAM RAHEEL Administration Dronabinol 5 mg 11/20/23 10:52 11/20/23 12:11 Dronabinol (*Crx) 2.5 Mg Capsule PO 5 mg BID RAHEEL Administration Sodium Chloride 1,000 mls @ 75 mls/hr 11/18/23 11:20 11/20/23 05:33 Normal Saline Iv IV CONT 75 mls/hr .[id number] RAHEEL Administration Latanoprost 1 drop 11/16/23 21:00 11/19/23 20:12 Latanoprost 0.005% Op Soln 2.5 Ml Btl EACH EYE 1 drop HS [facility]HEEL Administration Melatonin 5 mg 11/17/23 23:33 11/18/23 00:28 Melatonin 5 Mg Tablet PO 5 mg HS PRN Administration Sleep Metoprolol Tartrate 5 mg 11/17/23 16:46 11/19/23 17:40 Metoprolol Tartrate Inj 5 Mg/5 Ml Vial IV PUSH 5 mg Q2HR PRN Administration Tachycardia Metoprolol Tartrate 100 mg 11/19/23 21:00 11/20/23 09:49 Metoprolol Tartrate 50 Mg Tab PO 100 mg Q12HR RAHEEL Administration Ondansetron HCl 4 mg 11/16/23 15:04 11/17/23 13:42 Ondansetron Inj 4 Mg/2 Ml Vial IV PUSH 4 mg Q4H PRN Administration Nausea Pantoprazole Sodium 40 mg 11/17/23 21:00 11/20/23 08:12 Pantoprazole Sodium Iv 40 Mg Vial IV PUSH 40 mg Q12HR [facility] Administration Pravastatin Sodium 20 mg 11/19/23 21:00 11/19/23 20:13 Pravastatin Sodium 20 Mg Tablet PO Not Given QHS [facility] Rivaroxaban 20 mg 11/19/23 17:00 11/19/23 17:41 Rivaroxaban 20 Mg Tablet PO Not Given DAILY@1700 [facility] Radiology Results: ITS Impressions Chest X-Ray 11/16/23 12:03 IMPRESSION: 1: NO ACUTE CARDIOPULMONARY DISEASE. Head CT 11/16/23 13:52 IMPRESSION: 1. . No acute intracranial abnormality. Chest/Abdomen/Pelvis CT 11/16/23 14:17 IMPRESSION: CHEST: 1. Bilateral basal atelectasis with minimal right pleural effusion. 2. Dilated esophagus with air-fluid level and food content. ABDOMEN/PELVIS: 1. No evidence of appendicitis, diverticulitis or intestinal obstruction. 2. Thickened wall of the stomach with Dilated esophagus. Further evaluation advised. 3. Possible hypodensity in the left kidney upper pole. Artifacts are seen in the area. 4. Impacted fecal material in the rectum. Labs Labs: Laboratory Results - last 24 hr 11/20/23 05:04 WBC 12.2 H RBC 4.17 L Hgb 11.2 L Hct 36.8 L MCV 88.2 MCH 26.9 MCHC 30.4 L RDW 20.7 H Plt Count 394 H MPV 9.2 Immature Gran % (Auto) 0.9 H Neut % (Auto) 80.8 H Lymph % (Auto) 8.7 L [place] % (Auto) 8.8 H Eos % (Auto) 0.6 Baso % (Auto) 0.2 Lymph # (Auto) 1.06 [place] # (Auto) 1.1 H Eos # (Auto) 0.1 Baso # (Auto) 0.0 Abs Immat Gran (auto) 0.11 H Absolute Neuts (auto) 9.9 H Absolute Nucleated RBC 0.000 Nucleated RBC % 0.0 Sodium 138 Potassium 3.4 Chloride 111 H Carbon Dioxide 13 L Anion Gap 14 H BUN 8 Creatinine 0.60 L Estim Creat Clear Calc 52 Estimated GFR > 60 Glucose 73 Calcium 8.2 L Magnesium 2.0 Total Bilirubin 1.3 AST 23 ALT 12 Alkaline Phosphatase 88 Total Protein 7.0 Albumin 3.2 L Quality VTE Prophylaxis VTE prophylaxis: mechanical ordered
[2023-11-20] MEDS: RIVAROXABAN 20 MG TABLET PO (17:32)
[2023-11-20] MEDS: LATANOPROST 0.005% OP SOLN 2.5 ML BTL 1 DROP EACH EYE (21:12)
[2023-11-20] MEDS: PRAVASTATIN SODIUM 20 MG TABLET PO (21:21)
[2023-11-21] VITALS (15 sets, daily range): BP systolic 127–175; BP diastolic 54–81; PULSE 65–117; RESP 16–20; TEMP 35.9–36.9; O2SAT 83–100
[2023-11-21 05:20] LABS: Basophils Percent Auto 0.3 % (0.2-1.2); Eosinophils Absolute Auto 0.1 K/mm3 (0-0.3); Eosinophils Percent Auto 0.8 % (0-4.4); Hematocrit 37.4 % (37.0-47.0); Hemoglobin 11.7 g/dL (12.0-15.0); Immature Granulocyte Absolute 0.11 K/mm3 (0.00-0.031); Immature Granulocyte Percent A 1.1 % (0-0.5); Lymphocytes Absolute Auto 0.88 K/mm3 (0.9-3.2); Lymphocytes Percent Auto 8.8 % (18.3-44.2); Mean Corpuscular HGB Conc 31.3 g/dl (32-36); Mean Corpuscular Hemoglobin 27.2 pg (26-34); Monocytes Absolute Auto 0.8 K/mm3 (0.1-0.6); Monocytes Percent Auto 7.9 % (2.6-8.5); Neutrophils Absolute Auto 8.1 K/mm3 (1.3-6.7); Neutrophils Percent Auto 81.1 % (45.5-73.1); Platelet Count Result 365 k/mm3 (150-375); Red Cell Distribution Width 20.9 % (11.5-14.5)
[2023-11-21 05:33] LABS: Alanine Aminotransferase 6 U/L (6-35); Albumin Level 3.2 g/dL (3.5-5.1); Alkaline Phosphatase 85 U/L (38-126); Anion Gap 11 mmol/L (4-12); Aspartate Amino Transferase 22 U/L (14-36); Blood Urea Nitrogen 8 mg/dL (7-17); Calcium 8.3 mg/dL (8.4-10.2); Carbon Dioxide 17 mmol/L (22-30); Chloride 111 mmol/L (98-107); Estimated CRCL calculation 62 ml/min; Estimated Glomerular Filt Rate > 60; Glucose 101 mg/dL (65-110); Sodium 139 mmol/L (137-145)
[2023-11-21] MEDS: CARBIDOPA/LEVODOPA 12.5/50 MG TABLET 1 TABLET PO ×3 (06:52→20:34)
--- NOTE | 2023-11-21 07:59 | PM.PNCARD ---
Progress Note: A&P Assessment and Plan (1) Atrial fibrillation: Code(s): I48.91 - Unspecified atrial fibrillation Status: Acute Assessment and Plan: Chronic. HR is rapid this morning. On Diltiazem 360 mg daily, Metoprolol 100 mg BID. [id number] 5. On Xarelto. Add Digoxin 125 mcg daily. (2) Peripheral vascular disease: Code(s): I73.9 - Peripheral vascular disease, unspecified Status: Acute Assessment and Plan: On aspirin and Xarelto. Her regular engineer second assistant is Dr. Marcano at [facility]. (3) Hypertension: Code(s): I10 - Essential (primary) hypertension Status: Acute Assessment and Plan: Stable. Monitor as HR is being controlled. (4) Dyslipidemia: Code(s): E78.5 - Hyperlipidemia, unspecified Status: Acute Assessment and Plan: On Pravastatin. Subjective Date/time seen: 11/21/23 07:59 Interval history: States feels weak. No chest pain or sob. Exam Const: General: cooperative, healthy appearing and comfortable Orientation/consciousness: oriented to person, oriented to place and oriented to time Resp: Auscultation: clear to auscultation bilaterally, no crackles, no rales, no rhonchi and no wheezes Cardio: Rate: tachycardic Rhythm: abnormal rhythm Heart sounds: no murmurs Peripheral pulses: dorsalis pedis present Neuro: General: oriented to person, oriented to place and oriented to time Extrem: Right lower extremity: no edema Left lower extremity: no edema Objective Data Vital Signs Vital Signs: Vital Signs - 24 hr 11/20/23 08:13 11/20/23 08:00 11/20/23 08:00 Temperature 97.6 F Pulse Rate 102 H 81 Respiratory Rate 20 Blood Pressure 134/67 Pulse Oximetry 100 Oxygen Delivery Room Air 11/20/23 09:49 11/20/23 08:00 11/20/23 10:00 Temperature Pulse Rate 103 H 111 H 101 H Respiratory Rate Blood Pressure Pulse Oximetry Oxygen Delivery 11/20/23 12:00 11/20/23 10:00 11/20/23 14:00 Temperature 97.9 F 97.7 F 97.5 F L Pulse Rate 68 96 91 Respiratory Rate 20 20 24 H Blood Pressure 138/70 146/58 H 150/73 H Pulse Oximetry 100 100 98 Oxygen Delivery 11/20/23 12:00 11/20/23 14:00 11/20/23 12:00 Temperature Pulse Rate 76 83 Respiratory Rate Blood Pressure Pulse Oximetry Oxygen Delivery Room Air 11/20/23 15:59 11/20/23 16:00 11/20/23 16:00 Temperature 98.4 F Pulse Rate 93 92 Respiratory Rate 20 Blood Pressure 119/72 Pulse Oximetry 99 Oxygen Delivery Room Air 11/20/23 18:00 11/20/23 18:00 11/20/23 20:00 Temperature 98.5 F 98.1 F Pulse Rate 75 105 H 76 Respiratory Rate 20 18 Blood Pressure 124/51 L 112/58 L Pulse Oximetry 99 100 Oxygen Delivery 11/20/23 20:00 11/20/23 20:00 11/20/23 21:19 Temperature Pulse Rate 97 87 Respiratory Rate Blood Pressure Pulse Oximetry Oxygen Delivery Room Air 11/20/23 21:22 11/20/23 21:44 11/20/23 22:00 Temperature Pulse Rate 85 76 Respiratory Rate Blood Pressure 128/63 Pulse Oximetry 96 Oxygen Delivery Room Air 11/21/23 00:00 11/21/23 00:00 11/21/23 00:00 Temperature 97.4 F L Pulse Rate 89 95 Respiratory Rate 20 Blood Pressure 127/54 L Pulse Oximetry 99 Oxygen Delivery Room Air 11/21/23 02:00 11/21/23 04:00 11/21/23 04:00 Temperature Pulse Rate 89 115 H Respiratory Rate Blood Pressure Pulse Oximetry Oxygen Delivery Room Air 11/21/23 04:00 11/21/23 06:00 Temperature 98.1 F Pulse Rate 110 H 106 H Respiratory Rate 20 Blood Pressure 150/76 H Pulse Oximetry 100 Oxygen Delivery Intake/Output Intake/Output: Intake & Output 11/18/23 11/19/23 11/20/23 11/21/23 23:59 23:59 23:59 23:59 Intake Total 726.6 2885.3 2391.4 150 Output Total 450 750 Balance 726.6 2885.3 1941.4 -600 Meds/Results Medications: Active Medications Generic Name Dose Route Start Last Admin Trade Name Freq PRN Reason Stop Dose Admin Aspirin 81 mg 11/20/23 09:00 11/20/23 09:46 Aspirin 81 Mg Enteric Tablet PO 81 mg QAM RAHEEL Administration Brimonidine Tartrate 1 drop 11/18/23 09:00 11/20/23 17:32 Brimonidine Tartrate 0.2% Op Soln 5 Ml Btl EACH EYE 1 drop BID RAHEEL Administration Brinzolamide 1 drop 11/18/23 09:00 11/20/23 17:32 Brinzolamide 1% Ophth Susp 10 Ml EACH EYE 1 drop BID RAHEEL Administration Carbidopa/Levodopa 1 tablet 11/24/23 22:00 Carbidopa/Levodopa 25/100 Mg Tablet PO Q8HR RAHEEL Carbidopa/Levodopa 1 tablet 11/17/23 22:00 11/21/23 06:52 Carbidopa/Levodopa 12.5/50 Mg Tablet PO 11/24/23 14:01 1 tablet Q8HR RAHEEL Administration Digoxin 125 mcg 11/21/23 09:00 Digoxin Tab 125 Mcg Tablet PO QAM RAHEEL Diltiazem HCl 360 mg 11/19/23 09:00 11/20/23 09:52 Diltiazem Hcl Cd 180 Mg Cap.24hr PO 360 mg QAM RAHEEL Administration Donepezil HCl 5 mg 11/18/23 09:00 11/20/23 09:51 Donepezil Hcl 5 Mg Tablet PO 5 mg QAM RAHEEL Administration Dronabinol 5 mg 11/20/23 10:52 11/20/23 17:32 Dronabinol (*Crx) 2.5 Mg Capsule PO 5 mg BID RAHEEL Administration Sodium Chloride 1,000 mls @ 75 mls/hr 11/18/23 11:20 11/20/23 17:32 Normal Saline Iv IV CONT 75 mls/hr .[id number] RAHEEL Administration Latanoprost 1 drop 11/16/23 21:00 11/20/23 21:12 Latanoprost 0.005% Op Soln 2.5 Ml Btl EACH EYE 1 drop HS RAHEEL Administration Melatonin 5 mg 11/17/23 23:33 11/18/23 00:28 Melatonin 5 Mg Tablet PO 5 mg HS PRN Administration Sleep Metoprolol Tartrate 5 mg 11/17/23 16:46 11/19/23 17:40 Metoprolol Tartrate Inj 5 Mg/5 Ml Vial IV PUSH 5 mg Q2HR PRN Administration Tachycardia Metoprolol Tartrate 100 mg 11/19/23 21:00 11/20/23 21:19 Metoprolol Tartrate 50 Mg Tab PO 100 mg Q12HR RAHEEL Administration Ondansetron HCl 4 mg 11/16/23 15:04 11/17/23 13:42 Ondansetron Inj 4 Mg/2 Ml Vial IV PUSH 4 mg Q4H PRN Administration Nausea Pantoprazole Sodium 40 mg 11/17/23 21:00 11/20/23 21:21 Pantoprazole Sodium Iv 40 Mg Vial IV PUSH 40 mg Q12HR RAHEEL Administration Pravastatin Sodium 20 mg 11/19/23 21:00 11/20/23 21:21 Pravastatin Sodium 20 Mg Tablet PO 20 mg QHS RAHEEL Administration Rivaroxaban 20 mg 11/19/23 17:00 11/20/23 17:32 Rivaroxaban 20 Mg Tablet PO 20 mg DAILY@1700 RAHEEL Administration Radiology Results: ITS Impressions Chest X-Ray 11/16/23 12:03 IMPRESSION: 1: NO ACUTE CARDIOPULMONARY DISEASE. Head CT 11/16/23 13:52 IMPRESSION: 1. . No acute intracranial abnormality. Chest/Abdomen/Pelvis CT 11/16/23 14:17 IMPRESSION: CHEST: 1. Bilateral basal atelectasis with minimal right pleural effusion. 2. Dilated esophagus with air-fluid level and food content. ABDOMEN/PELVIS: 1. No evidence of appendicitis, diverticulitis or intestinal obstruction. 2. Thickened wall of the stomach with Dilated esophagus. Further evaluation advised. 3. Possible hypodensity in the left kidney upper pole. Artifacts are seen in the area. 4. Impacted fecal material in the rectum. Labs Labs: Laboratory Results - last 24 hr 11/21/23 04:33 WBC 10.0 RBC 4.30 Hgb 11.7 L Hct 37.4 MCV 87.0 MCH 27.2 MCHC 31.3 L RDW 20.9 H Plt Count 365 MPV 9.0 Immature Gran % (Auto) 1.1 H Neut % (Auto) 81.1 H Lymph % (Auto) 8.8 L [place] % (Auto) 7.9 Eos % (Auto) 0.8 Baso % (Auto) 0.3 Lymph # (Auto) 0.88 L [place] # (Auto) 0.8 H Eos # (Auto) 0.1 Baso # (Auto) 0.0 Abs Immat Gran (auto) 0.11 H Absolute Neuts (auto) 8.1 H Absolute Nucleated RBC 0.000 Nucleated RBC % 0.0 Sodium 139 Potassium 3.0 L Chloride 111 H Carbon Dioxide 17 L Anion Gap 11 BUN 8 Creatinine 0.50 L Estim Creat Clear Calc 62 Estimated GFR > 60 Glucose 101 Calcium 8.3 L Magnesium 2.0 Total Bilirubin 1.0 AST 22 ALT 6 Alkaline Phosphatase 85 Total Protein 7.0 Albumin 3.2 L
[2023-11-21] MEDS: SODIUM CHLORIDE 0.9% IV 1,000 ML 75 ML IV CONT ×2 (09:07→18:13)
[2023-11-21] MEDS: droNABinol (*CRX) 2.5 MG CAPSULE 10 MG PO ×2 (09:09→18:13)
[2023-11-21] MEDS: DIGOXIN TAB 125 MCG TABLET PO (09:10)
[2023-11-21] MEDS: POTASSIUM CHLORIDE 20 MEQ ER TABLET 40 MEQ PO (09:10)
[2023-11-21] MEDS: dilTIAZem HCL CD 180 MG CAP.24HR 360 MG PO (09:11)
[2023-11-21] MEDS: BRINZOLAMIDE 1% OPHTH SUSP 10 ML 1 DROP EACH EYE ×2 (09:11→18:12)
[2023-11-21] MEDS: ASPIRIN 81 MG ENTERIC TABLET PO (09:11)
[2023-11-21] MEDS: METOPROLOL TARTRATE 50 MG TAB 100 MG PO ×2 (09:11→20:36)
[2023-11-21] MEDS: BRIMONIDINE TARTRATE 0.2% OP SOLN 5 ML BTL 1 DROP EACH EYE ×2 (09:11→18:13)
[2023-11-21] MEDS: PANTOPRAZOLE SODIUM IV 40 MG VIAL IV PUSH ×2 (09:12→20:33)
[2023-11-21] MEDS: DONEPEZIL HCL 5 MG TABLET PO (09:12)
[2023-11-21] MEDS: POTASSIUM CHLORIDE INJ 40 MEQ in SODIUM CHLORIDE 0.9% IV 500 ML 130 MEQ IVPB (09:12)
--- NOTE | 2023-11-21 11:59 | PCOTNOTE ---
Received OT orders. Family in room and pt sleeping. Family is considering hospice but no formal decision yet. They would like to allow pt to continue to sleep for now and ask that therapy check in another time to see if pt would be up for doing anything. Will continue to follow.
[2023-11-21 12:08] LABS: Methylmalonic Acid 81 nmol/L (85-423)
--- NOTE | 2023-11-21 14:37 | PC.NURSE ---
This patient, Farnaz Meier, was transferred to [246] on 11/21/23 at 1435. Personal belongings sent with patient. Report given to RN. Appropriate documentation sent with patient.
--- NOTE | 2023-11-21 14:48 | PC.NURSE ---
pt transferred in to room 246 via bed, oriented to new room and environment, reviewed plan of care
--- NOTE | 2023-11-21 16:01 | P.PNIM_ITS ---
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(s): Z79.01 - residential (current) use of anticoagulants Status: Acute (8) Peripheral vascular disease: Code(s): I73.9 - Peripheral vascular disease, unspecified Status: Acute (9) Confusion: Code(s): R41.0 - Disorientation, unspecified Status: Acute Plan EGD showed Gastric polyps, GI noted possible manometry for esophageal dysmotility S/p Cardizem infusion, now on Cardizem 360 mg daily and Propranolol Titrate home meds with clinical course Cardiology and GI following Neurology evaluated agrees with Parkinson's disease continue Carbidopa levodopa DVT prophylaxis hold anticoagulation until after EGD Dietitian consulted, Dronabinol increased to 10mg bid Patient and family considering hospice care PT/OT consulted DVT prophylaxis on Xarelto Subjective Date/time seen: 11/21/23 16:01 Interval history: Patient lethargic at bedside family considering hospice care Declined tube feeding Review of Systems Review of Systems: 12 systems were reviewed and are negativ e except for as per HPI. Exam Narrative: General: Chronically ill, frail elderly female in the semi-Salvador position in bed. Weight: 57.4 kg. BMI: 19.8. HEENT: PERRL, EOMI. Sclera anicteric. Tacky mucous membranes. Neck: Supple. No JVD. Respiratory: Respirations are nonlabored. Lungs are clear a little coarse at the bases but otherwise clear to auscultation. Cardiovascular: Irregularly irregular rate and rhythm. Gastrointestinal: Abdomen is soft, nontender, and nondistended with positive bowel sounds. Occasional belching. Skin: Warm and dry. Feet are cool. Chronic hyperpigmentation of both lower legs consistent with vascular disease. There are scattered ulcerated areas on the toes on both feet. There is an irregularly-shaped ulcer on the left anterior king with pink wound bed and scattered sloughing without evidence of nonviable tissue. A similar smaller ulcer is noted on the right anterior king. Extremities: No cyanosis or clubbing. Chronic [place] edema of the lower legs. Neurological: Alert and oriented x2. Cranial nerves 2-12 are grossly intact. Speech is clear. Generalized weakness without obvious focal deficits. Psychiatric: Pleasantly confused and cooperative. Appropriate mood and flat affect. Repetitive. Objective Data Vital Signs Vital Signs: Vital Signs - 24 hr 11/20/23 18:00 11/20/23 18:00 11/20/23 20:00 Temperature 98.5 F 98.1 F Pulse Rate 75 105 H 76 Respiratory Rate 20 18 Blood Pressure 124/51 L 112/58 L Pulse Oximetry 99 100 Oxygen Delivery 11/20/23 20:00 11/20/23 20:00 11/20/23 21:19 Temperature Pulse Rate 97 87 Respiratory Rate Blood Pressure Pulse Oximetry Oxygen Delivery Room Air 11/20/23 21:22 11/20/23 21:44 11/20/23 22:00 Temperature Pulse Rate 85 76 Respiratory Rate Blood Pressure 128/63 Pulse Oximetry 96 Oxygen Delivery Room Air 11/21/23 00:00 11/21/23 00:00 11/21/23 00:00 Temperature 97.4 F L Pulse Rate 89 95 Respiratory Rate 20 Blood Pressure 127/54 L Pulse Oximetry 99 Oxygen Delivery Room Air 11/21/23 02:00 11/21/23 04:00 11/21/23 04:00 Temperature Pulse Rate 89 115 H Respiratory Rate Blood Pressure Pulse Oximetry Oxygen Delivery Room Air 11/21/23 04:00 11/21/23 06:00 11/21/23 08:00 Temperature 98.1 F 97.5 F L Pulse Rate 110 H 106 H 116 H Respiratory Rate 20 20 Blood Pressure 150/76 H 175/80 H Pulse Oximetry 100 100 Oxygen Delivery 11/21/23 09:10 11/21/23 09:11 11/21/23 11:40 Temperature 97.5 F L Pulse Rate 115 H 115 H 95 Respiratory Rate 20 Blood Pressure 161/81 H Pulse Oximetry 83 L Oxygen Delivery 11/21/23 08:00 11/21/23 12:00 11/21/23 08:00 Temperature Pulse Rate 100 Respiratory Rate Blood Pressure Pulse Oximetry Oxygen Delivery Room Air Room Air 11/21/23 10:00 11/21/23 12:00 Temperature Pulse Rate 117 H 80 Respiratory Rate Blood Pressure Pulse Oximetry Oxygen Delivery Intake/Output Intake/Output: Intake & Output 11/18/23 11/19/23 11/20/23 11/21/23 23:59 23:59 23:59 23:59 Intake Total 726.6 2885.3 2391.4 1510 Output Total 450 750 Balance 726.6 2885.3 1941.4 760 Meds/Results Medications: Active Medications Generic Name Dose Route Start Last Admin Trade Name Freq PRN Reason Stop Dose Admin Aspirin 81 mg 11/20/23 09:00 11/21/23 09:11 Aspirin 81 Mg Enteric Tablet PO 81 mg QAM RAHEEL Administration Brimonidine Tartrate 1 drop 11/18/23 09:00 11/21/23 09:11 Brimonidine Tartrate 0.2% Op Soln 5 Ml Btl EACH EYE 1 drop BID RAHEEL Administration Brinzolamide 1 drop 11/18/23 09:00 11/21/23 09:11 Brinzolamide 1% Ophth Susp 10 Ml EACH EYE 1 drop BID RAHEEL Administration Carbidopa/Levodopa 1 tablet 11/24/23 22:00 Carbidopa/Levodopa 25/100 Mg Tablet PO Q8HR RAHEEL Carbidopa/Levodopa 1 tablet 11/17/23 22:00 11/21/23 06:52 Carbidopa/Levodopa 12.5/50 Mg Tablet PO 11/24/23 14:01 1 tablet Q8HR RAHEEL Administration Digoxin 125 mcg 11/21/23 09:00 11/21/23 09:10 Digoxin Tab 125 Mcg Tablet PO 125 mcg QAM RAHEEL Administration Diltiazem HCl 360 mg 11/19/23 09:00 11/21/23 09:11 Diltiazem Hcl Cd 180 Mg Cap.24hr PO 360 mg QAM RAHEEL Administration Donepezil HCl 5 mg 11/18/23 09:00 11/21/23 09:12 Donepezil Hcl 5 Mg Tablet PO 5 mg QAM RAHEEL Administration Dronabinol 10 mg 11/21/23 09:00 11/21/23 09:09 Dronabinol (*Crx) 2.5 Mg Capsule PO 10 mg BID RAHEEL Administration Sodium Chloride 1,000 mls @ 75 mls/hr 11/18/23 11:20 11/21/23 09:07 Normal Saline Iv IV CONT 75 mls/hr .[id number] RAHEEL Administration Latanoprost 1 drop 11/16/23 21:00 11/20/23 21:12 Latanoprost 0.005% Op Soln 2.5 Ml Btl EACH EYE 1 drop HS RAHEEL Administration Melatonin 5 mg 11/17/23 23:33 11/18/23 00:28 Melatonin 5 Mg Tablet PO 5 mg HS PRN Administration Sleep Metoprolol Tartrate 5 mg 11/17/23 16:46 11/19/23 17:40 Metoprolol Tartrate Inj 5 Mg/5 Ml Vial IV PUSH 5 mg Q2HR PRN Administration Tachycardia Metoprolol Tartrate 100 mg 11/19/23 21:00 11/21/23 09:11 Metoprolol Tartrate 50 Mg Tab PO 100 mg Q12HR RAHEEL Administration Ondansetron HCl 4 mg 11/16/23 15:04 11/17/23 13:42 Ondansetron Inj 4 Mg/2 Ml Vial IV PUSH 4 mg Q4H PRN Administration Nausea Pantoprazole Sodium 40 mg 11/17/23 21:00 11/21/23 09:12 Pantoprazole Sodium Iv 40 Mg Vial IV PUSH 40 mg Q12HR RAHEEL Administration Pravastatin Sodium 20 mg 11/19/23 21:00 11/20/23 21:21 Pravastatin Sodium 20 Mg Tablet PO 20 mg QHS RAHEEL Administration Rivaroxaban 20 mg 11/19/23 17:00 11/20/23 17:32 Rivaroxaban 20 Mg Tablet PO 20 mg DAILY@1700 RAHEEL Administration Radiology Results: ITS Impressions Chest X-Ray 11/16/23 12:03 IMPRESSION: 1: NO ACUTE CARDIOPULMONARY DISEASE. Head CT 11/16/23 13:52 IMPRESSION: 1. . No acute intracranial abnormality. Chest/Abdomen/Pelvis CT 11/16/23 14:17 IMPRESSION: CHEST: 1. Bilateral basal atelectasis with minimal right pleural effusion. 2. Dilated esophagus with air-fluid level and food content. ABDOMEN/PELVIS: 1. No evidence of appendicitis, diverticulitis or intestinal obstruction. 2. Thickened wall of the stomach with Dilated esophagus. Further evaluation advised. 3. Possible hypodensity in the left kidney upper pole. Artifacts are seen in the area. 4. Impacted fecal material in the rectum. Labs Labs: Laboratory Results - last 24 hr 11/17/23 11/21/23 21:36 04:33 WBC 10.0 RBC 4.30 Hgb 11.7 L Hct 37.4 MCV 87.0 MCH 27.2 MCHC 31.3 L RDW 20.9 H Plt Count 365 MPV 9.0 Immature Gran % (Auto) 1.1 H Neut % (Auto) 81.1 H Lymph % (Auto) 8.8 L [place] % (Auto) 7.9 Eos % (Auto) 0.8 Baso % (Auto) 0.3 Lymph # (Auto) 0.88 L [place] # (Auto) 0.8 H Eos # (Auto) 0.1 Baso # (Auto) 0.0 Abs Immat Gran (auto) 0.11 H Absolute Neuts (auto) 8.1 H Absolute Nucleated RBC 0.000 Nucleated RBC % 0.0 Sodium 139 Potassium 3.0 L Chloride 111 H Carbon Dioxide 17 L Anion Gap 11 BUN 8 Creatinine 0.50 L Estim Creat Clear Calc 62 Estimated GFR > 60 Glucose 101 Calcium 8.3 L Magnesium 2.0 Total Bilirubin 1.0 AST 22 ALT 6 Alkaline Phosphatase 85 Total Protein 7.0 Albumin 3.2 L Methylmalonic Acid 81 L Quality VTE Prophylaxis VTE prophylaxis: mechanical ordered
[2023-11-21] MEDS: RIVAROXABAN 20 MG TABLET PO (18:13)
[2023-11-21] MEDS: LATANOPROST 0.005% OP SOLN 2.5 ML BTL 1 DROP EACH EYE (20:34)
[2023-11-21] MEDS: PRAVASTATIN SODIUM 20 MG TABLET PO (20:34)
[2023-11-22] VITALS (11 sets, daily range): BP systolic 150–160; BP diastolic 32–76; PULSE 43–116; RESP 18–20; TEMP 36.6–36.8; O2SAT 96–99
[2023-11-22 05:18] LABS: Basophils Percent Auto 0.3 % (0.2-1.2); Eosinophils Absolute Auto 0.1 K/mm3 (0-0.3); Eosinophils Percent Auto 0.6 % (0-4.4); Hematocrit 32.8 % (37.0-47.0); Hemoglobin 10.1 g/dL (12.0-15.0); Mean Corpuscular HGB Conc 30.8 g/dl (32-36); Mean Corpuscular Hemoglobin 27.2 pg (26-34); Mean Corpuscular Volume 88.2 fl (80-100); Mean Platelet Volume 9.1 fl (7.4-10.4); Monocytes Percent Auto 9.6 % (2.6-8.5); Neutrophils Absolute Auto 8.1 K/mm3 (1.3-6.7); Neutrophils Percent Auto 80.5 % (45.5-73.1); Platelet Count Result 325 k/mm3 (150-375); Red Blood Count 3.72 M/mm3 (4.2-5.4)
[2023-11-22] MEDS: CARBIDOPA/LEVODOPA 12.5/50 MG TABLET 1 TABLET PO (05:21)
[2023-11-22 05:29] LABS: Alkaline Phosphatase 75 U/L (38-126); Anion Gap 9 mmol/L (4-12); Aspartate Amino Transferase 20 U/L (14-36); Bilirubin,Total 0.9 mg/dL (0.2-1.3); Blood Urea Nitrogen 7 mg/dL (7-17); Calcium 8.2 mg/dL (8.4-10.2); Carbon Dioxide 16 mmol/L (22-30); Chloride 112 mmol/L (98-107); Estimated CRCL calculation 76 ml/min; Estimated Glomerular Filt Rate > 60; Glucose 95 mg/dL (65-110); Magnesium 1.9 mg/dL (1.6-2.3); Potassium 3.7 mmol/L (3.4-5.0); Sodium 137 mmol/L (137-145)
[2023-11-22 05:30] LABS: Alanine Aminotransferase < 6 U/L (6-35)
[2023-11-22] MEDS: SODIUM CHLORIDE 0.9% IV 1,000 ML 75 ML IV CONT (07:30)
[2023-11-22] MEDS: DONEPEZIL HCL 5 MG TABLET PO (08:23)
[2023-11-22] MEDS: BRIMONIDINE TARTRATE 0.2% OP SOLN 5 ML BTL 1 DROP EACH EYE ×2 (08:23→17:11)
[2023-11-22] MEDS: BRINZOLAMIDE 1% OPHTH SUSP 10 ML 1 DROP EACH EYE ×2 (08:23→17:11)
[2023-11-22] MEDS: DIGOXIN TAB 125 MCG TABLET PO (08:24)
[2023-11-22] MEDS: droNABinol (*CRX) 2.5 MG CAPSULE 10 MG PO (08:24)
[2023-11-22] MEDS: METOPROLOL TARTRATE 50 MG TAB 100 MG PO (08:24)
[2023-11-22] MEDS: ASPIRIN 81 MG ENTERIC TABLET PO (08:24)
[2023-11-22] MEDS: dilTIAZem HCL CD 180 MG CAP.24HR 360 MG PO (08:24)
[2023-11-22] MEDS: PANTOPRAZOLE SODIUM IV 40 MG VIAL IV PUSH (08:27)
--- NOTE | 2023-11-22 11:30 | PCOTNOTE ---
Attempted OT evaluation; pt. refused to get out of bed. Family is considering hospice however no final decision has been made. Family is looking for placement. Will attempt again as able.
--- NOTE | 2023-11-22 15:28 | PC.NURSE ---
son at bedside, pt has been somnolent today, only opening eyes when spoken to, she has been confused, he is voicing concerns about her declining condition, he understands the situation, other son and his family will be here this evening, pt will not even agree to drink water at this time
[2023-11-22] MEDS: LORazepam INJ (*CRX) 2 MG/ML VIAL 0.5 MG IV PUSH (20:11)
--- NOTE | 2023-11-22 20:13 | PM.EVENT ---
Event Note Event Note Event Note: Cross Coverage Spoke with the patient's POA (Jaime, son) who would like to transition the patient to comfort care. He is requesting that the patient's role toe be continued, he voiced concerns about stroke and it potentially beating to more discomfort at the end of her life. All other medications and IV fluids were discontinued. Morphine, Ativan, and atropine drops p.r.n. ordered. Bedside RN notified of change. Home medications discontinued. Son is requesting we call if there is a change in condition. Awaiting hospice care.
[2023-11-22] MEDS: MORPHINE SULFATE (*CRX) 2 MG/ML INJ IV PUSH ×2 (21:05→23:11)
[2023-11-22] MEDS: LORazepam INJ (*CRX) 2 MG/ML VIAL IV PUSH (21:59)
[2023-11-23] MEDS: LORazepam INJ (*CRX) 2 MG/ML VIAL IV PUSH ×3 (00:56→20:38)
[2023-11-23] MEDS: MORPHINE SULFATE (*CRX) 2 MG/ML INJ IV PUSH ×4 (05:26→18:33)
[2023-11-23] MEDS: ATROPINE SULFATE 1% OPHTH SOLN 5 ML BOTTLE SUBLINGUAL ×3 (05:32→14:48)
[2023-11-23 06:00] VITALS: BP 163/86; PULSE 88; RESP 16; TEMP 36.1; O2SAT 97
[2023-11-23 07:28] VITALS: O2SAT 98
[2023-11-23 08:16] VITALS: BP 146/67; PULSE 96; RESP 14; O2SAT 98; O2SAT 99
--- NOTE | 2023-11-23 13:11 | PM.IMPN ---
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 Status: Acute (8) Peripheral vascular disease: Code(s): I73.9 - Peripheral vascular disease, unspecified Status: Acute (9) Confusion: Code(s): R41.0 - Disorientation, unspecified Status: Acute Plan Patient transitioned to comfort care on the request of her son Patient comfortable at bedside continue comfort care Below was care prior to comfort care EGD showed Gastric polyps, GI noted possible manometry for esophageal dysmotility S/p Cardizem infusion, now on Cardizem 360 mg daily and Propranolol Titrate home meds with clinical course Cardiology and GI following Neurology evaluated agrees with Parkinson's disease continue Carbidopa levodopa DVT prophylaxis hold anticoagulation until after EGD Dietitian consulted, Dronabinol increased to 10mg bid Patient and family considering hospice care PT/OT consulted now on comfort care Subjective Date/time seen: 11/23/23 13:11 Interval history: Patient transitioned to comfort care last night Comfortable at bedside Review of Systems Review of Systems: 12 systems were reviewed and are negative except for as per HPI. Exam Narrative: Comfortable at bedside Objective Data Vital Signs Vital Signs: Vital Signs - 24 hr 11/22/23 14:00 11/22/23 16:00 11/22/23 20:00 Temperature 98.3 F Pulse Rate 80 98 90 Respiratory Rate 20 Blood Pressure 160/70 H Pulse Oximetry 99 Oxygen Delivery 11/22/23 21:52 11/22/23 21:02 11/23/23 06:00 Temperature 97.9 F 97 F L Pulse Rate 76 88 Respiratory Rate 18 16 Blood Pressure 150/32 H 163/86 H Pulse Oximetry 96 97 97 Oxygen Delivery Room Air 11/23/23 08:16 11/23/23 08:16 11/23/23 07:28 Temperature Pulse Rate 96 Respiratory Rate 14 Blood Pressure 146/67 H Pulse Oximetry 98 99 98 Oxygen Delivery Room Air Room Air Intake/Output Intake/Output: Intake & Output 11/20/23 11/21/23 11/22/23 11/23/23 23:59 23:59 23:59 23:59 Intake Total 2391.4 2192.5 1246.2 0 Output Total 450 1000 1600 150 Balance 1941.4 1192.5 -353.8 -150 Meds/Results Medications: Active Medications Generic Name Dose Route Start Last Admin Trade Name Freq PRN Reason Stop Dose Admin Atropine Sulfate 1 - 2 drop 11/22/23 20:15 11/23/23 10:15 Atropine Sulfate 1% Ophth Soln 5 Ml Bottle SUBLINGUAL 1 drop Q4H PRN Administration Secretions Lorazepam 0.5 mg 11/22/23 19:48 11/22/23 20:11 Lorazepam Inj (*Crx) 2 Mg/Ml Vial IV PUSH 0.5 mg HS PRN Administration Anxiety and Agitation Lorazepam 2 mg 11/22/23 20:15 11/23/23 00:56 Lorazepam Inj (*Crx) 2 Mg/Ml Vial IV PUSH 2 mg Q2H PRN Administration Anxiety/Comfort Morphine Sulfate 2 mg 11/22/23 20:15 11/23/23 10:16 Morphine Sulfate (*Crx) 2 Mg/Ml Inj IV PUSH 2 mg Q30M PRN Administration COMFORT Ondansetron HCl 4 mg 11/16/23 15:04 11/17/23 13:42 Ondansetron Inj 4 Mg/2 Ml Vial IV PUSH 4 mg Q4H PRN Administration Nausea Rivaroxaban 20 mg 11/19/23 17:00 11/22/23 17:11 Rivaroxaban 20 Mg Tablet PO Not Given DAILY@1700 [facility] Radiology Results: ITS Impressions Chest X-Ray 11/16/23 12:03 IMPRESSION: 1: NO ACUTE CARDIOPULMONARY DISEASE. Head CT 11/16/23 13:52 IMPRESSION: 1. . No acute intracranial abnormality. Chest/Abdomen/Pelvis CT 11/16/23 14:17 IMPRESSION: CHEST: 1. Bilateral basal atelectasis with minimal right pleural effusion. 2. Dilated esophagus with air-fluid level and food content. ABDOMEN/PELVIS: 1. No evidence of appendicitis, diverticulitis or intestinal obstruction. 2. Thickened wall of the stomach with Dilated esophagus. Further evaluation advised. 3. Possible hypodensity in the left kidney upper pole. Artifacts are seen in the area. 4. Impacted fecal material in the rectum. Quality VTE Prophylaxis VTE prophylaxis: mechanical ordered
[2023-11-23 22:00] VITALS: BP 130/68; PULSE 118; RESP 18; TEMP 37.2; O2SAT 85
--- NOTE | 2023-11-23 22:37 | PC.NURSE ---
Photo Booth Operator pulled Ativan under 0.5mg dosage( 2mg/ 1ml), but on assessment decided to give 2mg dose as patient was more agitated and moving around in bed. HR was 150 with respirations of 18.
[2023-11-24] MEDS: LORazepam INJ (*CRX) 2 MG/ML VIAL IV PUSH (01:47)
[2023-11-24] MEDS: MORPHINE SULFATE (*CRX) 2 MG/ML INJ IV PUSH ×2 (05:43→12:49)
[2023-11-24 06:58] VITALS: BP 96/51; PULSE 120; RESP 18; TEMP 37.1; O2SAT 88
--- NOTE | 2023-11-24 09:28 | PM.IMPN ---
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 Status: Acute (8) Peripheral vascular disease: Code(s): I73.9 - Peripheral vascular disease, unspecified Status: Acute (9) Confusion: Code(s): R41.0 - Disorientation, unspecified Status: Acute Plan Patient transitioned to comfort care on the request of her son Patient comfortable at bedside continue comfort care Below was care prior to comfort care EGD showed Gastric polyps, GI noted possible manometry for esophageal dysmotility S/p Cardizem infusion, now on Cardizem 360 mg daily and Propranolol Titrate home meds with clinical course Cardiology and GI following Neurology evaluated agrees with Parkinson's disease continue Carbidopa levodopa DVT prophylaxis hold anticoagulation until after EGD Dietitian consulted, Dronabinol increased to 10mg bid Patient and family considering hospice care PT/OT consulted Continue comfort care Subjective Date/time seen: 11/24/23 09:28 Interval history: Patient on comfort care awaiting facility discharge for continued comfort care Review of Systems Review of Systems: 12 systems were reviewed and are negative except for as per HPI. Exam Narrative: Comfortable at bedside Objective Data Vital Signs Vital Signs: Vital Signs - 24 hr 11/23/23 22:00 11/24/23 06:58 Temperature 99.0 F 98.8 F Pulse Rate 118 H 120 H Respiratory Rate 18 18 Blood Pressure 130/68 96/51 L Pulse Oximetry 85 L 88 L Intake/Output Intake/Output: Intake & Output 11/21/23 11/22/23 11/23/23 11/24/23 23:59 23:59 23:59 23:59 Intake Total 2192.5 1246.2 0 Output Total 1000 1600 200 Balance 1192.5 -353.8 -200 Meds/Results Medications: Active Medications Generic Name Dose Route Start Last Admin Trade Name Freq PRN Reason Stop Dose Admin Atropine Sulfate 1 - 2 drop 11/22/23 20:15 11/23/23 14:48 Atropine Sulfate 1% Ophth Soln 5 Ml Bottle SUBLINGUAL 2 drop Q4H PRN Administration Secretions Lorazepam 0.5 mg 11/22/23 19:48 11/22/23 20:11 Lorazepam Inj (*Crx) 2 Mg/Ml Vial IV PUSH 0.5 mg HS PRN Administration Anxiety and Agitation Lorazepam 2 mg 11/22/23 20:15 11/24/23 01:47 Lorazepam Inj (*Crx) 2 Mg/Ml Vial IV PUSH 2 mg Q2H PRN Administration Anxiety/Comfort Morphine Sulfate 2 mg 11/22/23 20:15 11/24/23 05:43 Morphine Sulfate (*Crx) 2 Mg/Ml Inj IV PUSH 2 mg Q30M PRN Administration COMFORT Ondansetron HCl 4 mg 11/16/23 15:04 11/17/23 13:42 Ondansetron Inj 4 Mg/2 Ml Vial IV PUSH 4 mg Q4H PRN Administration Nausea Rivaroxaban 20 mg 11/19/23 17:00 11/23/23 18:24 Rivaroxaban 20 Mg Tablet PO Not Given DAILY@1700 [facility] Radiology Results: ITS Impressions Chest X-Ray 11/16/23 12:03 IMPRESSION: 1: NO ACUTE CARDIOPULMONARY DISEASE. Head CT 11/16/23 13:52 IMPRESSION: 1. . No acute intracranial abnormality. Chest/Abdomen/Pelvis CT 11/16/23 14:17 IMPRESSION: CHEST: 1. Bilateral basal atelectasis with minimal right pleural effusion. 2. Dilated esophagus with air-fluid level and food content. ABDOMEN/PELVIS: 1. No evidence of appendicitis, diverticulitis or intestinal obstruction. 2. Thickened wall of the stomach with Dilated esophagus. Further evaluation advised. 3. Possible hypodensity in the left kidney upper pole. Artifacts are seen in the area. 4. Impacted fecal material in the rectum. Quality VTE Prophylaxis VTE prophylaxis: mechanical ordered
--- NOTE | 2023-11-24 10:50 | PCDIET ---
Nutrition follow up: Pt is transitioned to comfort care and awaiting discharge on hospice. Intakes remain poor 0-10% meals. No labs. Monitor every 5 days or consult for additional needs.
--- NOTE | 2023-12-16 07:53 | P.DS_ITS ---
DS: Admitting Diagnosis Discharge Date 11/24/23 Admitting Diagnosis Confusion, vomiting, and weakness. DS: Discharge Diagnosis Discharge Diagnosis (1) Parkinsons disease: Code(s): G20.A1 - Parkinson's disease without dyskinesia, without mention of fluctuations Status: Acute (2) Dysphagia: Code(s): R13.10 - Dysphagia, unspecified Status: Acute (3) Atrial fibrillation with rapid ventricular response: Code(s): I48.91 - Unspecified atrial fibrillation Status: Acute DS: Summary Hospital Course Hospital Course: This is an 83-year-old female with history of atrial fibrillation on chronic anticoagulation, peripheral vascular disease status post carotid endarterectomy and bilateral lower extremity angioplasty and stents, hypertension, dyslipidemia, gastroesophageal reflux disease, anemia, and spinal stenosis who presented to the emergency department via [facility] for evaluation of confusion, vomiting, and weakness. The patient can not provide some history however her son Jaime provides the majority of the following. The patient has had multiple surgeries this year including carotid endarterectomy, bilateral lower extremity PTCA, and EGD for evaluation of dark stools found to have benign gastric polyp. Over the last couple of months family members have noticed that she has been getting confused and that has worsened quite dramatically since she was admitted to [facility] 3 weeks ago for rehab. She has become increasingly weak and is now to the point where she is being transferred with a lift. Family members had dinner with her last night and she seemed to be doing okay. This morning they received a phone call that the patient seemed to be more confused and was actively vomiting. She told her son that she was having some pain in her back as well. There are no reports of fever, cold or flu symptoms, falls, hematemesis, or diarrhea. At the time my evaluation she does not have active complaints and denies chest pain, shortness of breath, abdominal pain, and nausea. She has chronic lower extremity wound which always causes her a bit of pain but not more so than usual at this time. In the ED: Vital signs on arrival include a temperature of 97.1?, blood pressure 164/87, pulse 119, respiratory rate 22, SpO2 100% on room air. EKG showed atrial fibrillation with rapid ventricular response, incomplete right bundle-branch block, low QRS voltage in limb leads, left anterior fascicular block. Labs were significant for WBC count of 11.3, hemoglobin 10.8, INR 2.3, troponin < 0.012. Head CT and chest x-ray were without acute findings. CT of the chest, abdomen, and pelvis showed dilated esophagus with air-fluid level in food content and thickened wall of the stomach as well as impacted fecal material in the rectum. She has been started on a diltiazem drip and she is being admitted in this setting for further treatment and evaluation including GI consultation. Heart rate was controlled with Diltiazem, Metoprolol and Digoxin in consult with cardiology. However patient continued to have very poor oral intake. GI was consulted and patient underwnt EGD whcih showed gastric polyps, no obstruction or strictures. I discussed with her and son they stated calearly they do not want comfort care. Eventually, they decided to pursue comfort care. Patient was transitioned to comfort care in accordance with their wishes. Patient eventually transferred to hospice facility for continued comfort care. Time Spent with Patient Time attestation: Total time spent providing and/or coordinating discharge services: Discharge Plan Discharge Consulting providers: Nehemias Tolentino; Chalino Madden; Mateo Goff; Alice Hernandez; Alfred Gomez; Alonzo Pope; Andreina Paiz; Leidy Coleman; Justin Chapa; Pedro Benson; David Vargas Patient Disposition: Hospice [facility] Inpatient Discharge Instructions: GERD, Parkinson's Patient Instructions: Rivaroxaban (By mouth) Date of admission: 11/17/23 10:32 Primary Care Provider: Marixa Shepard Admitting Provider: Pete Alford Attending physician on admission: Gabriel Ahmadi Condition: Stable
== END 2023-11-24 14:05 | disposition hospice, inpatient (51) | DRG 57 ==
LOC: ANHED 11:59 → ANHIMU 16:34 → ANH2MED 11-21 14:22
PROVIDERS: General Practice; Internal Medicine Gastroenterology; Physician Assistant; Psychiatry & Neurology Neurology; Admitting Provider Internal Medicine; Emergency Provider Emergency Medicine; PCP Family Medicine; Visit Provider Internal Medicine
PROC: 0DJ08ZZ Inspection of Upper Intestinal Tract, Via Natural or Artificial Opening Endoscopic (ICD-10-PCS; CPT 43235; principal; 2023-11-19 13:00)
DX: G20.A1 Parkinson's disease without dyskinesia, without mention of fluctuations (principal); I48.20 Chronic atrial fibrillation, unspecified; E44.0 Moderate protein-calorie malnutrition; Z68.1 Body mass index [BMI] 19.9 or less, adult; L97.829 Non-pressure chronic ulcer of other part of left lower leg with unspecified severity; K22.89 Other specified disease of esophagus; R11.10 Vomiting, unspecified; F02.80 Dementia in other diseases classified elsewhere, unspecified severity, without behavioral disturbance, psychotic disturbance, mood disturbance, and anxiety; I10 Essential (primary) hypertension; R41.81 Age-related cognitive decline; D72.829 Elevated white blood cell count, unspecified; K31.89 Other diseases of stomach and duodenum; E78.5 Hyperlipidemia, unspecified; H40.9 Unspecified glaucoma; I73.9 Peripheral vascular disease, unspecified; R13.10 Dysphagia, unspecified; K31.7 Polyp of stomach and duodenum; K21.9 Gastro-esophageal reflux disease without esophagitis; D64.9 Anemia, unspecified; M48.00 Spinal stenosis, site unspecified; K56.41 Fecal impaction; Z66 Do not resuscitate; M21.372 Foot drop, left foot; Z87.891 Personal history of nicotine dependence; Z90.49 Acquired absence of other specified parts of digestive tract; Z98.49 Cataract extraction status, unspecified eye; Z79.01 Long term (current) use of anticoagulants; Z95.820 Peripheral vascular angioplasty status with implants and grafts; Z79.82 Long term (current) use of aspirin; Z98.890 Other specified postprocedural states
CPT/HCPCS: 36415; 70450; 71045; 71260; 74177; 80048; 80053; 81001; 82306; 82607; 82746; 83605; 83735; 83921; 84443; 84484; 85025; 85027; 85610; 85730; 92610; 93005; 96361; 96366; 96374; 96375; 97161; 99285; A9270; G0378; J0330; J1160; J1650; J2003; J2060; J2270; J2405; J2470; J2704; J3480; J7030; J7040; J7050; J7120; Q9967

== ENCOUNTER 2023-11-24 14:06 | HOS | payer OTHER, SELFPAY ==
[2023-11-24 14:28] VITALS: BMI 18.6
[2023-11-24 15:47] VITALS: PULSE 85; RESP 14
[2023-11-24] MEDS: MORPHINE SULFATE INJ (*CRX) 50 MG in SODIUM CHLORIDE 0.9% IV 95 ML IV CONT (15:47)
[2023-11-24] MEDS: LORazepam INJ (*CRX) 2 MG/ML VIAL 0.5 MG IV PUSH (18:33)
[2023-11-24] MEDS: MORPHINE SULFATE (*CRX) 2 MG/ML INJ IV PUSH (19:00)
[2023-11-24] MEDS: GLYCOPYRROLATE INJ (*SP) 0.2 MG/ML VIAL 0.1 MG IV PUSH (19:24)
[2023-11-24 20:00] VITALS: O2SAT 93
--- NOTE | 2023-11-24 20:16 | WPDHPUPDATE1 ---
History and Physical Update Update Date/Time: 11/24/23 20:16 History and Physical has been reviewed, including an updated exam of the patient. There are NO changes in the patient's condition. Risks, benefits, and alternatives have been discussed and questions answered. Patient agrees to proceed with procedure. 83 y/o female patient admitted to [facility] with diagnosis of Peripheral Vascular Disease wit gangrene after been unresponsive since last Friday ,without any intake as well.Previously (3-6 months )patient was alert and oriented X3 ,able to make needs known and ambulating with walker.Began having decreased appetite and increased weakness and went for rehab at [facility] but not progressing and complaining of pain so finally came to Emergency Room for evaluation on 11/17/23.Found unresponsive and not eating nor drinking .Given IVF's but in view of no response family decided for hospice care thus admitted today (11/24/2023).
[2023-11-24] MEDS: HYOSCYAMINE SULFATE 0.0625 MG TABLET PO ×2 (20:35→23:35)
[2023-11-25] MEDS: GLYCOPYRROLATE INJ (*SP) 0.2 MG/ML VIAL 0.1 MG IV PUSH (00:33)
[2023-11-25] MEDS: HYOSCYAMINE SULFATE 0.0625 MG TABLET PO ×5 (02:11→21:54)
[2023-11-25 06:44] VITALS: BP 148/84; PULSE 93; RESP 24; TEMP 36.4; O2SAT 94
[2023-11-25 07:42] VITALS: O2SAT 88
[2023-11-25 08:03] VITALS: O2SAT 90
--- NOTE | 2023-11-25 09:10 | P.PN_ITS ---
Progress Note: A&P Assessment and Plan (1) Peripheral vascular disease: Code(s): I73.9 - Peripheral vascular disease, unspecified Status: Acute Assessment and Plan: Continue comfort/EOL care. T&R q2h to maintain skin integrity. Oral care PRN. PRN comfort meds to be given when necessary. Provide emotional support to family/friends. Plan Continue comfort/EOL care. T&R q2h to maintain skin integrity. Oral care PRN. PRN comfort meds to be given when necessary. Provide emotional support to family/friends. Time Spent With Patient Time with patient: 25 - 35 minutes Subjective Date/time seen: 11/25/23 09:10 Interval history: Pt is an 83 year old female who was admitted to [facility] hospice services last night with the diagnosis of PVD. [facility] admission due to need for IV comfort medications. PMH of PVD, parkinsons, a.fib, dementia, HLD, glaucome, HTN. Upon admission, pt was restless. MS04 gtts started at 0.5 mg/hr. Pt needing a PRN dose of Ativan and Morphine last night. Once pt was calmed, pt remained calm rest of night. This AM, pt experiencing some restlessness/facial grimacing. HR in 160s and irreg. Morphine gtts increased to 1 mg/hr. Pt appearing comfortable by end of my visit. Pt unresponsive with no PO intake. Son at bedside. Emotional support provided. EOL education given. Pts son had no further questions. Review of Systems Review of Systems: ROS unobtainable: Yes unobtainable due to medical condition and unobtainable due to mental status Constitutional: Constitutional: Reports as per HPI Exam Const: General: comfortable and no acute distress Limitations: altered mental status HENMT: Head: normal to inspection Neck: Neck: normal visual inspection Chest: Chest palpation & inspection: normal inspection of the chest Resp: Effort & Inspection: normal respiratory effort Auscultation: clear to auscultation bilaterally Cardio: Rate: tachycardic Rhythm: abnormal rhythm Heart sounds: S1 normal heart sound present and S2 normal heart sound present GI: Inspection: normal to inspection GI Palp: Yes Soft to palpation Auscultation: normal bowel sounds Rectal Exam: deferred Extrem: Other: mottling noted to BLE and BUE Objective Data Vital Signs Vital Signs: Vital Signs - 24 hr 11/24/23 14:32 11/24/23 15:47 11/24/23 20:00 Temperature Pulse Rate 85 Respiratory Rate 14 Blood Pressure Pulse Oximetry 93 Oxygen Delivery Room Air Nasal Cannula Oxygen Flow Rate 1 Fraction of Inspired Oxygen 11/25/23 06:44 11/25/23 07:42 11/25/23 08:03 Temperature 36.4 C Pulse Rate 93 Respiratory Rate 24 H Blood Pressure 148/84 H Pulse Oximetry 94 88 L 90 Oxygen Delivery Nasal Cannula Nasal Cannula Oxygen Flow Rate 1 2 Fraction of Inspired Oxygen 28 Intake/Output Intake/Output: Intake & Output 11/22/23 11/23/23 11/24/23 11/25/23 23:59 23:59 23:59 23:59 Intake Total 2.1 Balance 2.1 Meds/Results Medications: Active Medications Generic Name Dose Route Start Last Admin Trade Name Freq PRN Reason Stop Dose Admin Acetaminophen 650 mg 11/24/23 14:45 Acetaminophen 650 Mg Suppository RECTAL Q4H PRN Fever Artificial Tears 1 drop 11/24/23 14:49 Artificial Tears Ophth Soln 15 Ml Bottle EACH EYE Q4H PRN Dry Eye(s) Bisacodyl 10 mg 11/24/23 14:45 Bisacodyl 10 Mg Suppository RECTAL DAILY PRN Constipation Glycopyrrolate 0.1 mg 11/24/23 14:43 11/25/23 00:33 Glycopyrrolate Inj (*Sp) 0.2 Mg/Ml Vial IV PUSH 0.1 mg Q6H PRN Administration secretions Hyoscyamine 0.0625 mg 11/24/23 19:46 11/25/23 02:11 Hyoscyamine Sulfate 0.0625 Mg Tablet PO 0.0625 mg Q2H PRN Administration throat congestion Hyoscyamine 0.0625 mg 11/24/23 20:00 11/25/23 04:29 Hyoscyamine Sulfate 0.0625 Mg Tablet PO 0.0625 mg Q4H RAHEEL Administration Morphine Sulfate 50 mg in 100 mls @ 2 mls/hr 11/25/23 09:10 IV CONT .Q24H RAHEEL 1 MG/HR Lorazepam 0.5 mg 11/24/23 14:45 11/24/23 18:33 Lorazepam Inj (*Crx) 2 Mg/Ml Vial IV PUSH 0.5 mg Q4H PRN Administration ANXIETY/RESTLESSNESS Morphine Sulfate 2 mg 11/24/23 14:48 11/24/23 19:00 Morphine Sulfate (*Crx) 2 Mg/Ml Inj IV PUSH 2 mg Q4H PRN Administration Pain Prochlorperazine Edisylate 10 mg 11/24/23 14:45 Prochlorperazine Edisylate 10 Mg/2 Ml Vial IV PUSH Q6H PRN Nausea And Vomiting
[2023-11-25] MEDS: MORPHINE 50 MG/NS 100ML (*CRX) 50 MG/100 ML BAG IV CONT (09:23)
[2023-11-25 15:38] VITALS: BP 144/65; PULSE 114; RESP 22; O2SAT 96
[2023-11-25 20:00] VITALS: PULSE 140; RESP 16; O2SAT 96
[2023-11-25 20:27] VITALS: BP 134/64; PULSE 101; RESP 20; TEMP 36.9; O2SAT 95
[2023-11-26] MEDS: HYOSCYAMINE SULFATE 0.0625 MG TABLET PO ×4 (05:06→20:49)
[2023-11-26 08:00] VITALS: O2SAT 94
[2023-11-26] MEDS: MORPHINE 50 MG/NS 100ML (*CRX) 50 MG/100 ML BAG IV CONT (10:00)
[2023-11-26 14:30] VITALS: BP 153/79; PULSE 73; RESP 22; TEMP 37.8; O2SAT 95
[2023-11-26 20:00] VITALS: PULSE 85; RESP 24; O2SAT 93
[2023-11-26 20:44] VITALS: BP 152/85; PULSE 85; RESP 24; TEMP 36.6; O2SAT 93
[2023-11-26] MEDS: ARTIFICIAL TEARS OPHTH SOLN 15 ML BOTTLE 1 DROP EACH EYE (20:50)
[2023-11-27] MEDS: HYOSCYAMINE SULFATE 0.0625 MG TABLET PO ×5 (04:00→16:48)
[2023-11-27] MEDS: ARTIFICIAL TEARS OPHTH SOLN 15 ML BOTTLE 1 DROP EACH EYE (05:22)
[2023-11-27 08:00] VITALS: O2SAT 94
[2023-11-27] MEDS: MORPHINE 50 MG/NS 100ML (*CRX) 50 MG/100 ML BAG IV CONT (10:17)
[2023-11-27] MEDS: LORazepam INJ (*CRX) 2 MG/ML VIAL 0.5 MG IV PUSH (10:41)
[2023-11-27 14:00] VITALS: BP 118/82; PULSE 83; RESP 22; TEMP 37.3; O2SAT 95
--- NOTE | 2023-12-12 13:39 | PM.IMHP ---
H&P: HPI History of Present Illness Date/Time: 11/24/23 13:39 Chief Complaint: Been admitted for hospice care. Narrative: Patient unresponsive upon admission. 83 y/o female patient admitted to [facility] with diagnosis of Peripheral Vascular Disease wit gangrene after been unresponsive since last Friday ,without any intake as well.Previously (3-6 months )patient was alert and oriented X3 ,able to make needs known and ambulating with walker.Began having decreased appetite and increased weakness and went for rehab at [facility] but not progressing and complaining of pain so finally came to Emergency Room for evaluation on 11/17/23.Found unresponsive and not eating nor drinking .Given IVF's but in view of no response family decided for hospice care thus admitted today (11/24/2023). Review of Systems Review of Systems: patient unresponsive at this time [facility] Past Medical History Medical History Atrial fibrillation Chronic anticoagulation Dementia Dyslipidemia Glaucoma Hypertension Nausea and vomiting in adult Parkinsonian syndrome Patient has tremors of the arms and jaw but has not had a diagnosis of Parkinson's. Parkinsons disease Peripheral vascular disease Surgical History Surgical History History of angioplasty of peripheral vessel Bilateral lower extremity angioplasty and stents. History of cardiac catheterization History of carotid endarterectomy History of cataract extraction History of cholecystectomy History of lumbar laminectomy Family History Family History Father Acute myocardial infarction Cerebrovascular accident Other Hypertension Social History Social History (Updated 11/24/23 @ 20:18 by Didier Armas MD) Social History: Healthcare power of research attorney: Jaime Meier, son ([phone]). Code status : DNR Smoking packs per day: 0.5 Smoking cigarettes per day: 10.0 Years smoked: 20 Smoking pack-years: 10.00 Smoking status: Former smoker Tobacco type: cigarettes Second hand tobacco smoke exposure: Yes Alcohol intake: former Substance use: never Do You Feel Safe in your Home?: Yes Lack of Transportation: No Lack of Food: Never True Current Housing: I Have Housing Concerned About Future Housing: No Difficulty Paying Gas/Electric Bills: No Difficulty Paying for Meds: No Currently Unemployed: No Education: High School Diploma/GED Difficulty w/ Childcare or Family Care: No Spiritual care concerns: No Agree to blood products: Yes Meds Home Medications and Allergies Home Medications Medication Instructions Recorded Confirmed Type multivitamin 1 tablet PO DAILY 02/05/19 11/16/23 History brinzolamide 1 %-brimonidine 0.2 % 1 drp ophthalmic (eye) BID #1 mL 02/19/19 11/16/23 Rx eye drops,suspension (Simbrinza) candesartan 32 1 tablet PO DAILY #30 tabs 02/19/19 11/16/23 Rx mg-hydrochlorothiazide 12.5 mg tablet diltiazem HCl 360 mg capsule,24 360 mg PO DAILY #30 caps 02/19/19 11/16/23 Rx hr,extended release latanoprost 0.005 % eye drops 1 drp ophthalmic (eye) HS #1 mL 02/19/19 11/16/23 Rx omeprazole magnesium 20 mg 20 mg PO DAILY #30 caps 02/19/19 11/16/23 Rx capsule,delayed release (Acid Premium Card Cancellation Clerk (omeprazole)) potassium chloride 20 mEq 20 meq PO DAILY@0800 #30 tabs 02/19/19 11/16/23 Rx tablet,extended release (K-Tab) pravastatin 20 mg tablet 20 mg PO HS #30 tabs 02/19/19 11/16/23 Rx propranolol 60 mg tablet 60 mg PO Q12H #60 tabs 02/19/19 11/16/23 Rx alendronate 70 mg tablet 70 mg PO WEEKLY 11/17/23 11/17/23 History aspirin 81 mg chewable tablet 81 mg PO QPM 11/17/23 11/17/23 History calcium 600 mg (as 1 tablet PO QPM 11/17/23 11/17/23 History carbonate)-vitamin D3 10 mcg (400 unit) tablet (Calcium with Vitamin D) cyanocobalamin (vitamin B-12) 1,000 mcg IM [id number] 11/17/23 11/17/23 History 1,000 mcg/mL injection solution docusate sodium 100 mg capsule 100 mg PO BID PRN Constipation 11/17/23 11/17/23 History gabapentin 100 mg capsule 100 mg PO TID 11/17/23 11/17/23 History iron,carbonyl 30 mg-vitamin C 10 1 tablet PO BID 11/17/23 11/17/23 History mg-FOS 25 mg chewable tablet light mineral oil 1 %-mineral oil 1 drp ophthalmic (eye) TID PRN Dry 11/17/23 11/17/23 History 4.5 % eye drops (Soothe XP) Eyes megestrol 625 mg/5 mL (125 mg/mL) 5 ml PO DAILY 11/17/23 11/17/23 History oral suspension rivaroxaban 20 mg tablet (Xarelto) 20 mg PO QPM 11/17/23 11/17/23 History sodium chloride 1,000 mg soluble 1,000 mg PO BID 11/17/23 11/17/23 History tablet timolol 0.5 % eye drops 1 drp EACH EYE DAILY 11/17/23 11/17/23 History urea 20 % topical cream 1 applic topical DAILY 11/17/23 11/17/23 History (Ureacin-20) Allergies Allergy/AdvReac Type Severity Reaction Status Date / Time Sulfa (Sulfonamide Allergy Itching Verified 02/05/19 21:38 Antibiotics) Exam Narrative: Patient unresposive to verbal stimulation nor tactile , only to deep pain stimuli. Assessment and Plan Assessment and plan (1) Peripheral vascular disease: Code(s): I73.9 - Peripheral vascular disease, unspecified Status: Acute Plan will start patient on pain medication to keep as comfortable as possible.Will keep gangrene toe as clean and dry as possible.
--- NOTE | 2023-12-24 10:47 | P.PNIM_ITS ---
Progress Note: A&P Assessment and Plan (1) Hospice care: Code(s): Z51.5 - Encounter for palliative care Status: Acute Assessment and Plan: * Continue current regimen Subjective Date/time seen: 11/26/23 10:[address] Del Real who is no longer on staff. Interval history: Remains comfortable and unresponsive. Review of Systems Review of Systems: ROS unobtainable: Yes unobtainable due to medical condition Exam Narrative: Resting comfortably per RN report
--- NOTE | 2023-12-24 10:47 | PM.DDS ---
Discharge Summary Date and Time Date of : 11/27/23 Time of : 17:19 Provider Pronounced By: 2 RNs Name of First RN That Pronounced: Victoria Naqvi Name of Second RN That Pronounced: Tika [place] Probable Cause of Probable Cause of : Parkinson's disease Summary Hospital Course: Admitted to inpatient hospice service for symptom management at end of life. Medications were titrated to comfort. Mrs. Meier peacefully. Additional Data Confirmation of as documented by pronouncing clinician: Pupillary Reflex, Palpable Pulses, Response to Stimuli, Heart Tones and Breath Sounds Name of Provider Notified: Dr. Dailey Time Provider Notified: 17:20 Explosives Detonator Notified: Yes Date [facility] Notified of : 11/27/23 Time [facility] Notified of : 17:52
== END 2023-11-27 17:19 | disposition expired | DRG 301 ==
PROVIDERS: Admitting Provider Internal Medicine Nephrology; PCP Family Medicine; Visit Provider Internal Medicine Nephrology
DX: I73.9 Peripheral vascular disease, unspecified (principal)
CPT/HCPCS: A9270; J1596; J2060; J2270